=== PATIENT | female | born 1945 | race Caucasian/White ===

== ENCOUNTER 2020-05-05 | Outpatient (REF) | payer MEDICARE, MEDICAID, SELFPAY | END 2020-05-05 00:01 | LOC: HO.MMNH3L | PROVIDERS: Visit Provider Family Medicine | DX: Z20.828 Contact with and (suspected) exposure to other viral communicable diseases (principal) | CPT/HCPCS: U0003 ==

== ENCOUNTER 2020-11-06 07:53 | Outpatient (REF) | payer MEDICARE, MEDICAID, SELFPAY ==
[2020-11-06 08:50] LABS: Hemoglobin 11.6 g/dl (12.0-16.0); Mean Corpuscular HGB Conc 32.2 g/dl (31.0-35.0); Mean Corpuscular Volume 102.3 fL (80-98); Mean Platelet Volume 10.5 fL (9.4-12.3); Platelet Count 271 X10*3/uL (160-400); Red Blood Count 3.52 X10*6/uL (4.20-5.50); Red Cell Distribution Width 13.9 % (11.0-16.0); White Blood Count 5.6 X10*3/uL (4.8-10.8)
[2020-11-06 09:12] LABS: Anion Gap 13 (12-20); Blood Urea Nitrogen 20 mg/dL (9-16); Calcium 9.2 mg/dL (8.4-10.2); Carbon Dioxide 28 mmol/L (22-29); Chloride 106 mmol/L (96-108); Estimated Average Glucose 160 mg/dL; Estimated Glomerular Filt Rate > 60; Glucose Random 117 mg/dL (60-115); Hemoglobin A1c % 7.2 %; Potassium 4.5 mmol/L (3.3-5.1); Sodium 142 mmol/L (135-145)
[2020-11-06 09:34] LABS: Free T4 (Free Thyroxine) 1.08 ng/dL (0.71-1.85); Thyroid Stimulating Hormone 1.15 uIU/mL (0.32-4.0)
== END 2020-11-06 07:54 | disposition home or self-care (01) ==
LOC: HO.MMNH3L 07:53
PROVIDERS: Visit Provider Family Medicine
DX: I10 Essential (primary) hypertension (principal); K21.9 Gastro-esophageal reflux disease without esophagitis; E11.9 Type 2 diabetes mellitus without complications
CPT/HCPCS: 36415; 80048; 83036; 84439; 84443; 85027

== ENCOUNTER 2021-03-05 23:00 | Outpatient (REF) | payer MEDICARE, MEDICAID, SELFPAY ==
[2021-03-06 05:49] LABS: Glucose Urine UA NEG (NEG); Leukocyte Esterase Urine 2+ (NEG); Nitrite Urine NEG (NEG); UACC Culture Trigger YES; Urine Blood NEG (NEG); Urine Ketones NEG (NEG); Urine Protein NEG (NEG-TRACE)
[2021-03-06 05:52] LABS: Appearance Urine CLEAR; Color Urine YELLOW
[2021-03-06 06:03] LABS: Bacteria Urine 4+ /LPF; Squamous Epithelial Cell Urine 1+ /LPF
== END 2021-03-05 23:01 | disposition home or self-care (01) ==
LOC: HO.MMNH3L 23:00
PROVIDERS: Visit Provider Family Medicine
DX: R41.0 Disorientation, unspecified (principal); N39.0 Urinary tract infection, site not specified
CPT/HCPCS: 81001; 87086; 87088; 87186

== ENCOUNTER 2021-03-06 05:07 | Outpatient (REF) | payer MEDICARE, MEDICAID, SELFPAY ==
[2021-03-06 05:10] LABS: MANUAL DIFF FLAG NO
[2021-03-06 05:46] LABS: Basophils Percent Auto 0.4 % (0-2); Eosinophils Absolute Auto 0.1 X10*3/uL (0.0-0.4); Eosinophils Percent Auto 1.3 % (0-4); Hematocrit 41.4 % (37-47); Hemoglobin 13.6 g/dl (12.0-16.0); Imm Gran Abs Auto 0.04 X10*3/uL (0.00-0.03); Imm Gran Pct Auto 0.4 % (0.0-0.4); Lymphocytes Absolute Auto 2.7 X10*3/uL (1.2-4.9); Mean Corpuscular HGB Conc 32.9 g/dl (31.0-35.0); Mean Corpuscular Hemoglobin 33.6 pg (27.0-33.0); Mean Corpuscular Volume 102.2 fL (80-98); Mean Platelet Volume 9.9 fL (9.4-12.3); Monocytes Absolute Auto 1.3 X10*3/uL (0.1-1.2); Monocytes Percent Auto 12.7 % (2-11); Neutrophils Absolute Auto 5.9 X10*3/uL (2.0-8.3); Neutrophils Percent Auto 58.2 % (45-73); Platelet Count 348 X10*3/uL (160-400); Red Blood Count 4.05 X10*6/uL (4.20-5.50); White Blood Count 10.1 X10*3/uL (4.8-10.8)
[2021-03-06 06:03] LABS: Alanine Aminotransferase 11 U/L (0-31); Albumin Level 4.2 g/dL (3.5-5.0); Alkaline Phosphatase 82 U/L (39-117); Anion Gap 15 (12-20); Aspartate Amino Transferase 13 U/L (5-31); Bilirubin Total 0.5 mg/dL (0.0-1.0); Blood Urea Nitrogen 20 mg/dL (9-16); Calcium 10.4 mg/dL (8.4-10.2); Carbon Dioxide 26 mmol/L (22-29); Chloride 104 mmol/L (96-108); Estimated Glomerular Filt Rate 44; Glucose Random 170 mg/dL (60-115); Potassium 4.9 mmol/L (3.3-5.1); Sodium 140 mmol/L (135-145)
== END 2021-03-06 05:08 | disposition home or self-care (01) ==
LOC: HO.MMNH3L 05:07
PROVIDERS: Visit Provider Family Medicine
DX: Z13.89 Encounter for screening for other disorder (principal)
CPT/HCPCS: 36415; 80053; 85025

== ENCOUNTER 2021-03-08 11:47 | Inpatient (IN) | payer MEDICARE, MEDICAID, SELFPAY ==
--- NOTE | ~2021-03-08 | CT_ITS ---
EXAMINATION: CT HEAD WITHOUT CONTRAST CLINICAL INFORMATION: Altered mental status COMPARISON: Previous exam December 2015 TECHNIQUE: Contiguous axial imaging was performed from the skull base to vertex without intravenous administration of contrast. This CT examination was performed using dose optimization techniques as appropriate, variously including the following: *Automated exposure control *Adjustment of mA and/or kV according to patient size (this includes techniques or standardized protocols for targeted exams where dose is matched to indication/reason for exam; i.e. extremities or head) *Use of iterative reconstruction technique DLP: 814 mGy-cm FINDINGS: There is no evidence of an extra-axial collection. There is no evidence of intra-axial or extra-axial hemorrhage. The ventricles and extra-axial CSF spaces are prominent. There is evidence of an old left occipital infarct that is new in the interval from 2016.. No mass, mass effect or acute infarct is seen. No skull fracture is seen. There is soft tissue opacification of the right mastoid air cells. Left mastoid air cells, middle ears and paranasal sinuses are clear. CT/CT head/brain wo con IMPRESSION: No acute findings. Old left occipital infarct. Soft tissue opacification of the right mastoid air cells questionable for mastoiditis. This is new from 2016 exam as well.
--- NOTE | ~2021-03-08 | FL_ITS ---
EXAMINATION: FL BARIUM SWALLOW CLINICAL INFORMATION: Esophageal obstruction. Rule out achalasia. COMPARISON: None TECHNIQUE: Limited barium swallow was performed using thin barium with the patient lying on the fluoroscopy table and slightly elevated. The patient could not swallow a barium tablet. Fluoroscopy time: 2.2 minutes DAP: 17 Gycm2 Images: 66 FINDINGS: No aspiration or penetration is seen. There is abnormal esophageal motility. There is persistent dilatation of the esophagus suggestive and narrowing distally suggestive of achalasia. There is a small sliding-type hiatal hernia. Gastroesophageal reflux was not observed the patient in this position. Patient was administered a barium tablet. This stayed in the mouth and the patient could not swallow the tablet. FL/FL barium swallow IMPRESSION: Limited exam. Abnormal esophageal motility and achalasia. Small sliding-type hiatal hernia.
--- NOTE | ~2021-03-08 | CT_ITS ---
EXAMINATION: CT CHEST WITHOUT CONTRAST CLINICAL INFORMATION: Question aspiration. Acute mental status change. COMPARISON: Previous chest x-rays most recent March 2017 chest CTA December 2014 TECHNIQUE: Multidetector volumetric CT imaging of the chest was done. Axial MIP volume rendering provided. Sagittal and coronal reformatted images were obtained. This CT examination was performed using dose optimization techniques as appropriate, variously including the following: *Automated exposure control *Adjustment of mA and/or kV according to patient size (this includes techniques or standardized protocols for targeted exams where dose is matched to indication/reason for exam; i.e. 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 LUNGS: There is bilateral lower lobe volume loss. There is right lower lobe airspace disease with air bronchograms suggestive of pneumonia. There is also evidence of right lower lobe atelectasis. There is atelectasis or pneumonia in the left lower lobe. There is subsegmental atelectasis in the inferior segment of the lingula and dependently in both upper lobes. There is a small 2 mm left upper lobe nodule axial image 74 series 16. There is a 3 mm right upper lobe nodule axial image 199 series 16. MEDIASTINUM: The mediastinum is normal. PLEURA: There is no pleural effusion. No pleural mass or thickening. AXILLA: No lymphadenopathy. UPPER ABDOMEN: There is a 1 cm low-attenuation lesion exophytic to the upper pole of the left kidney suggestive of a cyst. OSSEOUS STRUCTURES: There is curvature of the lower thoracic and upper lumbar spine to the right. There are degenerative changes of the spine. CT/CT chest wo con IMPRESSION: Bibasilar atelectasis and pneumonia, right greater than left. There is volume loss to the both lower lobes..
[2021-03-08 11:52] VITALS: BP 90/52; PULSE 120; O2SAT 94
[2021-03-08 11:54] VITALS: BP 102/63; PULSE 108; RESP 14; TEMP 36.6; O2SAT 95; BMI 37.2
--- NOTE | 2021-03-08 12:01 | ED_ITS ---
HPI - General Adult General Chief complaint: Altered Mental Status Stated complaint: has uti, ams Time Seen by Provider: 03/08/21 12:00 Source: EMS Mode of arrival: EMS Limitations: altered mental status History of Present Illness HPI narrative: 75-year-old female presents from her senior [facility] because of the staff's concerns there for altered mental status, low oxygen saturation, possible aspiration, and UTI. Patient is being treated with Macrobid for UTI. Macrobid was started 2 days ago. Staff at senior care stated there was a possible aspiration when patient was eating yesterday. Chest x-ray was negative yesterday. Patient is normally on 2-3 L of oxygen, now she requires 4 L of oxygen. Staff at senior care states patient's oxygen was in the low 90s earlier today. EMS states patient's blood pressure was 90/52 upon arrival. Staff at senior care states patient's mental status has changed since yesterday and worsened. Patient does not have a history of dementia. Patient has a past medical history of COPD, atrial fibrillation, diabetes, chronic kidney disease, hypertension, B12 deficiency, hypothyroid, bipolar, trouble walking. Related Data Home Medications Medication Instructions Recorded Confirmed benztropine 1 mg tablet 1 tab PO BID 03/08/21 03/08/21 cetirizine 10 mg tablet 10 mg PO DAILY 03/08/21 03/08/21 clonazepam 0.25 mg disintegrating 0.25 mg PO Q12H PRN 03/08/21 03/08/21 tablet clonazepam 0.5 mg tablet 1 tab PO BEDTIME 03/08/21 03/08/21 cyanocobalamin (vitamin B-12) 100 200 mcg PO DAILY 03/08/21 03/08/21 mcg tablet enalapril maleate 5 mg tablet 5 mg PO DAILY 03/08/21 03/08/21 (Vasotec) fentanyl 12 mcg/hr transdermal 1 patch TOPICAL Q3D 03/08/21 03/08/21 patch fluoxetine 10 mg capsule 1 cap PO DAILY 03/08/21 03/08/21 fluoxetine 20 mg capsule 2 cap PO QAM 03/08/21 03/08/21 gabapentin 400 mg capsule 1 cap PO DAILY 03/08/21 03/08/21 gabapentin 600 mg tablet 1 tab PO BID 03/08/21 03/08/21 levothyroxine 75 mcg tablet 1 tab PO DAILY 03/08/21 03/08/21 nitrofurantoin 100 mg PO BID 03/08/21 03/08/21 monohydrate/macrocrystals 100 mg capsule (Macrobid) nitroglycerin 0.4 mg sublingual 0.4 mg SUBLINGUAL DIRECTED PRN 03/08/21 03/08/21 tablet oxycodone 5 mg tablet 1 tab PO QID PRN 03/08/21 03/08/21 pioglitazone 15 mg tablet (Actos) 15 mg PO DAILY 03/08/21 03/08/21 ziprasidone HCl 20 mg capsule 20 mg PO BID 03/08/21 03/08/21 (Geodon) Allergies Allergy/AdvReac Type Severity Reaction Status Date / Time ciprofloxacin [From CIPRO] Allergy Unknown UNKNOWN Unverified 03/20/20 14:33 clarithromycin [From Biaxin] Allergy Unknown UNKNOWN Unverified 03/20/20 14:33 Effexor Allergy Unknown Unverified 12/05/15 00:00 Floxin Otic Allergy Unknown Unverified 12/05/15 00:00 levofloxacin [From LEVAQUIN] Allergy Unknown UNKNOWN Unverified 03/20/20 14:33 loratadine [From CLARITIN] Allergy Unknown UNKNOWN Unverified 03/20/20 14:33 ofloxacin [From FLOXIN] Allergy Unknown UNKNOWN Unverified 03/20/20 14:33 penicillin V Allergy Unknown Unverified 12/05/15 00:00 Penicillins [PENICILLINS] Allergy Unknown UNKNOWN Unverified 03/20/20 14:33 sertraline [Zoloft] Allergy Unknown Verified 12/05/15 00:00 Sulfa (Sulfonamide Allergy Unknown Unverified 09/24/16 00:00 Antibiotics) sulfamethoxazole Allergy Unknown UNKNOWN Unverified 03/20/20 14:33 [From BACTRIM] trimethoprim [From BACTRIM] Allergy Unknown UNKNOWN Unverified 03/20/20 14:33 venlafaxine [VENLAFAXINE] Allergy Unknown UNKNOWN Unverified 03/20/20 14:33 From CIPRO Allergy Unknown UNKNOWN Uncoded 03/20/20 14:33 From EFFEXOR Allergy Unknown UNKNOWN Uncoded 03/20/20 14:33 From ZOLOFT Allergy Unknown UNKNOWN Uncoded 03/20/20 14:33 Review of Systems Review of Systems: Patient able to tell me where she is, day of the week, and the season. Denies all complaints. However, patient keeps asking the same questions over and over, and seems disoriented. Patient is denying any positive review of systems. ROS unable to obtain due to patient's altered mental status. 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 Weakness Surgical History History of total replacement of right hip Social History Social History Advance Directives: No Advance Directives Information Provided: No Physical Exam Vital Signs: Vital Signs: Last Vital Signs Temp 100.3 F 03/08/21 14:13 Pulse 95 03/08/21 14:13 Resp 16 03/08/21 14:13 BP 106/50 L 03/08/21 14:13 Pulse Ox 95 03/08/21 14:13 Oxygen Flow Rate 3 03/08/21 11:54 Body Mass Index 37.2 Const: General: alert, awake and confusion Nutritional Appearance: obese morbidly obese Orientation/consciousness: oriented to person, oriented to place and confusion Limitations: altered mental status HENMT: Head: Yes normal to inspection, Yes normocephalic and Yes atraumatic Ears: hearing grossly normal bilaterally General nose exam: Normal external nose present Face and sinus: Yes normal facial exam Mouth: mucous membranes dry Throat: Yes posterior oropharynx normal and Yes other (dry mucous membranes) Eyes: Pupils: Equal, round and reactive pupils present EOM: EOMs intact bilaterally Neck: Neck: Yes normal visual inspection, Yes full ROM, Yes no meningeal signs and Yes trachea midline Resp: Effort & Inspection: normal respiratory effort and able to speak in complete sentences Auscultation: no rales, no rhonchi, no wheezes and diminished lung sounds diffuse Cardio: Rate: tachycardic Rhythm: regular rhythm Heart sounds: S1 normal heart sound present and S2 normal heart sound present GI: Inspection: Yes Abdominal panniculus present and Yes obesity Palpation (GI): Soft to palpation, nontender and no guarding Percussion: Yes normal to percussion Auscultation: normal bowel sounds Skin: Other: Shiny skin with nonpitting edema bilateral lower extremities Neuro: General: oriented to person, oriented to place, no meningeal signs and confusion Cranial nerves: Yes Equal, round and reactive pupils present Extrem: Right lower extremity: edema Details: non-pitting and lower leg Details: Negative for no erythema and no unusual warmth Left lower extremity: edema Details: non-pitting and lower leg Details: Negative for no erythema and no unusual warmth Psych: Appearance: disheveled Attitude: cooperative Course Course Course Narrative: 75 year old female presenting from senior care for decrease in mental status. Patient is being treated for UTI, and had a possible aspiration event yesterday. Patient is afebrile, blood pressure 102/63. She is sinus tachy at 1:09 a.m.. Troponin 5.1. White blood cell count 14.4, blood glucose 235, lactic acid 1.2. COVID negative. Pro-BNP normal. Initiated sepsis workup, started sepsis bolus on ideal body weight because patient's BMI is greater than 31. Started cefepime (pt has allergies to pcn, flouroquinolones, sulfa), which will cover Pseudomonas if this is aspiration pneumonia, as well as UTI. Urine is positive for leukocyte esterase and white blood cells. Head CT shows nothing acute, shows an old infarct. Chest CT is remarkable for bilateral pneumonia, right greater than left. Will admit patient for UTI and pneumonia and altered mental status Medical Decision Making Lab Data Result diagrams: 03/08/21 12:33 03/08/21 12:33 Labs: Lab Results 03/08/21 03/08/21 03/08/21 Range/Units 11:56 12:33 12:33 WBC 14.4 H (4.8-10.8) X10*3/uL RBC 3.40 L (4.20-5.50) X10*6/uL Hgb 11.4 L (12.0-16.0) g/dl Hct 35.0 L (37-47) % MCV 102.9 H (80-98) fL MCH 33.5 H (27.0-33.0) pg MCHC 32.6 (31.0-35.0) g/dl RDW 14.2 (11.0-16.0) % Plt Count 304 (160-400) X10*3/uL MPV 10.0 (9.4-12.3) fL Immature Gran % (Auto) 0.4 (0.0-0.4) % Neut % (Auto) 86.9 H (45-73) % Lymph % (Auto) 4.6 L (20-40) % [place] % (Auto) 6.7 (2-11) % Eos % (Auto) 1.3 (0-4) % Baso % (Auto) 0.1 (0-2) % Lymph # (Auto) 0.7 L (1.2-4.9) X10*3/uL [place] # (Auto) 1.0 (0.1-1.2) X10*3/uL Eos # (Auto) 0.2 (0.0-0.4) X10*3/uL Baso # (Auto) 0.0 (0.0-0.2) X10*3/uL Abs Immat Gran (auto) 0.06 H (0.00-0.03) X10*3/uL Absolute Neuts (auto) 12.5 H (2.0-8.3) X10*3/uL Absolute Nucleated RBC 0.000 (0.0-0.012) X10*3/uL Nucleated RBC % (auto) 0.0 (0.0-0.2) /100WBC PT (9.9-13.0) SEC INR (0.9-1.1) APTT (24.1-38.0) SEC Sodium 137 (135-145) mmol/L Potassium 4.6 (3.3-5.1) mmol/L Chloride 105 (96-108) mmol/L Carbon Dioxide 24 (22-29) mmol/L Anion Gap 13 (12-20) BUN 27 H (9-16) mg/dL Creatinine 1.34 (0.5-1.4) mg/dL Estim Creat Clear Calc 40.0 Estimated GFR 38 POC Glucose 260 H (60-115) mg/dL Random Glucose 235 H D (60-115) mg/dL Lactic Acid (0.5-2.0) mmol/L Calcium 9.0 D (8.4-10.2) mg/dL Total Bilirubin 0.7 (0.0-1.0) mg/dL AST 12 (5-31) U/L ALT 15 (0-31) U/L Alkaline Phosphatase 73 (39-117) U/L Troponin I High Sens (<3.5-17.0) ng/L B-Natriuretic Peptide (<100) pg/mL Total Protein 6.3 L (6.5-8.0) g/dL Albumin 3.7 (3.5-5.0) g/dL Urine Color Urine Appearance Urine pH (5.0-8.0) Ur Specific [place] (1.005-1.025) Urine Protein (NEG-TRACE) MG/DL Urine Glucose (UA) (NEG) MG/DL Urine Ketones (NEG) MG/DL Urine Blood (NEG) Urine Nitrite (NEG) Ur Leukocyte Esterase (NEG) Urine RBC (0) /HPF Urine WBC (0-4) /HPF Ur Squamous Epith Cells /LPF Urine Bacteria /LPF Urine Mucus /LPF COVID-19 (IVANNA) (Negative) COVID-19 Clin Com 03/08/21 03/08/21 03/08/21 Range/Units 12:33 12:33 12:33 WBC (4.8-10.8) X10*3/uL RBC (4.20-5.50) X10*6/uL Hgb (12.0-16.0) g/dl Hct (37-47) % MCV (80-98) fL MCH (27.0-33.0) pg MCHC (31.0-35.0) g/dl RDW (11.0-16.0) % Plt Count (160-400) X10*3/uL MPV (9.4-12.3) fL Immature Gran % (Auto) (0.0-0.4) % Neut % (Auto) (45-73) % Lymph % (Auto) (20-40) % [place] % (Auto) (2-11) % Eos % (Auto) (0-4) % Baso % (Auto) (0-2) % Lymph # (Auto) (1.2-4.9) X10*3/uL [place] # (Auto) (0.1-1.2) X10*3/uL Eos # (Auto) (0.0-0.4) X10*3/uL Baso # (Auto) (0.0-0.2) X10*3/uL Abs Immat Gran (auto) (0.00-0.03) X10*3/uL Absolute Neuts (auto) (2.0-8.3) X10*3/uL Absolute Nucleated RBC (0.0-0.012) X10*3/uL Nucleated RBC % (auto) (0.0-0.2) /100WBC PT (9.9-13.0) SEC INR (0.9-1.1) APTT (24.1-38.0) SEC Sodium (135-145) mmol/L Potassium (3.3-5.1) mmol/L Chloride (96-108) mmol/L Carbon Dioxide (22-29) mmol/L Anion Gap (12-20) BUN (9-16) mg/dL Creatinine (0.5-1.4) mg/dL Estim Creat Clear Calc Estimated GFR POC Glucose (60-115) mg/dL Random Glucose (60-115) mg/dL Lactic Acid 1.2 (0.5-2.0) mmol/L Calcium (8.4-10.2) mg/dL Total Bilirubin (0.0-1.0) mg/dL AST (5-31) U/L ALT (0-31) U/L Alkaline Phosphatase (39-117) U/L Troponin I High Sens 5.1 (<3.5-17.0) ng/L B-Natriuretic Peptide 42 (<100) pg/mL Total Protein (6.5-8.0) g/dL Albumin (3.5-5.0) g/dL Urine Color Urine Appearance Urine pH (5.0-8.0) Ur Specific [place] (1.005-1.025) Urine Protein (NEG-TRACE) MG/DL Urine Glucose (UA) (NEG) MG/DL Urine Ketones (NEG) MG/DL Urine Blood (NEG) Urine Nitrite (NEG) Ur Leukocyte Esterase (NEG) Urine RBC (0) /HPF Urine WBC (0-4) /HPF Ur Squamous Epith Cells /LPF Urine Bacteria /LPF Urine Mucus /LPF COVID-19 (IVANNA) Negative (Negative) COVID-19 Clin Com See Note 03/08/21 03/08/21 03/08/21 Range/Units 12:33 14:15 17:14 WBC (4.8-10.8) X10*3/uL RBC (4.20-5.50) X10*6/uL Hgb (12.0-16.0) g/dl Hct (37-47) % MCV (80-98) fL MCH (27.0-33.0) pg MCHC (31.0-35.0) g/dl RDW (11.0-16.0) % Plt Count (160-400) X10*3/uL MPV (9.4-12.3) fL Immature Gran % (Auto) (0.0-0.4) % Neut % (Auto) (45-73) % Lymph % (Auto) (20-40) % [place] % (Auto) (2-11) % Eos % (Auto) (0-4) % Baso % (Auto) (0-2) % Lymph # (Auto) (1.2-4.9) X10*3/uL [place] # (Auto) (0.1-1.2) X10*3/uL Eos # (Auto) (0.0-0.4) X10*3/uL Baso # (Auto) (0.0-0.2) X10*3/uL Abs Immat Gran (auto) (0.00-0.03) X10*3/uL Absolute Neuts (auto) (2.0-8.3) X10*3/uL Absolute Nucleated RBC (0.0-0.012) X10*3/uL Nucleated RBC % (auto) (0.0-0.2) /100WBC PT 13.4 H (9.9-13.0) SEC INR 1.2 H (0.9-1.1) APTT 41.1 H (24.1-38.0) SEC Sodium (135-145) mmol/L Potassium (3.3-5.1) mmol/L Chloride (96-108) mmol/L Carbon Dioxide (22-29) mmol/L Anion Gap (12-20) BUN (9-16) mg/dL Creatinine (0.5-1.4) mg/dL Estim Creat Clear Calc Estimated GFR POC Glucose 132 H (60-115) mg/dL Random Glucose (60-115) mg/dL Lactic Acid (0.5-2.0) mmol/L Calcium (8.4-10.2) mg/dL Total Bilirubin (0.0-1.0) mg/dL AST (5-31) U/L ALT (0-31) U/L Alkaline Phosphatase (39-117) U/L Troponin I High Sens (<3.5-17.0) ng/L B-Natriuretic Peptide (<100) pg/mL Total Protein (6.5-8.0) g/dL Albumin (3.5-5.0) g/dL Urine Color YELLOW Urine Appearance CLEAR Urine pH 6.0 (5.0-8.0) Ur Specific [place] <= 1.005 (1.005-1.025) Urine Protein NEG (NEG-TRACE) MG/DL Urine Glucose (UA) NEG (NEG) MG/DL Urine Ketones NEG (NEG) MG/DL Urine Blood NEG (NEG) Urine Nitrite NEG (NEG) Ur Leukocyte Esterase 1+ H (NEG) Urine RBC 0-2 (0) /HPF Urine WBC 10-14 H (0-4) /HPF Ur Squamous Epith Cells 1+ /LPF Urine Bacteria NONE /LPF Urine Mucus 1+ /LPF COVID-19 (IVANNA) (Negative) COVID-19 Clin Com ECG Data Interpretation: Sinus tachycardia at rate of 109. Question left axis deviation. VA interval 172, QRS 84, QTC 447. No acute ischemic changes, no ST elevations or depressions Discharge Plan Discharge Clinical Impression: Acute UTI Altered mental status Qualifiers: Altered mental status type: disorientation Qualified Code(s): R41.0 - Disorientation, unspecified Pneumonia Qualifiers: Pneumonia type: aspiration pneumonia Aspiration pneumonia type: unspecified Laterality: bilateral Lung location: lower lobe of lung Qualified Code(s): J69.0 - Pneumonitis due to inhalation of food and vomit Patient Disposition: Admitted As Inpatient
[2021-03-08 12:02] LABS: Glucose, Whole Blood 260 mg/dL (60-115)
--- NOTE | 2021-03-08 12:04 | ECG_ITS ---
Test Reason : AMS Blood Pressure : / mmHG Vent. Rate : 109 BPM Atrial Rate : 109 BPM P-R Int : 172 ms QRS Dur : 084 ms QT Int : 332 ms P-R-T Axes : 058 -22 027 degrees QTc Int : 447 ms Sinus tachycardia Low voltage QRS Borderline ECG When compared with ECG of 05-MAR-2017 19:01, Nonspecific T wave abnormality, improved in Anterior leads Referred By: Mili Sawyer Electronically Signed By:LUCI BARBER
[2021-03-08 12:41] LABS: MANUAL DIFF FLAG NO
[2021-03-08 12:44] LABS: Basophils Percent Auto 0.1 % (0-2); Eosinophils Absolute Auto 0.2 X10*3/uL (0.0-0.4); Eosinophils Percent Auto 1.3 % (0-4); Hemoglobin 11.4 g/dl (12.0-16.0); Imm Gran Abs Auto 0.06 X10*3/uL (0.00-0.03); Imm Gran Pct Auto 0.4 % (0.0-0.4); Lymphocytes Absolute Auto 0.7 X10*3/uL (1.2-4.9); Lymphocytes Percent Auto 4.6 % (20-40); Mean Corpuscular HGB Conc 32.6 g/dl (31.0-35.0); Mean Corpuscular Hemoglobin 33.5 pg (27.0-33.0); Mean Corpuscular Volume 102.9 fL (80-98); Monocytes Percent Auto 6.7 % (2-11); Neutrophils Absolute Auto 12.5 X10*3/uL (2.0-8.3); Neutrophils Percent Auto 86.9 % (45-73); Platelet Count 304 X10*3/uL (160-400); Red Cell Distribution Width 14.2 % (11.0-16.0); White Blood Count 14.4 X10*3/uL (4.8-10.8)
[2021-03-08] MEDS: cefEPime HCl 2 GM in 0.9 % Sodium Chloride 50 ML IV (12:47)
[2021-03-08 12:50] LABS: INTERNATIONAL NORM RATIO 1.2 (0.9-1.1); Prothrombin Time 13.4 SEC (9.9-13.0)
[2021-03-08 12:52] LABS: Lactic Acid 1.2 mmol/L (0.5-2.0)
[2021-03-08 12:53] LABS: Partial Thromboplastin Time 41.1 SEC (24.1-38.0)
[2021-03-08 12:57] LABS: Alanine Aminotransferase 15 U/L (0-31); Albumin Level 3.7 g/dL (3.5-5.0); Alkaline Phosphatase 73 U/L (39-117); Anion Gap 13 (12-20); Aspartate Amino Transferase 12 U/L (5-31); Bilirubin Total 0.7 mg/dL (0.0-1.0); Blood Urea Nitrogen 27 mg/dL (9-16); COVID-19 Test Negative (Negative); Carbon Dioxide 24 mmol/L (22-29); Chloride 105 mmol/L (96-108); Estimated Glomerular Filt Rate 38; Glucose Random 235 mg/dL (60-115); Potassium 4.6 mmol/L (3.3-5.1); Sodium 137 mmol/L (135-145); Total Protein 6.3 g/dL (6.5-8.0)
[2021-03-08 13:05] LABS: Troponin-I High Sensitivity 5.1 ng/L (<3.5-17.0)
[2021-03-08 14:07] LABS: B Type Natriuretic Peptide 42 pg/mL (<100)
[2021-03-08 14:13] VITALS: BP 106/50; PULSE 95; RESP 16; TEMP 37.9; O2SAT 95
[2021-03-08 14:21] LABS: Glucose Urine UA NEG (NEG); Leukocyte Esterase Urine 1+ (NEG); Nitrite Urine NEG (NEG); Specific Gravity - Urine <= 1.005 (1.005-1.025); Urine Blood NEG (NEG); Urine Ketones NEG (NEG); Urine Protein NEG (NEG-TRACE)
[2021-03-08 14:22] LABS: Appearance Urine CLEAR; Color Urine YELLOW
[2021-03-08 14:29] LABS: Mucus Urine 1+ /LPF; RBC Urine 0-2 /HPF (0); Squamous Epithelial Cell Urine 1+ /LPF
--- NOTE | 2021-03-08 15:46 | P.HPHOSP_ITS ---
History of Present Illness Date of Service: 03/08/21 75-year-old female presents from her [facility] because of the staff's concerns there for altered mental status, low oxygen saturation, possible aspiration, and UTI.? Patient is being treated with Macrobid for UTI.? Macrobid was started 2 days ago.?Staff at shelter stated there was a possible aspiration when patient was eating yesterday.? Chest x-ray was negative yesterday.? Patient is normally on 2-3 L of oxygen, now she requires 4 L of oxygen.? Staff at shelter states patient's oxygen was in the low 90s earlier today.?EMS stated patient's blood pressure was 90/52 upon arrival.? Staff at shelter states patient's mental status has changed since yesterday and worsened.? She had a positive urine culture on March 05 that showed E coli. She had been on nitrofurantoin. Chest x-ray today showed bilateral atelectasis and pneumonia. vital signs stable. She was given a dose of cefepime in the ER. She will be admitted for further management treatment of encephalopathy secondary to UTI and community-acquired pneumonia. 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 Weakness Surgical History History of total replacement of right hip Social History Advance Directives: No Advance Directives Information Provided: No Meds Allergies Allergy/AdvReac Type Severity Reaction Status Date / Time ciprofloxacin [From CIPRO] Allergy Unknown UNKNOWN Unverified 03/20/20 14:33 clarithromycin [From Biaxin] Allergy Unknown UNKNOWN Unverified 03/20/20 14:33 Effexor Allergy Unknown Unverified 12/05/15 00:00 Floxin Otic Allergy Unknown Unverified 12/05/15 00:00 levofloxacin [From LEVAQUIN] Allergy Unknown UNKNOWN Unverified 03/20/20 14:33 loratadine [From CLARITIN] Allergy Unknown UNKNOWN Unverified 03/20/20 14:33 ofloxacin [From FLOXIN] Allergy Unknown UNKNOWN Unverified 03/20/20 14:33 penicillin V Allergy Unknown Unverified 12/05/15 00:00 Penicillins [PENICILLINS] Allergy Unknown UNKNOWN Unverified 03/20/20 14:33 sertraline [Zoloft] Allergy Unknown Verified 12/05/15 00:00 Sulfa (Sulfonamide Allergy Unknown Unverified 09/24/16 00:00 Antibiotics) sulfamethoxazole Allergy Unknown UNKNOWN Unverified 03/20/20 14:33 [From BACTRIM] trimethoprim [From BACTRIM] Allergy Unknown UNKNOWN Unverified 03/20/20 14:33 venlafaxine [VENLAFAXINE] Allergy Unknown UNKNOWN Unverified 03/20/20 14:33 From CIPRO Allergy Unknown UNKNOWN Uncoded 03/20/20 14:33 From EFFEXOR Allergy Unknown UNKNOWN Uncoded 03/20/20 14:33 From ZOLOFT Allergy Unknown UNKNOWN Uncoded 03/20/20 14:33 Home Medications Medication Instructions Recorded Confirmed Last Taken Type benztropine 1 mg tablet 1 tab PO BID 03/08/21 03/08/21 Unknown History cetirizine 10 mg tablet 10 mg PO DAILY 03/08/21 03/08/21 Unknown History clonazepam 0.25 mg disintegrating 0.25 mg PO Q12H PRN 03/08/21 03/08/21 Unknown History tablet clonazepam 0.5 mg tablet 1 tab PO BEDTIME 03/08/21 03/08/21 Unknown History cyanocobalamin (vitamin B-12) 100 200 mcg PO DAILY 03/08/21 03/08/21 Unknown History mcg tablet enalapril maleate 5 mg tablet 5 mg PO DAILY 03/08/21 03/08/21 Unknown History (Vasotec) fentanyl 12 mcg/hr transdermal 1 patch TOPICAL Q3D 03/08/21 03/08/21 Unknown History patch fluoxetine 10 mg capsule 1 cap PO DAILY 03/08/21 03/08/21 Unknown History fluoxetine 20 mg capsule 2 cap PO QAM 03/08/21 03/08/21 Unknown History gabapentin 400 mg capsule 1 cap PO DAILY 03/08/21 03/08/21 Unknown History gabapentin 600 mg tablet 1 tab PO BID 03/08/21 03/08/21 Unknown History levothyroxine 75 mcg tablet 1 tab PO DAILY 03/08/21 03/08/21 Unknown History nitrofurantoin 100 mg PO BID 03/08/21 03/08/21 Unknown History monohydrate/macrocrystals 100 mg capsule (Macrobid) nitroglycerin 0.4 mg sublingual 0.4 mg SUBLINGUAL DIRECTED PRN 03/08/21 03/08/21 Unknown History tablet oxycodone 5 mg tablet 1 tab PO QID PRN 03/08/21 03/08/21 Unknown History pioglitazone 15 mg tablet (Actos) 15 mg PO DAILY 03/08/21 03/08/21 Unknown History ziprasidone HCl 20 mg capsule 20 mg PO BID 03/08/21 03/08/21 Unknown History (Abilio) Physical Exam Vital Signs and Narrative: Vital Signs: Last Vital Signs Temp 100.3 F 03/08/21 14:13 Pulse 95 03/08/21 14:13 Resp 16 03/08/21 14:13 BP 106/50 L 03/08/21 14:13 Pulse Ox 95 03/08/21 14:13 Oxygen Flow Rate 3 03/08/21 11:54 Body Mass Index 37.2 Appearing in no acute distress head is normocephalic atraumatic eyes pupils are PERRLA sclera is anicteric mouth throat mucous membranes are intact and moist neck is supple no lymphadenopathy, no JVD noted lung sounds are clear to auscultation heart regular rate rhythm, clear S1, S2 positive bowel sounds, abdomen is soft, nontender neuro patient is alert x3, no focal deficits Results Labs CBC and Chem 7: 03/08/21 12:33 03/08/21 12:33 Labs: Laboratory Results - last 24 hr 03/08/21 03/08/21 03/08/21 11:56 12:33 12:33 MCV 102.9 H MCH 33.5 H MCHC 32.6 RDW 14.2 Plt Count 304 MPV 10.0 Immature Gran % (Auto) 0.4 Neut % (Auto) 86.9 H Lymph % (Auto) 4.6 L [place] % (Auto) 6.7 Eos % (Auto) 1.3 Baso % (Auto) 0.1 Lymph # (Auto) 0.7 L [place] # (Auto) 1.0 Eos # (Auto) 0.2 Baso # (Auto) 0.0 Abs Immat Gran (auto) 0.06 H Absolute Neuts (auto) 12.5 H Absolute Nucleated RBC 0.000 Nucleated RBC % (auto) 0.0 PT INR APTT Anion Gap 13 Estim Creat Clear Calc 40.0 Estimated GFR 38 POC Glucose 260 H Random Glucose 235 H D Lactic Acid Calcium 9.0 D Total Bilirubin 0.7 AST 12 ALT 15 Alkaline Phosphatase 73 Troponin I High Sens B-Natriuretic Peptide Total Protein 6.3 L Albumin 3.7 Urine Color Urine Appearance Urine pH Ur Specific [place] Urine Protein Urine Glucose (UA) Urine Ketones Urine Blood Urine Nitrite Ur Leukocyte Esterase Urine RBC Urine WBC Ur Squamous Epith Cells Urine Bacteria Urine Mucus COVID-19 (IVANNA) COVID-19 Clin Com 03/08/21 03/08/21 03/08/21 12:33 12:33 12:33 MCV MCH MCHC RDW Plt Count MPV Immature Gran % (Auto) Neut % (Auto) Lymph % (Auto) [place] % (Auto) Eos % (Auto) Baso % (Auto) Lymph # (Auto) [place] # (Auto) Eos # (Auto) Baso # (Auto) Abs Immat Gran (auto) Absolute Neuts (auto) Absolute Nucleated RBC Nucleated RBC % (auto) PT INR APTT Anion Gap Estim Creat Clear Calc Estimated GFR POC Glucose Random Glucose Lactic Acid 1.2 Calcium Total Bilirubin AST ALT Alkaline Phosphatase Troponin I High Sens 5.1 B-Natriuretic Peptide 42 Total Protein Albumin Urine Color Urine Appearance Urine pH Ur Specific [place] Urine Protein Urine Glucose (UA) Urine Ketones Urine Blood Urine Nitrite Ur Leukocyte Esterase Urine RBC Urine WBC Ur Squamous Epith Cells Urine Bacteria Urine Mucus COVID-19 (IVANNA) Negative COVID-19 Clin Com See Note 03/08/21 03/08/21 12:33 14:15 MCV MCH MCHC RDW Plt Count MPV Immature Gran % (Auto) Neut % (Auto) Lymph % (Auto) [place] % (Auto) Eos % (Auto) Baso % (Auto) Lymph # (Auto) [place] # (Auto) Eos # (Auto) Baso # (Auto) Abs Immat Gran (auto) Absolute Neuts (auto) Absolute Nucleated RBC Nucleated RBC % (auto) PT 13.4 H INR 1.2 H APTT 41.1 H Anion Gap Estim Creat Clear Calc Estimated GFR POC Glucose Random Glucose Lactic Acid Calcium Total Bilirubin AST ALT Alkaline Phosphatase Troponin I High Sens B-Natriuretic Peptide Total Protein Albumin Urine Color YELLOW Urine Appearance CLEAR Urine pH 6.0 Ur Specific [place] <= 1.005 Urine Protein NEG Urine Glucose (UA) NEG Urine Ketones NEG Urine Blood NEG Urine Nitrite NEG Ur Leukocyte Esterase 1+ H Urine RBC 0-2 Urine WBC 10-14 H Ur Squamous Epith Cells 1+ Urine Bacteria NONE Urine Mucus 1+ COVID-19 (IVANNA) COVID-19 Clin Com Imaging Radiologist's Impressions: Impressions Head CT 03/08/21 12:13 IMPRESSION: No acute findings. Old left occipital infarct. Soft tissue opacification of the right mastoid air cells questionable for mastoiditis. This is new from [address] 03/08/21 12:21 IMPRESSION: Bibasilar atelectasis and pneumonia, right greater than left. There is volume loss to the both lower lobes.. Assessment and Plan (1) Pneumonia: Qualifiers: Aspiration pneumonia type: unspecified Laterality: bilateral Lung location: lower lobe of lung Pneumonia type: aspiration pneumonia Qualified Code(s): J69.0 - Pneumonitis due to inhalation of food and vomit Status: Acute 75 year old women admitted with encephalopathy secondary to UTI and CAP Encephalopathy. Secondary to infection follow mental status CAP Rocephin, azithromycin Follow cx supplemental oxygen as needed UTI Rocephin recent urine cx ecoli Diabetes ss, ada diet Leukocytosis secondary to infection Mental health continue home medications DVT prophylaxis with heparin Attending Dr. Zamora Quality Stroke Does the patient have a stroke diagnosis?: No VTE Prior VTE?: No VTE Risk Level:: Medical - moderate - high VTE Device Contraindication: Treatment Not Indicated VTE Drug Contraindication: N/A - Med Ordered
[2021-03-08 17:19] LABS: Glucose, Whole Blood 132 mg/dL (60-115)
[2021-03-08] MEDS: Heparin Sodium,Porcine 5,000 UNIT/ML VIAL 5000 UNIT SUBCUT (17:24)
[2021-03-08] MEDS: 0.9 % Sodium Chloride Flush 3 ML SYRINGE IVFLUSH (17:25)
[2021-03-08] MEDS: Azithromycin 500 MG in 0.9 % Sodium Chloride 250 ML 125 MG IV (17:25)
--- NOTE | 2021-03-08 17:26 | PC.NURSE ---
Pt offers no complaints, denies pain or sob, confused speach, asking if she is in [facility] . Reoriented patient to situation multiple times.
[2021-03-08] MEDS: cefTRIAXone sodium 1 GM in 0.9 % Sodium Chloride 50 ML IV (19:58)
[2021-03-08 19:59] VITALS: BP 129/59; PULSE 114; RESP 18; TEMP 37.7; O2SAT 78
--- NOTE | 2021-03-08 20:03 | PC.NURSE ---
Pt resting in bed, had removed oxygen, found to be satting @ 78%. Pt denies SOB. Pt -> O2 via NC @ 3 lpm. O2 sat increasing easily while on oxygen. Pt extremely confused, asking for people and personal items that are not within the ED. Pt unsure of where she is, does not remember being in the ED. VSS at this time however pt extremely shaky, often setting off the cardiac/vascular sonographer as the monitor is reading her HR incorrectly. At rest, pt noted to be 110-114 bpm. Medicated per SEP. Awaiting room assignment.
--- NOTE | 2021-03-08 20:36 | PC.NURSE ---
Hospitalist contacted regarding lack of admission order for room 5. Hospitalist to correct.
[2021-03-08] MEDS: Insulin Lispro 100 UNIT/ML 3 ML VIAL SUBCUT (21:18)
--- NOTE | 2021-03-08 21:20 | PC.NURSE ---
POC 259 mg/dl. Pt medicated with Insulin per SEP.
[2021-03-08 21:23] LABS: Glucose, Whole Blood 259 mg/dL (60-115)
[2021-03-08 22:52] VITALS: PULSE 110; RESP 20; O2SAT 97
--- NOTE | 2021-03-08 23:48 | PC.NURSE ---
This RN calling [facility] [place] to give report.
--- NOTE | 2021-03-08 23:53 | PC.NURSE ---
Report given to ZULMA Ford.
[2021-03-09] VITALS (17 sets, daily range): BP systolic 101–195; BP diastolic 59–99; PULSE 68–115; RESP 16–22; TEMP 36.1–38.2; O2SAT 90–98
[2021-03-09] MEDS: Acetaminophen 325 MG TABLET 650 MG PO
--- NOTE | 2021-03-09 | ECG_ITS ---
Test Reason : CHEST PAIN Blood Pressure : / mmHG Vent. Rate : 106 BPM Atrial Rate : 106 BPM P-R Int : 190 ms QRS Dur : 094 ms QT Int : 348 ms P-R-T Axes : 023 -20 008 degrees QTc Int : 462 ms Sinus tachycardia with Premature atrial complexes Low voltage QRS Borderline ECG When compared with ECG of 08-MAR-2021 12:05, Premature atrial complexes are now Present Referred By: Susan Lundberg Electronically Signed By:LUCI BARBER
--- NOTE | 2021-03-09 00:02 | PC.NURSE ---
Rectal temp 100.7. Pt medicated with Tylenol. electronic calibration technician to prepare for transport to floor.
[2021-03-09 01:42] LABS: Glucose, Whole Blood 112 mg/dL (60-115)
[2021-03-09] MEDS: HYDROmorphone HCl 0.5 MG/0.5 ML SYRINGE IVPUSH (02:29)
[2021-03-09] MEDS: Heparin Sodium,Porcine 5,000 UNIT/ML VIAL 5000 UNIT SUBCUT ×2 (04:24→17:58)
[2021-03-09] MEDS: 0.9 % Sodium Chloride Flush 3 ML SYRINGE IVFLUSH ×6 (04:29→23:57)
[2021-03-09 05:15] LABS: MANUAL DIFF FLAG NO
[2021-03-09 05:24] LABS: Basophils Percent Auto 0.3 % (0-2); Eosinophils Absolute Auto 0.3 X10*3/uL (0.0-0.4); Hematocrit 32.3 % (37-47); Hemoglobin 10.4 g/dl (12.0-16.0); Imm Gran Abs Auto 0.04 X10*3/uL (0.00-0.03); Imm Gran Pct Auto 0.4 % (0.0-0.4); Lymphocytes Absolute Auto 1.4 X10*3/uL (1.2-4.9); Lymphocytes Percent Auto 13.3 % (20-40); Mean Corpuscular HGB Conc 32.2 g/dl (31.0-35.0); Mean Corpuscular Volume 102.5 fL (80-98); Mean Platelet Volume 10.5 fL (9.4-12.3); Neutrophils Absolute Auto 7.5 X10*3/uL (2.0-8.3); Platelet Count 283 X10*3/uL (160-400); Red Blood Count 3.15 X10*6/uL (4.20-5.50); Red Cell Distribution Width 14.1 % (11.0-16.0); White Blood Count 10.3 X10*3/uL (4.8-10.8)
[2021-03-09] MEDS: oxyCODONE HCl Immed Release 5 MG TABLET PO (05:38)
[2021-03-09 05:39] LABS: Anion Gap 12 (12-20); Blood Urea Nitrogen 22 mg/dL (9-16); Calcium 8.8 mg/dL (8.4-10.2); Carbon Dioxide 23 mmol/L (22-29); Chloride 107 mmol/L (96-108); Creatinine Clr Calc Pharmacy 53.1; Estimated Glomerular Filt Rate 53; Glucose Random 178 mg/dL (60-115); Potassium 4.6 mmol/L (3.3-5.1); Sodium 137 mmol/L (135-145)
[2021-03-09 07:22] LABS: Glucose, Whole Blood 154 mg/dL (60-115)
[2021-03-09] MEDS: Insulin Lispro 100 UNIT/ML 3 ML VIAL SUBCUT ×2 (07:42→21:03)
[2021-03-09] MEDS: Lidocaine 4 % Patch ADH..PATCH 1 PATCH TRANSDERMA (07:42)
[2021-03-09] MEDS: Nitroglycerin 0.4 MG TAB.SUBL SUBLINGUAL (08:28)
[2021-03-09 09:09] LABS: Troponin-I High Sensitivity < 3.5 ng/L (<3.5-17.0)
--- NOTE | 2021-03-09 09:47 | PM.IMPN ---
Progress Note: A&P (1) Chest pain: Status: Acute (2) Aspiration of food: Status: Acute (3) Acute encephalopathy: Status: Acute (4) Pneumonia: Status: Acute (5) E-coli UTI: Status: Acute Assessment and Plan: 75 year old women admitted with encephalopathy secondary to UTI and CAP ? Aspiration pneumonia difficulty swallowing failed bedside nursing swallow eval keep NPO Speech evaluation Chest pain. No ischemic changes on EKG neg troponin Frequent belching may be secondary to aspiration Encephalopathy. Secondary to infection follow mental status CAP Rocephin, azithromycin Follow cx supplemental oxygen as needed Tremor Chronic Ecoli UTI Rocephin Diabetes ss, ada diet Leukocytosis secondary to infection Mental health continue home medications DVT prophylaxis with heparin Attending Dr. Zamora Subjective Subjective Date of Service: 03/09/21 Review of Systems Follow up encephalopathy, CAP and UTI Unable to give hx d/t confusion she did state that she feels like there is something stuck in her throat Physical Exam Vital Signs: Vital Signs: Last Vital Signs Temp 97 F 03/09/21 07:08 Pulse 105 H 03/09/21 08:28 Resp 20 03/09/21 07:08 BP 153/87 H 03/09/21 08:28 Pulse Ox 90 L 03/09/21 07:08 Oxygen Flow Rate 3 03/08/21 11:54 Body Mass Index 37.2 Appearing in no acute distress lung sounds are clear to auscultation heart regular rate rhythm, clear S1, S2 positive bowel sounds, abdomen is soft, nontender neuro patient is alert, confused and forgetful, no focal deficits, hand tremors Objective Data Current Medications Generic Name Dose Route Start Last Admin Trade Name Freq PRN Reason Stop Dose Admin Acetaminophen 650 mg 03/08/21 15:55 03/09/21 00:00 Acetaminophen 325 Mg Tablet PO 650 mg Q6H PRN Administration Pain, Mild (Pain Scale 1-3) Benztropine Mesylate 1 mg 03/09/21 09:00 Benztropine Mesylate 1 Mg Tablet PO BID JINA Clonazepam 0.25 mg 03/09/21 09:00 Clonazepam 0.5 Mg Tablet PO Q12H PRN Anxiety Clonazepam 0.5 mg 03/09/21 21:00 Clonazepam 0.5 Mg Tablet PO BEDTIME JINA Cyanocobalamin 200 mcg 03/09/21 09:00 Cyanocobalamin (Vitamin B-12) 100 Mcg Tablet PO DAILY [facility] Dextrose 25 gm 03/08/21 16:00 Dextrose 50 % 25 Gm/50 Ml Vial IVPUSH Q15M PRN per Hypoglycemia Standing Ord. Protocol Enalapril Maleate 5 mg 03/09/21 09:00 Enalapril Maleate 5 Mg Tablet PO DAILY [facility] Protocol Fentanyl 12 mcg 03/09/21 09:00 Fentanyl 12 Mcg Patch.[id number] TRANSDERMA Q3D [facility] Fluoxetine HCl 10 mg 03/09/21 09:00 Fluoxetine Hcl 10 Mg Capsule PO DAILY [facility] Fluoxetine HCl 40 mg 03/09/21 09:00 Fluoxetine Hcl 20 Mg Capsule PO DAILY [facility] Gabapentin 400 mg 03/09/21 09:00 Gabapentin 400 Mg Capsule PO DAILY [facility] Gabapentin 600 mg 03/09/21 09:00 Gabapentin 600 Mg Tablet PO BID [facility] Glucose 15 gm 03/08/21 16:00 Glucose Gel 15 Gm Gel..Gram. PO Q15M PRN per Hypoglycemia Standing Ord. Protocol Heparin Sodium (Porcine) 5,000 unit 03/08/21 17:00 03/09/21 04:24 Heparin Sodium,Porcine 5,000 Unit/Ml Vial SUBCUT 5,000 unit Q12H [facility] Administration Ceftriaxone Sodium 1 gm/ 50 mls @ 100 mls/hr 03/08/21 20:00 03/08/21 20:37 Sodium Chloride IV Infused Q24H JINA Infusion Azithromycin 500 mg/ Sodium 250 mls @ 125 mls/hr 03/08/21 16:00 03/08/21 19:50 Chloride IV Infused Q24H JINA Infusion Insulin Human Lispro 0 unit 03/08/21 16:30 03/09/21 07:42 Insulin Lispro 100 Unit/Ml 3 Ml Vial SUBCUT 2 unit QIDACHS [facility] Administration Protocol Levothyroxine Sodium 75 mcg 03/09/21 09:00 Levothyroxine Sodium 75 Mcg Tablet PO DAILY [facility] Lidocaine 1 patch 03/09/21 09:00 03/09/21 07:42 Lidocaine 4 % Patch Adh..Patch TRANSDERMA 1 patch DAILY [facility] Administration Protocol Loratadine 10 mg 03/09/21 09:00 Loratadine 10 Mg Tablet PO DAILY [facility] Nitroglycerin 0.4 mg 03/09/21 08:07 03/09/21 08:28 Nitroglycerin 0.4 Mg Tab.Subl SUBLINGUAL 0.4 mg Q5MX3 PRN Administration Chest Pain Ondansetron HCl 4 mg 03/08/21 15:55 Ondansetron Hcl 4 Mg/2 Ml Vial IVPUSH Q8H PRN Nausea and Vomiting Oxycodone HCl 5 mg 03/09/21 05:07 03/09/21 05:38 Oxycodone Hcl Immed Release 5 Mg Tablet PO 5 mg Q6H PRN Administration Breakthrough Pain Sodium Chloride 3 ml 03/08/21 16:00 03/09/21 07:57 0.9 % Sodium Chloride Flush 3 Ml Syringe IVFLUSH 3 ml QSHIFT JINA Administration Sodium Chloride 3 ml 03/09/21 00:00 03/09/21 07:58 0.9 % Sodium Chloride Flush 3 Ml Syringe IVFLUSH Not Given QSHIFT JINA Ziprasidone 20 mg 03/09/21 09:00 Ziprasidone 20 Mg Capsule PO BID [facility] Labs CBC & Chem 7: 03/09/21 04:26 03/09/21 04:26 Labs: Laboratory Results - last 24 hr 03/08/21 03/08/21 03/08/21 11:56 12:33 12:33 MCV 102.9 H MCH 33.5 H MCHC 32.6 RDW 14.2 Plt Count 304 MPV 10.0 Immature Gran % (Auto) 0.4 Neut % (Auto) 86.9 H Lymph % (Auto) 4.6 L [place] % (Auto) 6.7 Eos % (Auto) 1.3 Baso % (Auto) 0.1 Lymph # (Auto) 0.7 L [place] # (Auto) 1.0 Eos # (Auto) 0.2 Baso # (Auto) 0.0 Abs Immat Gran (auto) 0.06 H Absolute Neuts (auto) 12.5 H Absolute Nucleated RBC 0.000 Nucleated RBC % (auto) 0.0 PT INR APTT Anion Gap 13 Estim Creat Clear Calc 40.0 Estimated GFR 38 POC Glucose 260 H Random Glucose 235 H D Lactic Acid Calcium 9.0 D Total Bilirubin 0.7 AST 12 ALT 15 Alkaline Phosphatase 73 Troponin I High Sens B-Natriuretic Peptide Total Protein 6.3 L Albumin 3.7 Urine Color Urine Appearance Urine pH Ur Specific [place] Urine Protein Urine Glucose (UA) Urine Ketones Urine Blood Urine Nitrite Ur Leukocyte Esterase Urine RBC Urine WBC Ur Squamous Epith Cells Urine Bacteria Urine Mucus COVID-19 (IVANNA) COVID-19 Clin Com 03/08/21 03/08/21 03/08/21 12:33 12:33 12:33 MCV MCH MCHC RDW Plt Count MPV Immature Gran % (Auto) Neut % (Auto) Lymph % (Auto) [place] % (Auto) Eos % (Auto) Baso % (Auto) Lymph # (Auto) [place] # (Auto) Eos # (Auto) Baso # (Auto) Abs Immat Gran (auto) Absolute Neuts (auto) Absolute Nucleated RBC Nucleated RBC % (auto) PT INR APTT Anion Gap Estim Creat Clear Calc Estimated GFR POC Glucose Random Glucose Lactic Acid 1.2 Calcium Total Bilirubin AST ALT Alkaline Phosphatase Troponin I High Sens 5.1 B-Natriuretic Peptide 42 Total Protein Albumin Urine Color Urine Appearance Urine pH Ur Specific [place] Urine Protein Urine Glucose (UA) Urine Ketones Urine Blood Urine Nitrite Ur Leukocyte Esterase Urine RBC Urine WBC Ur Squamous Epith Cells Urine Bacteria Urine Mucus COVID-19 (IVANNA) Negative COVID-19 Clin Com See Note 03/08/21 03/08/21 03/08/21 12:33 14:15 17:14 MCV MCH MCHC RDW Plt Count MPV Immature Gran % (Auto) Neut % (Auto) Lymph % (Auto) [place] % (Auto) Eos % (Auto) Baso % (Auto) Lymph # (Auto) [place] # (Auto) Eos # (Auto) Baso # (Auto) Abs Immat Gran (auto) Absolute Neuts (auto) Absolute Nucleated RBC Nucleated RBC % (auto) PT 13.4 H INR 1.2 H APTT 41.1 H Anion Gap Estim Creat Clear Calc Estimated GFR POC Glucose 132 H Random Glucose Lactic Acid Calcium Total Bilirubin AST ALT Alkaline Phosphatase Troponin I High Sens B-Natriuretic Peptide Total Protein Albumin Urine Color YELLOW Urine Appearance CLEAR Urine pH 6.0 Ur Specific [place] <= 1.005 Urine Protein NEG Urine Glucose (UA) NEG Urine Ketones NEG Urine Blood NEG Urine Nitrite NEG Ur Leukocyte Esterase 1+ H Urine RBC 0-2 Urine WBC 10-14 H Ur Squamous Epith Cells 1+ Urine Bacteria NONE Urine Mucus 1+ COVID-19 (IVANNA) COVID-19 Clin Com 03/08/21 03/09/21 03/09/21 21:15 00:39 04:26 MCV 102.5 H MCH 33.0 MCHC 32.2 RDW 14.1 Plt Count 283 MPV 10.5 Immature Gran % (Auto) 0.4 Neut % (Auto) 73.0 Lymph % (Auto) 13.3 L [place] % (Auto) 10.0 Eos % (Auto) 3.0 Baso % (Auto) 0.3 Lymph # (Auto) 1.4 [place] # (Auto) 1.0 Eos # (Auto) 0.3 Baso # (Auto) 0.0 Abs Immat Gran (auto) 0.04 H Absolute Neuts (auto) 7.5 Absolute Nucleated RBC 0.000 Nucleated RBC % (auto) 0.0 PT INR APTT Anion Gap Estim Creat Clear Calc Estimated GFR POC Glucose 259 H 112 Random Glucose Lactic Acid Calcium Total Bilirubin AST ALT Alkaline Phosphatase Troponin I High Sens B-Natriuretic Peptide Total Protein Albumin Urine Color Urine Appearance Urine pH Ur Specific [place] Urine Protein Urine Glucose (UA) Urine Ketones Urine Blood Urine Nitrite Ur Leukocyte Esterase Urine RBC Urine WBC Ur Squamous Epith Cells Urine Bacteria Urine Mucus COVID-19 (IVANNA) COVID-19 [employer] Com 03/09/21 03/09/21 03/09/21 04:26 07:08 08:32 MCV MCH MCHC RDW Plt Count MPV Immature Gran % (Auto) Neut % (Auto) Lymph % (Auto) [place] % (Auto) Eos % (Auto) Baso % (Auto) Lymph # (Auto) [place] # (Auto) Eos # (Auto) Baso # (Auto) Abs Immat Gran (auto) Absolute Neuts (auto) Absolute Nucleated RBC Nucleated RBC % (auto) PT INR APTT Anion Gap 12 Estim Creat Clear Calc 53.1 Estimated GFR 53 POC Glucose 154 H Random Glucose 178 H Lactic Acid Calcium 8.8 Total Bilirubin AST ALT Alkaline Phosphatase Troponin I High Sens < 3.5 B-Natriuretic Peptide Total Protein Albumin Urine Color Urine Appearance Urine pH Ur Specific [place] Urine Protein Urine Glucose (UA) Urine Ketones Urine Blood Urine Nitrite Ur Leukocyte Esterase Urine RBC Urine WBC Ur Squamous Epith Cells Urine Bacteria Urine Mucus COVID-19 (IVANNA) COVID-19 [employer] Com Quality Stroke Does the patient have a stroke diagnosis?: No VTE Prior VTE?: No VTE Risk Level:: Medical - moderate - high VTE Device Contraindication: Treatment Not Indicated VTE Drug Contraindication: N/A - Med Ordered
[2021-03-09] MEDS: fentaNYL 12 MCG PATCH.TD72 TRANSDERMA (10:56)
--- NOTE | 2021-03-09 11:20 | MHC.SL.SWA ---
Speech Pathologist Impression: Oralpharyngeal Dysphagia Esophageal Dysphagia Risk of Aspiration Due to: Poor PO Intake Reduced Cognition Dysphasia Diet Status: No Change Liquid Consistency and Strategies for Safe Swallow: Liquid Intake Recommendation: NPO Solid Food Consistency: Dietary Recommendations: NPO Oral Medication Intake: NPO Recommendation for Speech: Inpatient Speech Therapy GI consult to assess esophageal function Frequency/Duration: DITCH CLEANER will follow patient throughout her hospitalization as indicated, pending GI consult. Varnish Melter Clinican/Clinical Fellow: No Supervisory Statement: I have reviewed and agree with the student/clinical fellow's documentation: N/A Speech Language Pathologist: Celestina Kahn M.A., CCC-DITCH CLEANER
[2021-03-09 11:22] LABS: Glucose, Whole Blood 204 mg/dL (60-115)
--- NOTE | 2021-03-09 14:24 | MHC.SHP ---
Pre-Procedural Eval Section A Date of Service: 03/09/21 The patient is an INPATIENT: Yes The History & Physical has been completed within 30 days and I have reviewed it.: Yes Section B Chief Complaint: PNA Allergies: Allergies Allergy/AdvReac Type Severity Reaction Status Date / Time ciprofloxacin [From CIPRO] Allergy Unknown UNKNOWN Unverified 03/20/20 14:33 clarithromycin [From Biaxin] Allergy Unknown UNKNOWN Unverified 03/20/20 14:33 Effexor Allergy Unknown Unverified 12/05/15 00:00 Floxin Otic Allergy Unknown Unverified 12/05/15 00:00 levofloxacin [From LEVAQUIN] Allergy Unknown UNKNOWN Unverified 03/20/20 14:33 loratadine [From CLARITIN] Allergy Unknown UNKNOWN Unverified 03/20/20 14:33 ofloxacin [From FLOXIN] Allergy Unknown UNKNOWN Unverified 03/20/20 14:33 penicillin V Allergy Unknown Unverified 12/05/15 00:00 Penicillins [PENICILLINS] Allergy Unknown UNKNOWN Unverified 03/20/20 14:33 sertraline [Zoloft] Allergy Unknown Verified 12/05/15 00:00 Sulfa (Sulfonamide Allergy Unknown Unverified 09/24/16 00:00 Antibiotics) sulfamethoxazole Allergy Unknown UNKNOWN Unverified 03/20/20 14:33 [From BACTRIM] trimethoprim [From BACTRIM] Allergy Unknown UNKNOWN Unverified 03/20/20 14:33 venlafaxine [VENLAFAXINE] Allergy Unknown UNKNOWN Unverified 03/20/20 14:33 From CIPRO Allergy Unknown UNKNOWN Uncoded 03/20/20 14:33 From EFFEXOR Allergy Unknown UNKNOWN Uncoded 03/20/20 14:33 From ZOLOFT Allergy Unknown UNKNOWN Uncoded 03/20/20 14:33 Plan I have reviewed the history and physical and performed a pertinent physical examination on my patient. No changes have occurred unless specified.
--- NOTE | 2021-03-09 14:25 | PM.EVENT ---
Event Note Date of Service: 03/09/21 Event Note: GI Consult-Full note dictated--case reviewed with RN Imp: Esophageal obstruction due to ? food impaction. Patient is able to swallow without aspiration symptoms, but then promptly regurgitates the water with bits of food in it. Rec: EGD with MAC today. Keep NPO. D/W son, Garry, in detail. Full consent has been obtained from him for this, including risks of bleeding and perforation. Thanks
--- NOTE | 2021-03-09 15:12 | HO.ANESPROP2 ---
FORMERLY [facility] Active Problems Active Problems: All Active Problems (Updated 03/09/21 @ 09:54 by Susan Lundberg NP) E-coli UTI (Acute) Acute encephalopathy (Acute) Aspiration of food (Acute) Chest pain (Acute) Altered mental status (Acute) Acute UTI (Acute) Pneumonia (Acute) Past Medical History Medical History Anxiety Bipolar 1 disorder CKD (chronic kidney disease) COPD (chronic obstructive pulmonary disease) Depression Difficulty in walking Gastro-esophageal reflux History of COVID-19 Hypertension Hypothyroidism Osteoarthritis Paroxysmal atrial fibrillation Polyneuropathy Type 2 diabetes mellitus Vitamin B12 deficiency 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 If so, by whom?: No Do you feel safe in your current relationship?: No Current Relationship Is there a partner from a previous relationship who is making you feel unsafe now?: No Are you made to feel afraid or neglected: No Advance Directives: No Advance Directives Information Provided: No Do you have thoughts of harming others: None Do you have a plan to hurt others: No Plan Recently lost weight without trying: Unsure Nutrition Risks: On aspiration precautions Patient : No : No Poor oral hygiene: No Meds Allergies Allergy/AdvReac Type Severity Reaction Status Date / Time ciprofloxacin [From CIPRO] Allergy Unknown UNKNOWN Unverified 03/20/20 14:33 clarithromycin [From Biaxin] Allergy Unknown UNKNOWN Unverified 03/20/20 14:33 Effexor Allergy Unknown Unverified 12/05/15 00:00 Floxin Otic Allergy Unknown Unverified 12/05/15 00:00 levofloxacin [From LEVAQUIN] Allergy Unknown UNKNOWN Unverified 03/20/20 14:33 loratadine [From CLARITIN] Allergy Unknown UNKNOWN Unverified 03/20/20 14:33 ofloxacin [From FLOXIN] Allergy Unknown UNKNOWN Unverified 03/20/20 14:33 penicillin V Allergy Unknown Unverified 12/05/15 00:00 Penicillins [PENICILLINS] Allergy Unknown UNKNOWN Unverified 03/20/20 14:33 sertraline [Zoloft] Allergy Unknown Verified 12/05/15 00:00 Sulfa (Sulfonamide Allergy Unknown Unverified 09/24/16 00:00 Antibiotics) sulfamethoxazole Allergy Unknown UNKNOWN Unverified 03/20/20 14:33 [From BACTRIM] trimethoprim [From BACTRIM] Allergy Unknown UNKNOWN Unverified 03/20/20 14:33 venlafaxine [VENLAFAXINE] Allergy Unknown UNKNOWN Unverified 03/20/20 14:33 From CIPRO Allergy Unknown UNKNOWN Uncoded 03/20/20 14:33 From EFFEXOR Allergy Unknown UNKNOWN Uncoded 03/20/20 14:33 From ZOLOFT Allergy Unknown UNKNOWN Uncoded 03/20/20 14:33 Active Medications: Current Medications Generic Name Dose Route Start Last Admin Trade Name Freq PRN Reason Stop Dose Admin Acetaminophen 650 mg 03/08/21 15:55 03/09/21 00:00 Acetaminophen 325 Mg Tablet PO 650 mg Q6H PRN Administration Pain, Mild (Pain Scale 1-3) Benztropine Mesylate 1 mg 03/09/21 09:00 03/09/21 10:06 Benztropine Mesylate 1 Mg Tablet PO Not Given BID JINA Clonazepam 0.25 mg 03/09/21 09:00 Clonazepam 0.5 Mg Tablet PO Q12H PRN Anxiety Clonazepam 0.5 mg 03/09/21 21:00 Clonazepam 0.5 Mg Tablet PO BEDTIME JINA Cyanocobalamin 200 mcg 03/09/21 09:00 03/09/21 10:06 Cyanocobalamin (Vitamin B-12) 100 Mcg Tablet PO Not Given DAILY JINA Dextrose 25 gm 03/08/21 16:00 Dextrose 50 % 25 Gm/50 Ml Vial IVPUSH Q15M PRN per Hypoglycemia Standing Ord. Protocol Enalapril Maleate 5 mg 03/09/21 09:00 03/09/21 10:06 Enalapril Maleate 5 Mg Tablet PO Not Given DAILY JINA Protocol Fentanyl 12 mcg 03/09/21 09:00 03/09/21 10:56 Fentanyl 12 Mcg Patch.[id number] TRANSDERMA 12 mcg Q3D JINA Administration Fluoxetine HCl 10 mg 03/09/21 09:00 03/09/21 10:06 Fluoxetine Hcl 10 Mg Capsule PO Not Given DAILY JINA Fluoxetine HCl 40 mg 03/09/21 09:00 03/09/21 10:06 Fluoxetine Hcl 20 Mg Capsule PO Not Given DAILY JINA Gabapentin 400 mg 03/09/21 09:00 03/09/21 10:07 Gabapentin 400 Mg Capsule PO Not Given DAILY JINA Gabapentin 600 mg 03/09/21 09:00 03/09/21 10:07 Gabapentin 600 Mg Tablet PO Not Given BID JINA Glucose 15 gm 03/08/21 16:00 Glucose Gel 15 Gm Gel..Gram. PO Q15M PRN per Hypoglycemia Standing Ord. Protocol Heparin Sodium (Porcine) 5,000 unit 03/08/21 17:00 03/09/21 04:24 Heparin Sodium,Porcine 5,000 Unit/Ml Vial SUBCUT 5,000 unit Q12H JINA Administration Ceftriaxone Sodium 1 gm/ 50 mls @ 100 mls/hr 03/08/21 20:00 03/08/21 20:37 Sodium Chloride IV Infused Q24H JINA Infusion Azithromycin 500 mg/ Sodium 250 mls @ 125 mls/hr 03/08/21 16:00 03/08/21 19:50 Chloride IV Infused Q24H JINA Infusion Insulin Human Lispro 0 unit 03/08/21 16:30 03/09/21 12:57 Insulin Lispro 100 Unit/Ml 3 Ml Vial SUBCUT Not Given QIDACHS [facility] Protocol Levothyroxine Sodium 75 mcg 03/09/21 09:00 03/09/21 10:07 Levothyroxine Sodium 75 Mcg Tablet PO Not Given DAILY [facility] Lidocaine 1 patch 03/09/21 09:00 03/09/21 07:42 Lidocaine 4 % Patch Adh..Patch TRANSDERMA 1 patch DAILY JINA Administration Protocol Loratadine 10 mg 03/09/21 09:00 03/09/21 10:07 Loratadine 10 Mg Tablet PO Not Given DAILY JINA Metoprolol Tartrate 2.5 mg 03/09/21 09:56 Metoprolol Tartrate 5 Mg/5 Ml Vial IVPUSH Q6H PRN htn, tachycardia Nitroglycerin 0.4 mg 03/09/21 08:07 03/09/21 08:28 Nitroglycerin 0.4 Mg Tab.Subl SUBLINGUAL 0.4 mg Q5MX3 PRN Administration Chest Pain Ondansetron HCl 4 mg 03/08/21 15:55 Ondansetron Hcl 4 Mg/2 Ml Vial IVPUSH Q8H PRN Nausea and Vomiting Oxycodone HCl 5 mg 03/09/21 05:07 03/09/21 05:38 Oxycodone Hcl Immed Release 5 Mg Tablet PO 5 mg Q6H PRN Administration Breakthrough Pain Sodium Chloride 3 ml 03/08/21 16:00 03/09/21 07:57 0.9 % Sodium Chloride Flush 3 Ml Syringe IVFLUSH 3 ml QSNDFT [facility] Administration Sodium Chloride 3 ml 03/09/21 00:00 03/09/21 07:58 0.9 % Sodium Chloride Flush 3 Ml Syringe IVFLUSH Not Given QSHIFT [facility] Ziprasidone 20 mg 03/09/21 09:00 03/09/21 10:07 Ziprasidone 20 Mg Capsule PO Not Given BID [facility] Home Medications Medication Instructions Recorded Confirmed Last Taken Type benztropine 1 mg tablet 1 tab PO BID 03/08/21 03/08/21 Unknown History cetirizine 10 mg tablet 10 mg PO DAILY 03/08/21 03/08/21 Unknown History clonazepam 0.25 mg disintegrating 0.25 mg PO Q12H PRN 03/08/21 03/08/21 Unknown History tablet clonazepam 0.5 mg tablet 1 tab PO BEDTIME 03/08/21 03/08/21 Unknown History cyanocobalamin (vitamin B-12) 100 200 mcg PO DAILY 03/08/21 03/08/21 Unknown History mcg tablet enalapril maleate 5 mg tablet 5 mg PO DAILY 03/08/21 03/08/21 Unknown History (Vasotec) fentanyl 12 mcg/hr transdermal 1 patch TOPICAL Q3D 03/08/21 03/08/21 Unknown History patch fluoxetine 10 mg capsule 1 cap PO DAILY 03/08/21 03/08/21 Unknown History fluoxetine 20 mg capsule 2 cap PO QAM 03/08/21 03/08/21 Unknown History gabapentin 400 mg capsule 1 cap PO DAILY 03/08/21 03/08/21 Unknown History gabapentin 600 mg tablet 1 tab PO BID 03/08/21 03/08/21 Unknown History levothyroxine 75 mcg tablet 1 tab PO DAILY 03/08/21 03/08/21 Unknown History nitrofurantoin 100 mg PO BID 03/08/21 03/08/21 Unknown History monohydrate/macrocrystals 100 mg capsule (Macrobid) nitroglycerin 0.4 mg sublingual 0.4 mg SUBLINGUAL DIRECTED PRN 03/08/21 03/08/21 Unknown History tablet oxycodone 5 mg tablet 1 tab PO QID PRN 03/08/21 03/08/21 Unknown History pioglitazone 15 mg tablet (Actos) 15 mg PO DAILY 03/08/21 03/08/21 Unknown History ziprasidone HCl 20 mg capsule 20 mg PO BID 03/08/21 03/08/21 Unknown History (Abilio) Exam Exam Date and Time: March 09, 2021 151 Height,Weight and Vital Signs: Height 5 ft 4 in Weight 98.4 kg Last Vital Signs Temp 98.6 F 03/09/21 11:11 Pulse 102 H 03/09/21 11:11 Resp 22 H 03/09/21 11:11 BP 129/82 03/09/21 11:11 Pulse Ox 95 03/09/21 11:11 Oxygen Flow Rate 3 03/08/21 11:54 Pertinent Lab Results Pertinent Lab Results: Laboratory Tests 03/08/21 03/08/21 03/08/21 11:56 12:33 12:33 WBC 14.4 H RBC 3.40 L Hgb 11.4 L Hct 35.0 L MCV 102.9 H MCH 33.5 H MCHC 32.6 RDW 14.2 Plt Count 304 MPV 10.0 Immature Gran % (Auto) 0.4 Neut % (Auto) 86.9 H Lymph % (Auto) 4.6 L [place] % (Auto) 6.7 Eos % (Auto) 1.3 Baso % (Auto) 0.1 Lymph # (Auto) 0.7 L [place] # (Auto) 1.0 Eos # (Auto) 0.2 Baso # (Auto) 0.0 Abs Immat Gran (auto) 0.06 H Absolute Neuts (auto) 12.5 H Absolute Nucleated RBC 0.000 Nucleated RBC % (auto) 0.0 PT INR APTT Sodium 137 Potassium 4.6 Chloride 105 Carbon Dioxide 24 Anion Gap 13 BUN 27 H Creatinine 1.34 Estim Creat Clear Calc 40.0 Estimated GFR 38 POC Glucose 260 H Random Glucose 235 H D Lactic Acid Calcium 9.0 D Total Bilirubin 0.7 AST 12 ALT 15 Alkaline Phosphatase 73 Troponin I High Sens B-Natriuretic Peptide Total Protein 6.3 L Albumin 3.7 Urine Color Urine Appearance Urine pH Ur Specific [place] Urine Protein Urine Glucose (UA) Urine Ketones Urine Blood Urine Nitrite Ur Leukocyte Esterase Urine RBC Urine WBC Ur Squamous Epith Cells Urine Bacteria Urine Mucus COVID-19 (IVANNA) COVID-19 Clin Com 03/08/21 03/08/21 03/08/21 12:33 12:33 12:33 WBC RBC Hgb Hct MCV MCH MCHC RDW Plt Count MPV Immature Gran % (Auto) Neut % (Auto) Lymph % (Auto) [place] % (Auto) Eos % (Auto) Baso % (Auto) Lymph # (Auto) [place] # (Auto) Eos # (Auto) Baso # (Auto) Abs Immat Gran (auto) Absolute Neuts (auto) Absolute Nucleated RBC Nucleated RBC % (auto) PT INR APTT Sodium Potassium Chloride Carbon Dioxide Anion Gap BUN Creatinine Estim Creat Clear Calc Estimated GFR POC Glucose Random Glucose Lactic Acid 1.2 Calcium Total Bilirubin AST ALT Alkaline Phosphatase Troponin I High Sens 5.1 B-Natriuretic Peptide 42 Total Protein Albumin Urine Color Urine Appearance Urine pH Ur Specific [place] Urine Protein Urine Glucose (UA) Urine Ketones Urine Blood Urine Nitrite Ur Leukocyte Esterase Urine RBC Urine WBC Ur Squamous Epith Cells Urine Bacteria Urine Mucus COVID-19 (IVANNA) Negative COVID-19 Clin Com See Note 03/08/21 03/08/21 03/08/21 12:33 14:15 17:14 WBC RBC Hgb Hct MCV MCH MCHC RDW Plt Count MPV Immature Gran % (Auto) Neut % (Auto) Lymph % (Auto) [place] % (Auto) Eos % (Auto) Baso % (Auto) Lymph # (Auto) [place] # (Auto) Eos # (Auto) Baso # (Auto) Abs Immat Gran (auto) Absolute Neuts (auto) Absolute Nucleated RBC Nucleated RBC % (auto) PT 13.4 H INR 1.2 H APTT 41.1 H Sodium Potassium Chloride Carbon Dioxide Anion Gap BUN Creatinine Estim Creat Clear Calc Estimated GFR POC Glucose 132 H Random Glucose Lactic Acid Calcium Total Bilirubin AST ALT Alkaline Phosphatase Troponin I High Sens B-Natriuretic Peptide Total Protein Albumin Urine Color YELLOW Urine Appearance CLEAR Urine pH 6.0 Ur Specific [place] <= 1.005 Urine Protein NEG Urine Glucose (UA) NEG Urine Ketones NEG Urine Blood NEG Urine Nitrite NEG Ur Leukocyte Esterase 1+ H Urine RBC 0-2 Urine WBC 10-14 H Ur Squamous Epith Cells 1+ Urine Bacteria NONE Urine Mucus 1+ COVID-19 (IVANNA) COVID-19 Clin Com 03/08/21 03/09/21 03/09/21 21:15 00:39 04:26 WBC 10.3 RBC 3.15 L Hgb 10.4 L Hct 32.3 L MCV 102.5 H MCH 33.0 MCHC 32.2 RDW 14.1 Plt Count 283 MPV 10.5 Immature Gran % (Auto) 0.4 Neut % (Auto) 73.0 Lymph % (Auto) 13.3 L [place] % (Auto) 10.0 Eos % (Auto) 3.0 Baso % (Auto) 0.3 Lymph # (Auto) 1.4 [place] # (Auto) 1.0 Eos # (Auto) 0.3 Baso # (Auto) 0.0 Abs Immat Gran (auto) 0.04 H Absolute Neuts (auto) 7.5 Absolute Nucleated RBC 0.000 Nucleated RBC % (auto) 0.0 PT INR APTT Sodium Potassium Chloride Carbon Dioxide Anion Gap BUN Creatinine Estim Creat Clear Calc Estimated GFR POC Glucose 259 H 112 Random Glucose Lactic Acid Calcium Total Bilirubin AST ALT Alkaline Phosphatase Troponin I High Sens B-Natriuretic Peptide Total Protein Albumin Urine Color Urine Appearance Urine pH Ur Specific [place] Urine Protein Urine Glucose (UA) Urine Ketones Urine Blood Urine Nitrite Ur Leukocyte Esterase Urine RBC Urine WBC Ur Squamous Epith Cells Urine Bacteria Urine Mucus COVID-19 (IVANNA) COVID-19 Clin Com 03/09/21 03/09/21 03/09/21 04:26 07:08 08:32 WBC RBC Hgb Hct MCV MCH MCHC RDW Plt Count MPV Immature Gran % (Auto) Neut % (Auto) Lymph % (Auto) [place] % (Auto) Eos % (Auto) Baso % (Auto) Lymph # (Auto) [place] # (Auto) Eos # (Auto) Baso # (Auto) Abs Immat Gran (auto) Absolute Neuts (auto) Absolute Nucleated RBC Nucleated RBC % (auto) PT INR APTT Sodium 137 Potassium 4.6 Chloride 107 Carbon Dioxide 23 Anion Gap 12 BUN 22 H Creatinine 1.01 Estim Creat Clear Calc 53.1 Estimated GFR 53 POC Glucose 154 H Random Glucose 178 H Lactic Acid Calcium 8.8 Total Bilirubin AST ALT Alkaline Phosphatase Troponin I High Sens < 3.5 B-Natriuretic Peptide Total Protein Albumin Urine Color Urine Appearance Urine pH Ur Specific [place] Urine Protein Urine Glucose (UA) Urine Ketones Urine Blood Urine Nitrite Ur Leukocyte Esterase Urine RBC Urine WBC Ur Squamous Epith Cells Urine Bacteria Urine Mucus COVID-19 (IVANNA) COVID-19 Clin Com 03/09/21 11:11 WBC RBC Hgb Hct MCV MCH MCHC RDW Plt Count MPV Immature Gran % (Auto) Neut % (Auto) Lymph % (Auto) [place] % (Auto) Eos % (Auto) Baso % (Auto) Lymph # (Auto) [place] # (Auto) Eos # (Auto) Baso # (Auto) Abs Immat Gran (auto) Absolute Neuts (auto) Absolute Nucleated RBC Nucleated RBC % (auto) PT INR APTT Sodium Potassium Chloride Carbon Dioxide Anion Gap BUN Creatinine Estim Creat Clear Calc Estimated GFR POC Glucose 204 H Random Glucose Lactic Acid Calcium Total Bilirubin AST ALT Alkaline Phosphatase Troponin I High Sens B-Natriuretic Peptide Total Protein Albumin Urine Color Urine Appearance Urine pH Ur Specific [place] Urine Protein Urine Glucose (UA) Urine Ketones Urine Blood Urine Nitrite Ur Leukocyte Esterase Urine RBC Urine WBC Ur Squamous Epith Cells Urine Bacteria Urine Mucus COVID-19 (IVANNA) COVID-19 Clin Com Airway Mallampati Class: IV TM Dist: >3cm Neck ROM: Full Denture: Upper and Lower Heart: tachycardic Lungs: BS Assessment and Plan Final Anesthetic Review Family History of Problems with Anesthesia: No History of Problems with Anesthesia: No
--- NOTE | 2021-03-09 15:59 | MHC.CM.PN ---
PT IS A LTC RESIDENT OF [facility]. CM REQUESTED A COPY OF PTS HCP FROM FACILITY HOWEVER IT HAS NOT BEEN RECEIVED OF YET. CM CONTACTED PTS SON, LYNSEY CHRISTIAN ([phone]) WHO REPORTS HE DOES NOT THINK HE IS THE PTS HCP AND SAYS HE KNOWS NOTHING ABOUT IT . LYNSEY WAS ABLE TO OFFER LITTLE INFORMATION ABOUT THE PT BUT DID CONFIRM HER PLACE OF RESIDENCE. PTS MEDICARE RIGHTS WERE EXPLAINED AND A COPY WILL BE LEFT AT HER BEDSIDE. DC PLAN IS RETURN TO [facility] VIA S
--- NOTE | 2021-03-09 16:50 | P.BOP_ITS ---
Brief Operative Note Date of Service: 03/09/21 Pre-op diagnosis: Dysphagia Post-op diagnosis: other (Esophageal obstruction due to food, probable esophageal motility disorder) Procedure: EGD with removal of esophageal foreign body(food) Surgeon: Suman Peters Anesthesia: MAC Was an Edge Trimming Machine Operator used for this Procedure?: No Estimated blood loss (mL): 0 Pathology: none sent Condition: stable Disposition: PACU
--- NOTE | 2021-03-09 16:51 | P.EN_ITS ---
Event Note Date of Service: 03/09/21 Event Note: GI-EGD-Full note dictated Findings: 1. Esophagus full of food--? eggs--all pushed into stomach 2. EG Junction was patent--no stricture, no mass 3. Esophagus appeared somewhat tortuous, dilated, and with only minimal peristalsis--? c/w Achalasia 4. Stomach and duodenum WNL Plan: Keep on Full liquid diet senior care, IV PPI for now and then eventual po PPI, aspiration precautions, Barium swallow in AM. If she continues with swallowing difficulties and/or aspiration she may need a PEG for nutritional support. D/W son, Garry. Thanks.
--- NOTE | 2021-03-09 17:07 | PC.NURSE ---
dr najera at bedside speaking to pt
[2021-03-09 17:40] LABS: Glucose, Whole Blood 225 mg/dL (60-115)
[2021-03-09] MEDS: Azithromycin 500 MG in 0.9 % Sodium Chloride 250 ML 125 MG IV (17:55)
[2021-03-09] MEDS: Pantoprazole Sodium 40 MG/10 ML VIAL IVPUSH (17:58)
--- NOTE | 2021-03-09 18:32 | PC.NURSE ---
Patient unable to swallow while in the middle of eating breakfast. Obvious distress noted. (+) diaphoresis. Patient c/o CP. Provider notifed. EKG ordered and done. No cardiac changes except fequent PACs. Evident dysphagia, unable to pass liquid without it regurgitating back with scrambled egg particles. METAL MOLD DRESSER at bedside for swallow eval. No improvement. Patient kept NPO, Dr. Peters came to do GI eval. Same response noted when MD had patient swallow water. Patient taken to OR for upper endo. Large pocket of breakfast food noted and passed through into stomach during procedure. Patient returned with no desire to eat at this time. Blood sugar 225 not covered d/t not eating. Afternoon scheduled meds as ordered. PRN Tylenol given for c/o back pain, 0.25mg Klonopin given for mild anxiety. Resting in bed with eyes closed.
[2021-03-09 20:20] LABS: Glucose, Whole Blood 209 mg/dL (60-115)
--- NOTE | 2021-03-09 20:25 | HO.POSTANES ---
Post Anesthesia Evaluation Post Anesthesia Evaluation Vital Signs: Vital Signs Temp Pulse Resp BP Pulse Ox 03/09/21 19:00 98.1 F 105 H 18 122/99 H 92 03/09/21 18:00 98.1 F 102 H 20 195/84 H 92 03/09/21 17:17 97.9 F 107 H 20 143/85 H 92 03/09/21 17:16 97.6 F 108 H 18 133/69 98 03/09/21 17:01 97.1 F 100 18 130/59 L 97 03/09/21 16:56 97.1 F 101 H 18 133/67 96 03/09/21 16:51 97 F 101 H 16 134/71 96 03/09/21 16:46 97.6 F 106 H 16 140/68 H 96 03/09/21 15:32 97.9 F 115 H 18 173/63 H 94 03/09/21 11:11 98.6 F 102 H 22 H 129/82 95 03/09/21 08:28 105 H 153/87 H Anesthesia: General Mental Status: Awake Pain Control: Satisfactory Nausea/Vomiting: None Hydration: Adequate Anesthesia-Related Issues: No Anes. Related Issues
[2021-03-09] MEDS: cefTRIAXone sodium 1 GM in 0.9 % Sodium Chloride 50 ML IV (20:57)
[2021-03-09] MEDS: clonazePAM 0.5 MG TABLET PO (21:03)
[2021-03-09] MEDS: Gabapentin 600 MG TABLET PO (21:03)
[2021-03-09] MEDS: Benztropine Mesylate 1 MG TABLET PO (21:03)
[2021-03-09] MEDS: Ziprasidone 20 MG CAPSULE PO (21:03)
[2021-03-10] VITALS (7 sets, daily range): BP systolic 105–133; BP diastolic 56–68; PULSE 64–88; RESP 18–22; TEMP 35.5–37.1; O2SAT 96–100
[2021-03-10] MEDS: Pantoprazole Sodium 40 MG/10 ML VIAL IVPUSH ×2 (06:19→16:01)
[2021-03-10 07:03] LABS: Hematocrit 31.7 % (37-47); Hemoglobin 10.3 g/dl (12.0-16.0); Mean Corpuscular HGB Conc 32.5 g/dl (31.0-35.0); Mean Corpuscular Hemoglobin 33.4 pg (27.0-33.0); Mean Corpuscular Volume 102.9 fL (80-98); Mean Platelet Volume 10.1 fL (9.4-12.3); Platelet Count 280 X10*3/uL (160-400); Red Blood Count 3.08 X10*6/uL (4.20-5.50); Red Cell Distribution Width 13.9 % (11.0-16.0); White Blood Count 7.4 X10*3/uL (4.8-10.8)
[2021-03-10 07:17] LABS: Anion Gap 10 (12-20); Blood Urea Nitrogen 15 mg/dL (9-16); Carbon Dioxide 25 mmol/L (22-29); Chloride 109 mmol/L (96-108); Creatinine Clr Calc Pharmacy 65.5; Estimated Glomerular Filt Rate > 60; Glucose Random 121 mg/dL (60-115); Potassium 4.2 mmol/L (3.3-5.1); Sodium 140 mmol/L (135-145)
[2021-03-10 07:26] LABS: Glucose, Whole Blood 123 mg/dL (60-115)
[2021-03-10] MEDS: 0.9 % Sodium Chloride Flush 3 ML SYRINGE IVFLUSH ×2 (08:30→16:01)
[2021-03-10] MEDS: Lidocaine 4 % Patch ADH..PATCH 1 PATCH TRANSDERMA (08:36)
--- NOTE | 2021-03-10 08:46 | PC.NURSE ---
to Barium Swallow procedure with transport on stretcher
[2021-03-10 11:21] LABS: Glucose, Whole Blood 182 mg/dL (60-115)
--- NOTE | 2021-03-10 11:56 | MHC.SLORD ---
Speech Language Pathology Order Status: JIGGER ARTISAN spoke with RN. Patient had EGD which showed scrambled eggs impacted in esophagus. She was away this morning for barium swallow study. Recommend continue NPO at this time. ST intervention pending results of barium swallow study and GI recommendations RE: esophageal dysphagia.
--- NOTE | 2021-03-10 12:20 | PM.IMPN ---
Progress Note: A&P Assessment and Plan: 75 year old women admitted with encephalopathy secondary to UTI and CAP ? Aspiration pneumonia difficulty swallowing Failed swallow evaluation, egd for food impaction. barium swallow today, may need PEG tube Chest pain. No ischemic changes on EKG neg troponin Frequent belching may be secondary to aspiration Encephalopathy. Secondary to infection follow mental status CAP Rocephin, azithromycin Follow cx supplemental oxygen as needed Tremor Chronic Ecoli UTI Rocephin Diabetes ss, ada diet Leukocytosis secondary to infection Mental health continue home medications DVT prophylaxis with heparin Attending Dr. Melendez <Susan Lundberg NP - Last Filed: 03/10/21 12:23> Subjective Subjective Date of Service: 03/10/21 <Susan Lundberg NP - Last Filed: 03/10/21 12:23> 03/18/21 <Royer Melendez MD - Last Filed: 03/18/21 13:33> Review of Systems Follow up food impaction barium swallow today still with confusion <Susan Lundberg NP - Last Filed: 03/10/21 12:23> Physical Exam Vital Signs: Vital Signs: Last Vital Signs Temp 96 F L 03/10/21 11:09 Pulse 66 03/10/21 11:09 Resp 20 03/10/21 11:09 BP 123/65 03/10/21 11:09 Pulse Ox 99 03/10/21 11:09 Oxygen Flow Rate 3 03/08/21 11:54 Body Mass Index 37.2 <Susan Lundberg NP - Last Filed: 03/10/21 12:23> Appearing in no acute distress lung sounds are clear to auscultation heart regular rate rhythm, clear S1, S2 positive bowel sounds, abdomen is soft, nontender neuro patient is alert, confused <Susan Lundberg NP - Last Filed: 03/10/21 12:23> Objective Data Current Medications Generic Name Dose Route Start Last Admin Trade Name Freq PRN Reason Stop Dose Admin Acetaminophen 650 mg 03/08/21 15:55 03/09/21 00:00 Acetaminophen 325 Mg Tablet PO 650 mg Q6H PRN Administration Pain, Mild (Pain Scale 1-3) Acetaminophen 650 mg 03/09/21 16:17 Acetaminophen 325 Mg Tablet PO ONCE PRN Pain, Mild (Pain Scale 1-3) Benztropine Mesylate 1 mg 03/09/21 09:00 03/10/21 08:33 Benztropine Mesylate 1 Mg Tablet PO Not Given BID JINA Clonazepam 0.25 mg 03/09/21 09:00 Clonazepam 0.5 Mg Tablet PO Q12H PRN Anxiety Clonazepam 0.5 mg 03/09/21 21:00 03/09/21 21:03 Clonazepam 0.5 Mg Tablet PO 0.5 mg BEDTIME JINA Administration Cyanocobalamin 200 mcg 03/09/21 09:00 03/10/21 08:33 Cyanocobalamin (Vitamin B-12) 100 Mcg Tablet PO Not Given DAILY JINA Dextrose 25 gm 03/08/21 16:00 Dextrose 50 % 25 Gm/50 Ml Vial IVPUSH Q15M PRN per Hypoglycemia Standing Ord. Protocol Enalapril Maleate 5 mg 03/09/21 09:00 03/10/21 08:33 Enalapril Maleate 5 Mg Tablet PO Not Given DAILY [facility] Protocol Fentanyl 12 mcg 03/09/21 09:00 03/09/21 10:56 Fentanyl 12 Mcg Patch.Td72 TRANSDERMA 12 mcg Q3D JINA Administration Fentanyl 25 mcg 03/09/21 16:17 Fentanyl Citrate/Pf 100 Mcg/2 Ml Vial IVPUSH Q5M PRN Pain, Moderate (Pain Scale 4-6 Protocol Fluoxetine HCl 10 mg 03/09/21 09:00 03/10/21 08:34 Fluoxetine Hcl 10 Mg Capsule PO Not Given DAILY JINA Fluoxetine HCl 40 mg 03/09/21 09:00 03/10/21 08:34 Fluoxetine Hcl 20 Mg Capsule PO Not Given DAILY [facility] Gabapentin 400 mg 03/09/21 09:00 03/10/21 08:34 Gabapentin 400 Mg Capsule PO Not Given DAILY JINA Gabapentin 600 mg 03/09/21 09:00 03/10/21 08:34 Gabapentin 600 Mg Tablet PO Not Given BID JINA Glucose 15 gm 03/08/21 16:00 Glucose Gel 15 Gm Gel..Gram. PO Q15M PRN per Hypoglycemia Standing Ord. Protocol Heparin Sodium (Porcine) 5,000 unit 03/08/21 17:00 03/10/21 06:16 Heparin Sodium,Porcine 5,000 Unit/Ml Vial SUBCUT Not Given Q12H [facility] Ceftriaxone Sodium 1 gm/ 50 mls @ 100 mls/hr 03/08/21 20:00 03/09/21 21:41 Sodium Chloride IV Infused Q24H [facility] Infusion Azithromycin 500 mg/ Sodium 250 mls @ 125 mls/hr 03/08/21 16:00 03/09/21 21:14 Chloride IV Infused Q24H [facility] Infusion Insulin Human Lispro 0 unit 03/08/21 16:30 03/10/21 08:30 Insulin Lispro 100 Unit/Ml 3 Ml Vial SUBCUT Not Given QIDACHS [facility] Protocol Levothyroxine Sodium 75 mcg 03/09/21 09:00 03/10/21 08:34 Levothyroxine Sodium 75 Mcg Tablet PO Not Given DAILY JINA Lidocaine 1 patch 03/09/21 09:00 03/10/21 08:36 Lidocaine 4 % Patch Adh..Patch TRANSDERMA 1 patch DAILY JINA Administration Protocol Loratadine 10 mg 03/09/21 09:00 03/10/21 08:36 Loratadine 10 Mg Tablet PO Not Given DAILY JINA Metoprolol Tartrate 2.5 mg 03/09/21 09:56 Metoprolol Tartrate 5 Mg/5 Ml Vial IVPUSH Q6H PRN htn, tachycardia Nitroglycerin 0.4 mg 03/09/21 08:07 03/09/21 08:28 Nitroglycerin 0.4 Mg Tab.Subl SUBLINGUAL 0.4 mg Q5MX3 PRN Administration Chest Pain Ondansetron HCl 4 mg 03/08/21 15:55 Ondansetron Hcl 4 Mg/2 Ml Vial IVPUSH Q8H PRN Nausea and Vomiting Ondansetron HCl 4 mg 03/09/21 16:17 Ondansetron Hcl 4 Mg/2 Ml Vial IVPUSH ONCE PRN Nausea and Vomiting Oxycodone HCl 5 mg 03/09/21 05:07 03/09/21 05:38 Oxycodone Hcl Immed Release 5 Mg Tablet PO 5 mg Q6H PRN Administration Breakthrough Pain Pantoprazole Sodium 40 mg 03/09/21 16:49 03/10/21 06:19 Pantoprazole Sodium 40 Mg/10 Ml Vial IVPUSH 40 mg BID@0630,1630 JINA Administration Sodium Chloride 3 ml 03/08/21 16:00 03/10/21 08:30 0.9 % Sodium Chloride Flush 3 Ml Syringe IVFLUSH 3 ml QSHIFT JINA Administration Sodium Chloride 3 ml 03/09/21 00:00 03/10/21 08:32 0.9 % Sodium Chloride Flush 3 Ml Syringe IVFLUSH Not Given QSHIFT JINA Ziprasidone 20 mg 03/09/21 09:00 03/10/21 08:36 Ziprasidone 20 Mg Capsule PO Not Given BID JINA <Susan Lundberg NP - Last Filed: 03/10/21 12:23> Labs CBC & Chem 7: : 03/11/21 06:06 03/11/21 06:06 <Susan Lundberg NP - Last Filed: 03/10/21 12:23> Labs: Laboratory Results - last 24 hr 03/09/21 03/09/21 03/10/21 17:33 20:12 06:22 MCV 102.9 H MCH 33.4 H MCHC 32.5 RDW 13.9 Plt Count 280 MPV 10.1 Absolute Nucleated RBC 0.000 Nucleated RBC % (auto) 0.0 Anion Gap Estim Creat Clear Calc Estimated GFR POC Glucose 225 H 209 H Random Glucose Calcium 03/10/21 03/10/21 03/10/21 06:22 07:07 11:09 MCV MCH MCHC RDW Plt Count MPV Absolute Nucleated RBC Nucleated RBC % (auto) Anion Gap 10 L Estim Creat Clear Calc 65.5 Estimated GFR > 60 POC Glucose 123 H 182 H Random Glucose 121 H Calcium 9.0 <Susan Lundberg NP - Last Filed: 03/10/21 12:23> Microbiology Microbiology Results: Microbiology 03/08/21 12:41 Blood - Venous Blood Culture - Preliminary No growth after 24 hours. 03/08/21 12:33 Blood - Venous Blood Culture - Preliminary No growth after 24 hours. <Susan Lundberg NP - Last Filed: 03/10/21 12:23> Quality Stroke Does the patient have a stroke diagnosis?: No <Susan Lundberg NP - Last Filed: 03/10/21 12:23> VTE Prior VTE?: No <Susan Lundberg NP - Last Filed: 03/10/21 12:23> VTE Risk Level:: Medical - moderate - high <Susan Lundberg NP - Last Filed: 03/10/21 12:23> VTE Device Contraindication: Treatment Not Indicated <Susan Lundberg NP - Last Filed: 03/10/21 12:23> VTE Drug Contraindication: N/A - Med Ordered <Susan Lundberg NP - Last Filed: 03/10/21 12:23>
--- NOTE | 2021-03-10 12:36 | P.CDIC_ITS ---
CDI Concurrent Query Service Date: 03/10/21 Documentation Clarification: Please clarify if you are treating a proba ble/suspected/likely or confirmed: Toxic encephalopathy due to UTI/CAP Metabolic and/or toxic encephalopathy Acute encephalopathy Other, please specify if known or undetermined Provider Response: Other Other Diagnosis: Toxic/Metabolic Encephalopathy PLEASE DO NOT DELETE/MODIFY EXISTING CONTENT Additional information is needed in order to code to the highest accuracy and appropriate Severity of Illness (SOI). Please clarify the information noted below in your progress notes and discharge summary. Risk Factors/Clinical Indicators/Treatments Altered mental status, decreased mental status, found to have UTI. Encephalopathy 2nd to UTI and CAP. Follow mental status. WBC 14.4 Temp 100.3/100.7 RR 22 HR 114 Cefepime, Azithromycin, IV fluids. CDS: Leida Jessica CCS, CDIS Contact Number: [phone] Please Review the information above and exercise your independent professional judgment in responding to the query. If you concur, pleas document in the PROGRESS NOTES and DISCHARGE SUMMARY. If you do not agree with the query, please document in the query above. THIS QUERY IS PART OF THE PERMANENT MEDICAL RECORD
--- NOTE | 2021-03-10 12:42 | P.CDIC_ITS ---
CDI Concurrent Query Service Date: 03/10/21 Documentation Clarification: Please clarify if you are treating a proba ble/suspected/likely or confirmed: Sepsis treating Sepsis rule out Sepsis POA, resolved Other, please specify if known or undetermined Pneumonia Provider Response: Other Other Diagnosis: Pneumonia PLEASE DO NOT DELETE/MODIFY EXISTING CONTENT Additional information is needed in order to code to the highest accuracy and appropriate Severity of Illness (SOI). Please clarify the information noted below in your progress notes and discharge summary. Risk Factors/Clinical Indicators/Treatments ED: patient with altered mental status, found to have UTI. Temp 100.3/100.7 WBC 14.4 RR 22 HR 114 Started Sepsis bolus, initiated Sepsis workup. Cefepime, Azithromycin, IV fluids. patient normally on 2.3 liters oxygen now requires 4 liters. CDS: Leida Jessica CCS, CDIS Contact Number: [phone] Please Review the information above and exercise your independent professional judgment in responding to the query. If you concur, pleas document in the PROGRESS NOTES and DISCHARGE SUMMARY. If you do not agree with the query, please document in the query above. THIS QUERY IS PART OF THE PERMANENT MEDICAL RECORD
--- NOTE | 2021-03-10 13:03 | CONS_ITS ---
DATE OF SERVICE: 03/09/2021 REASON FOR CONSULTATION: Dysphagia. This has been obtained from the nursing staff, the medical record, and the patient's son, Garry. HISTORY OF PRESENT ILLNESS: The patient is a 75-year-old female with underlying medical issues including some apparent dementia, history of aspiration, and UTIs. She was admitted here yesterday with altered mental status and possible aspiration symptoms from the alf. Since being here, she was eating breakfast and was then noted to have some trouble swallowing. Since that time, she has been unable to really swallow saliva. At the bedside, with the nurse present, we gave her some water to drink. She was able to initiate the swallowing and did not have any coughing or choking with that. However, within a few seconds of swallowing the water, she would then promptly regurgitated. She also describes some discomfort in the lower sternal area. There is no clear history of previous trouble swallowing before. CURRENT MEDICATIONS: Include acetaminophen, IV Zithromax, Cogentin, IV ceftriaxone, clonazepam p.r.n., enalapril, fentanyl patch, fluoxetine, gabapentin, subcu heparin, insulin, levothyroxine, metoprolol p.r.n., Zofran p.r.n., oxycodone p.r.n., Geodon. PAST MEDICAL HISTORY: Anxiety. Bipolar disease. Renal insufficiency. COPD. Depression. Reflux. History of COVID. Hypertension. Hypothyroidism. Arthritis. Paroxysmal atrial fibrillation. Neuropathy. Right hip replacement. SOCIAL HISTORY: She lives at the alf. PHYSICAL EXAMINATION: GENERAL: The patient is an elderly alert, comfortable-appearing female. She is not oriented to year nor place. SKIN: Warm and dry. Nonjaundiced. HEENT: Anicteric sclerae. ABDOMEN: Soft, nondistended, nontender. LABORATORY DATA: White blood cell count 14.4 yesterday and 10.3 today. Hemoglobin 10.4, platelets 283,000. PT 13.4 with INR 1.2. Normal electrolytes. BUN 22, creatinine 1.0, total bilirubin 0.7. Liver profile normal. Albumin 3.7. CAT scan of the chest from last night shows bibasilar atelectasis and pneumonia bilaterally. Head CT is negative for any acute findings. IMPRESSION: Given the patient's clinical history of being unable to swallow saliva nor water at the present time and history of aspiration, this seems consistent with a probable esophageal obstruction in relation to food. Given the severity of her symptoms with being unable to swallow any liquids or saliva, I would recommend upper endoscopy today to try to relieve the obstruction and prevent further problems with aspiration and regurgitation. Full consent has been obtained from her son for this, including risks of bleeding and perforation. The procedure will be done with monitored anesthesia. We shall proceed with this as soon as we can arrange the procedure for later today. The patient's son, Garry, was comfortable with this plan. Thank you for this consultation. MD YOGESH Scruggs/FLAKITO / [id number] MTDCortney
[2021-03-10] MEDS: Insulin Lispro 100 UNIT/ML 3 ML VIAL SUBCUT ×2 (13:11→21:07)
--- NOTE | 2021-03-10 13:24 | OP_ITS ---
SURGEON: Suman Peters MD INDICATIONS: The patient presents for evaluation of dysphagia. Full consent has been obtained from the patient's son, Garry, including risks of bleeding and perforation. PREOPERATIVE DIAGNOSIS: Dysphagia. POSTOPERATIVE DIAGNOSIS: PROCEDURE PERFORMED: Esophagogastroduodenoscopy with removal of esophageal foreign body. ESTIMATED BLOOD LOSS: COMPLICATIONS: ANESTHESIA: GENERAL ASSISTANTS: SPECIMENS: POSTOPERATIVE DIAGNOSES: Dysphagia, esophageal obstruction secondary to food, small hiatal hernia, dilated and tortuous esophagus with diminished peristalsis consistent with possible achalasia. DESCRIPTION OF PROCEDURE: The patient was placed in the supine position.. The Olympus video gastroscope was passed in the posterior oropharynx and upper esophagus under direct vision. From the proximal esophagus to the distal esophagus was a large amount of old food, which was probably her breakfast consisting of scrambled eggs. The esophagogastric junction was at 38 cm. I was able to push all this food into the stomach with the scope and with the retrieval net. Once all the food was out of the esophagus, I was able to achieve a good visualization of the esophagus. There was no sign of any mucosal abnormalities. However, the esophagus appeared diffusely dilated, tortuous, and with significant diminished peristalsis. The esophagogastric junction at 38 cm was patent without any sign of stricture nor mass. The scope easily entered the stomach. There was a small hiatal hernia. The scope was advanced to pylorus. The duodenum was cannulated at the descending portion. The duodenum including the bulb appeared normal without mass or ulceration. The scope was withdrawn back to the stomach. The gastric antrum and body appeared normal with good peristalsis. The scope was retroflexed visualizing the proximal stomach carefully, which appeared normal, but visualization was limited due to all the old food sitting in the proximal stomach. There was no mass. The scope was straightened and withdrawn back into the esophagus. Again, the esophageal mucosa appeared normal and there was no sign of any esophageal stricture nor mass. I was then able to withdraw the scope from the patient. She tolerated the procedure well and was returned to recovery area in stable condition. IMPRESSION: 1. Esophageal obstruction secondary to food. 2. Small hiatal hernia. 3. Abnormal esophagus with what appeared to be a significantly diminished peristalsis and a dilated appearance consistent with probable achalasia. PLAN: The patient will be observed and started on IV PPI. I would maintain her only on a full liquid diet with nothing solid at all. I have ordered a barium swallow for tomorrow. 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 Given her condition, she may not be a candidate for esophageal motility studies or other workup or treatment if indeed we suspect she has achalasia. We may need to just keep her on a full liquid diet. If she continues to have significant problems with dysphagia and/or aspiration, we may need to keep her n.p.o. and place a G-tube for nutritional support. Further plans will be made depending upon her clinical course. This has all been discussed with her son, Garry. MD YOGESH Scruggs/FLAKITO / [id number] MTDD
[2021-03-10] MEDS: Azithromycin 500 MG in 0.9 % Sodium Chloride 250 ML 125 MG IV (16:03)
[2021-03-10 17:11] LABS: Glucose, Whole Blood 103 mg/dL (60-115)
[2021-03-10 20:58] LABS: Glucose, Whole Blood 216 mg/dL (60-115)
[2021-03-10] MEDS: cefTRIAXone sodium 1 GM in 0.9 % Sodium Chloride 50 ML IV (21:01)
[2021-03-10] MEDS: clonazePAM 0.5 MG TABLET PO (21:08)
[2021-03-10] MEDS: Ziprasidone 20 MG CAPSULE PO (21:08)
[2021-03-10] MEDS: Gabapentin 600 MG TABLET PO (21:08)
[2021-03-10] MEDS: Benztropine Mesylate 1 MG TABLET PO (21:08)
[2021-03-10] MEDS: oxyCODONE HCl Immed Release 5 MG TABLET PO (21:11)
--- NOTE | 2021-03-10 21:32 | P.PNGI_ITS ---
Subjective Subjective Date of Service: 03/10/21 Interval History: Case D/W nurse. Patient went for a Barium swallow today. There has been no N/V. Critical Care Time (minutes): 0 Physical Exam Vital Signs: Vital Signs: Last Vital Signs Temp 98.5 F 03/10/21 19:25 Pulse 88 03/10/21 19:25 Resp 18 03/10/21 19:25 BP 128/68 03/10/21 19:25 Pulse Ox 100 03/10/21 19:25 Oxygen Flow Rate 3 03/10/21 16:17 Body Mass Index 37.2 Const: Other: Alert, in NAD GI: Other: Soft, NT Objective Data Labs CBC & Chem 7: 03/10/21 06:22 03/10/21 06:22 Labs: Laboratory Results - last 24 hr 03/10/21 03/10/21 03/10/21 06:22 06:22 07:07 WBC 7.4 RBC 3.08 L Hgb 10.3 L Hct 31.7 L MCV 102.9 H MCH 33.4 H MCHC 32.5 RDW 13.9 Plt Count 280 MPV 10.1 Absolute Nucleated RBC 0.000 Nucleated RBC % (auto) 0.0 Sodium 140 Potassium 4.2 Chloride 109 H Carbon Dioxide 25 Anion Gap 10 L BUN 15 Creatinine 0.82 Estim Creat Clear Calc 65.5 Estimated GFR > 60 POC Glucose 123 H Random Glucose 121 H Calcium 9.0 03/10/21 03/10/21 03/10/21 11:09 17:07 20:55 WBC RBC Hgb Hct MCV MCH MCHC RDW Plt Count MPV Absolute Nucleated RBC Nucleated RBC % (auto) Sodium Potassium Chloride Carbon Dioxide Anion Gap BUN Creatinine Estim Creat Clear Calc Estimated GFR POC Glucose 182 H 103 216 H Random Glucose Calcium Microbiology Microbiology Results: Microbiology 03/08/21 12:41 Blood - Venous Blood Culture - Preliminary No growth after 48 hours. 03/08/21 12:33 Blood - Venous Blood Culture - Preliminary No growth after 48 hours. Procedures Date of Service Date of Service: 03/10/21 Progress Note: A&P Assessment and plan (1) Dysphagia: Start date: 03/09/21 Status: Acute (2) Esophageal obstruction due to food impaction: Start date: 03/10/21 Status: Acute (3) Achalasia, esophageal: Start date: 03/10/21 Status: Acute Assessment and Plan: Imp: Based on the upper endoscopy findings and the appearance of the Barium swallow it appears that she may very well have a component of Achalasia. There was no sign of aspiration on the Barium swallow. Of note, she was unable to swallow the Barium pill. Rec: Full liquid diet with supplements. F/U with Speech and Swallowing team. 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 Aspiration/GERD precautions. Given her overall condition, further workup with esophageal motility studies and then treatment of the presumed Achalasia may prove difficult. This would have to be done as an outpatient at [facility]. However, I shall discuss with her son to see if he wants to proceed with further w/u and treatment. If she can't maintain adequate nutrition then a PEG may be needed. Thanks Fall Risk Details Current Medications: Current Medications Generic Name Dose Route Start Last Admin Trade Name Freq PRN Reason Stop Dose Admin Acetaminophen 650 mg 03/08/21 15:55 03/09/21 00:00 Acetaminophen 325 Mg Tablet PO 650 mg Q6H PRN Administration Pain, Mild (Pain Scale 1-3) Acetaminophen 650 mg 03/09/21 16:17 Acetaminophen 325 Mg Tablet PO ONCE PRN Pain, Mild (Pain Scale 1-3) Benztropine Mesylate 1 mg 03/09/21 09:00 03/10/21 21:08 Benztropine Mesylate 1 Mg Tablet PO 1 mg BID JINA Administration Clonazepam 0.25 mg 03/09/21 09:00 Clonazepam 0.5 Mg Tablet PO Q12H PRN Anxiety Clonazepam 0.5 mg 03/09/21 21:00 03/10/21 21:08 Clonazepam 0.5 Mg Tablet PO 0.5 mg BEDTIME JINA Administration Cyanocobalamin 200 mcg 03/09/21 09:00 03/10/21 08:33 Cyanocobalamin (Vitamin B-12) 100 Mcg Tablet PO Not Given DAILY JINA Dextrose 25 gm 03/08/21 16:00 Dextrose 50 % 25 Gm/50 Ml Vial IVPUSH Q15M PRN per Hypoglycemia Standing Ord. Protocol Enalapril Maleate 5 mg 03/09/21 09:00 03/10/21 08:33 Enalapril Maleate 5 Mg Tablet PO Not Given DAILY JINA Protocol Fentanyl 12 mcg 03/09/21 09:00 03/09/21 10:56 Fentanyl 12 Mcg Patch.Td72 TRANSDERMA 12 mcg Q3D JINA Administration Fentanyl 25 mcg 03/09/21 16:17 Fentanyl Citrate/Pf 100 Mcg/2 Ml Vial IVPUSH Q5M PRN Pain, Moderate (Pain Scale 4-6 Protocol Fluoxetine HCl 10 mg 03/09/21 09:00 03/10/21 08:34 Fluoxetine Hcl 10 Mg Capsule PO Not Given DAILY JINA Fluoxetine HCl 40 mg 03/09/21 09:00 03/10/21 08:34 Fluoxetine Hcl 20 Mg Capsule PO Not Given DAILY JINA Gabapentin 400 mg 03/09/21 09:00 03/10/21 08:34 Gabapentin 400 Mg Capsule PO Not Given DAILY [facility] Gabapentin 600 mg 03/09/21 09:00 03/10/21 21:08 Gabapentin 600 Mg Tablet PO 600 mg BID JINA Administration Glucose 15 gm 03/08/21 16:00 Glucose Gel 15 Gm Gel..Gram. PO Q15M PRN per Hypoglycemia Standing Ord. Protocol Heparin Sodium (Porcine) 5,000 unit 03/08/21 17:00 03/10/21 06:16 Heparin Sodium,Porcine 5,000 Unit/Ml Vial SUBCUT Not Given Q12H JINA Ceftriaxone Sodium 1 gm/ 50 mls @ 100 mls/hr 03/08/21 20:00 03/10/21 21:01 Sodium Chloride IV 100 mls/hr Q24H JINA Administration Azithromycin 500 mg/ Sodium 250 mls @ 125 mls/hr 03/08/21 16:00 03/10/21 18:08 Chloride IV Infused Q24H [facility] Infusion Insulin Human Lispro 0 unit 03/08/21 16:30 03/10/21 21:07 Insulin Lispro 100 Unit/Ml 3 Ml Vial SUBCUT 4 unit QIDACHS JINA Administration Protocol Levothyroxine Sodium 75 mcg 03/09/21 09:00 03/10/21 08:34 Levothyroxine Sodium 75 Mcg Tablet PO Not Given DAILY [facility] Lidocaine 1 patch 03/09/21 09:00 03/10/21 08:36 Lidocaine 4 % Patch Adh..Patch TRANSDERMA 1 patch DAILY JINA Administration Protocol Loratadine 10 mg 03/09/21 09:00 03/10/21 08:36 Loratadine 10 Mg Tablet PO Not Given DAILY [facility] Metoprolol Tartrate 2.5 mg 03/09/21 09:56 Metoprolol Tartrate 5 Mg/5 Ml Vial IVPUSH Q6H PRN htn, tachycardia Nitroglycerin 0.4 mg 03/09/21 08:07 03/09/21 08:28 Nitroglycerin 0.4 Mg Tab.Subl SUBLINGUAL 0.4 mg Q5MX3 PRN Administration Chest Pain Ondansetron HCl 4 mg 03/08/21 15:55 Ondansetron Hcl 4 Mg/2 Ml Vial IVPUSH Q8H PRN Nausea and Vomiting Ondansetron HCl 4 mg 03/09/21 16:17 Ondansetron Hcl 4 Mg/2 Ml Vial IVPUSH ONCE PRN Nausea and Vomiting Oxycodone HCl 5 mg 03/09/21 05:07 03/10/21 21:11 Oxycodone Hcl Immed Release 5 Mg Tablet PO 5 mg Q6H PRN Administration Breakthrough Pain Pantoprazole Sodium 40 mg 03/09/21 16:49 03/10/21 16:01 Pantoprazole Sodium 40 Mg/10 Ml Vial IVPUSH 40 mg BID@0630,1630 JINA Administration Sodium Chloride 3 ml 03/08/21 16:00 03/10/21 16:01 0.9 % Sodium Chloride Flush 3 Ml Syringe IVFLUSH 3 ml QSHIFT JINA Administration Sodium Chloride 3 ml 03/09/21 00:00 03/10/21 16:02 0.9 % Sodium Chloride Flush 3 Ml Syringe IVFLUSH Not Given QSHIFT JINA Ziprasidone 20 mg 03/09/21 09:00 03/10/21 21:08 Ziprasidone 20 Mg Capsule PO 20 mg BID JINA Administration Time Spent With Patient Time: Total time spent is greater than 50% in coordination of care (as documented) at patient's floor/unit and/or counseling patient: Time with patient: 15 - 24 minutes Quality Stroke Does the patient have a stroke diagnosis?: No VTE Prior VTE?: No VTE Risk Level:: Medical - moderate - high VTE Device Contraindication: Treatment Not Indicated VTE Drug Contraindication: N/A - Med Ordered
[2021-03-11] VITALS (7 sets, daily range): BP systolic 102–131; BP diastolic 50–78; PULSE 71–80; RESP 16–22; TEMP 35.9–36.8; O2SAT 96–99; BMI 37.2
[2021-03-11] MEDS: 0.9 % Sodium Chloride Flush 3 ML SYRINGE IVFLUSH ×7 (00:47→22:44)
[2021-03-11] MEDS: Pantoprazole Sodium 40 MG/10 ML VIAL IVPUSH ×2 (05:32→16:51)
[2021-03-11 07:17] LABS: Hematocrit 31.8 % (37-47); Hemoglobin 10.2 g/dl (12.0-16.0); Mean Corpuscular HGB Conc 32.1 g/dl (31.0-35.0); Mean Corpuscular Hemoglobin 32.8 pg (27.0-33.0); Mean Corpuscular Volume 102.3 fL (80-98); Mean Platelet Volume 10.5 fL (9.4-12.3); Platelet Count 287 X10*3/uL (160-400); Red Blood Count 3.11 X10*6/uL (4.20-5.50); Red Cell Distribution Width 13.9 % (11.0-16.0); White Blood Count 6.2 X10*3/uL (4.8-10.8)
[2021-03-11 07:20] LABS: Glucose, Whole Blood 120 mg/dL (60-115)
[2021-03-11 07:40] LABS: Anion Gap 14 (12-20); Blood Urea Nitrogen 12 mg/dL (9-16); Calcium 9.1 mg/dL (8.4-10.2); Carbon Dioxide 25 mmol/L (22-29); Chloride 107 mmol/L (96-108); Creatinine Clr Calc Pharmacy 70.6; Estimated Glomerular Filt Rate > 60; Glucose Random 116 mg/dL (60-115); Potassium 4.8 mmol/L (3.3-5.1); Sodium 141 mmol/L (135-145)
[2021-03-11] MEDS: Lidocaine 4 % Patch ADH..PATCH 1 PATCH TRANSDERMA (09:03)
[2021-03-11] MEDS: Benztropine Mesylate 1 MG TABLET PO ×2 (09:06→21:47)
[2021-03-11] MEDS: Cyanocobalamin (Vitamin B-12) 100 MCG TABLET 200 MCG PO (09:07)
[2021-03-11] MEDS: Gabapentin 600 MG TABLET PO ×2 (09:09→21:47)
[2021-03-11] MEDS: Levothyroxine Sodium 75 MCG TABLET PO (09:10)
[2021-03-11] MEDS: Loratadine 10 MG TABLET PO (09:10)
--- NOTE | 2021-03-11 10:32 | MHC.SL.DTX ---
Pre-Treatment Diet: Subjective: Changes made to current diet?: No Dysphasia Diet Status: No Change Liquid Consistency and Strategies: Liquid Intake Recommendation: Thin Compensatory Strategies for Safe Swallow: Small Sips No Straws Compensatory Strategies for Safe Swallow(b): Sitting Upright (90 deg) No Straw Small Bites and Sips Alternate Liquids/Solids Rate of Ingestion Change Solid Food Consistency: Dietary Recommendations: Full liquid diet Oral Medication Intake: Crushed with Puree Strategies and Precautions to be Taken for Safe Swallow: Compensatory Swallowing Status: Sitting Upright (90 deg) No Straw Small Bites and Sips Alternate Liquids/Solids Rate of Ingestion Change Supervision While Eating and/Drinking: Total Supervision (1:1) Swallowing Recommended Treatments: Compens. Strategy Educat. Level of Impact on: Daily activities: Severe Interpersonal interactions: Severe Community: Severe Prognosis for Improvement: Good Recommendation for Speech: Inpatient Speech Therapy Comment: Frequency/Duration: WIRING MECHANIC will follow patient throughout her hospitalization as indicated, pending GI consult. Date Range for Service Req: Timeline to reassess: Additional Comments: Treatment: Pt was seen for dysphagia treatment while seated upright in bed. Per EMR, pt underwent an EGD 03/09 which revealed an esophageal food obstruction, abnormal esophagus characterized by significantly diminished peristalsis and a dilated appearance. A small hiatal hernia was also visualized. Per GI, pt was advanced to a full liquid diet. A barium swallow study was performed 03/10 which confirmed pt's abnormal esophageal dysmotility consistent with achalasia and a small sliding type hiatal hernia. Per Dr. Peters' note, should pt's barium swallow study confirm achalasia, pt to remain on a full liquid diet with consideration of a G tube should pt be unable to tolerate full liquids. Updated with RN, who reported that pt tolerated medications crushed in puree this morning without overt difficulty. Pt appeared less confused this date. She tolerated thin liquids via cup sips for which she elicited a timely pharyngeal swallow trigger. No overt s/s aspiration were observed. Pt demonstrated fewer UE tremors this date and was able to hold the cup of liquids at times, with hand over hand assistance. Pt required cues for small, single sips vs. continuous sips she attempted to take. Pt appeared to understand the education provided, including the results of her EGD and barium swallow study. She appropriately asked how long she would need to be on a full liquid diet for. Pt notified that GI will determine this based upon her tolerance of full liquids. Continue with full liquid diet, aspiration precautions, and 1:1 assist/supervision with all PO intake. Updated with RN. WIRING MECHANIC will continue to follow pt x1 additional session to ensure continued tolerance of full liquids. Assessment: Jeeper Operator Clinican/Clinical Fellow: No Supervisory Statement: I have reviewed and agree with the student/clinical fellow's documentation: N/A Speech Language Pathologist: Celestina Kahn M.A., CCC-W[employer]
[2021-03-11 11:16] LABS: Glucose, Whole Blood 149 mg/dL (60-115)
[2021-03-11] MEDS: Acetaminophen 325 MG TABLET 650 MG PO ×2 (12:04→18:05)
[2021-03-11] MEDS: Lactulose 20 GM/30 ML SOLUTION PO (12:13)
[2021-03-11] MEDS: bisacodyL 10 MG SUPP.RECT PR (12:13)
--- NOTE | 2021-03-11 13:12 | MHC.CLN ---
NUTRITION CONSULT IF PEG TUBE PLACED, RECOMMEND TUBE FEEDING: GLUCERNA 1.0 AT MAX GOAL RATE OF 65 ML PER HOUR X 24 HOURS. FLUSH 120 ML WATER EVERY 8 HOURS. PROVIDES 1560 KCAL (28.6 KCAL/KG IBW) 65 G PROTEIN (1.19 G/KG IBW) 1330 ML FREE WATER PLUS FLUSH 360 OO=8646 ML (31 ML/KG IBW) START TUBE FEED AT 20 ML PER HOUR, INCREASE EVERY 4 HOURS TO MAX GOAL RATE OF 65 ML PER HOUR.
--- NOTE | 2021-03-11 16:05 | P.PNIM_ITS ---
Subjective Subjective Date of Service: 03/11/21 Interval History: the patient was seen and evaluated this morning Laying in bed, difficult to arouse but when she woke up she was more inter active Feeling little bit better but not sure how did she in the in the hospital Denies any fever, chills or shortness of breath No reported other overnight events. Systemic review: No fever, chills No chest pain, palpitation No shortness of breath or coughing No abdominal pain, nausea or vomiting No urinary symptoms No any rash or wounds Physical Exam Vital Signs: Vital Signs: Last Vital Signs Temp 98.3 F 03/11/21 15:16 Pulse 78 03/11/21 15:16 Resp 16 03/11/21 15:16 BP 131/64 03/11/21 15:16 Pulse Ox 98 03/11/21 15:16 Oxygen Flow Rate 3 03/10/21 16:17 Body Mass Index 37.2 Const: Other: Constitutional : Alert, oriented to self and place not in distress Neck : Normal inspection, Supple Cardiovascular : RRR, S1 S2, no lower extremity edema Respiratory : Fair bilateral air entry, basal fine crackles, wheezes or rhonchi Gastrointestinal: soft, lax, Normal bowel sounds, Non tender Skin : Warm, Dry Neurological : Alert & oriented x3, No focal deficit Objective Data Active Medications Acetaminophen (Acetaminophen 325 Mg Tablet) 650 mg PO Q6H PRN PRN Reason: Pain, Mild (Pain Scale 1-3) Last Admin: 03/11/21 12:04 Dose: 650 mg Documented by: AURELIO Acetaminophen (Acetaminophen 325 Mg Tablet) 650 mg PO ONCE PRN PRN Reason: Pain, Mild (Pain Scale 1-3) Benztropine Mesylate (Benztropine Mesylate 1 Mg Tablet) 1 mg PO BID [facility] Last Admin: 03/11/21 09:06 Dose: 1 mg Documented by: AURELIO Clonazepam (Clonazepam 0.5 Mg Tablet) 0.25 mg PO Q12H PRN PRN Reason: Anxiety Clonazepam (Clonazepam 0.5 Mg Tablet) 0.5 mg PO BEDTIME [facility] Last Admin: 03/10/21 21:08 Dose: 0.5 mg Documented by: FINN Cyanocobalamin (Cyanocobalamin (Vitamin B-12) 100 Mcg Tablet) 200 mcg PO DAILY [facility] Last Admin: 03/11/21 09:07 Dose: 200 mcg Documented by: AURELIO Dextrose (Dextrose 50 % 25 Gm/50 Ml Vial) 25 gm IVPUSH Q15M PRN; Protocol PRN Reason: per Hypoglycemia Standing Ord. Enalapril Maleate (Enalapril Maleate 5 Mg Tablet) 5 mg PO DAILY [facility]; Protocol Last Admin: 03/11/21 09:08 Dose: 5 mg Documented by: AURELIO Fentanyl (Fentanyl 12 Mcg Patch.Td72) 12 mcg TRANSDERMA Q3D [facility] Last Admin: 03/09/21 10:56 Dose: 12 mcg Documented by: TRUNG Fentanyl (Fentanyl Citrate/Pf 100 Mcg/2 Ml Vial) 25 mcg IVPUSH Q5M PRN; Protocol PRN Reason: Pain, Moderate (Pain Scale 4-6 Fluoxetine HCl (Fluoxetine Hcl 10 Mg Capsule) 10 mg PO DAILY [facility] Last Admin: 03/11/21 08:59 Dose: Not Given Documented by: AURELIO Non-Admin Reason: unable to crush Fluoxetine HCl (Fluoxetine Hcl 20 Mg Capsule) 40 mg PO DAILY [facility] Last Admin: 03/11/21 08:59 Dose: Not Given Documented by: AURELIO Non-Admin Reason: unable to crush Gabapentin (Gabapentin 400 Mg Capsule) 400 mg PO DAILY [facility] Last Admin: 03/11/21 09:00 Dose: Not Given Documented by: AURELIO Non-Chaz Reason: unable to crush Gabapentin (Gabapentin 600 Mg Tablet) 600 mg PO BID [facility] Last Admin: 03/11/21 09:09 Dose: 600 mg Documented by: AURELIO Glucose (Glucose Gel 15 Gm Gel..Gram.) 15 gm PO Q15M PRN; Protocol PRN Reason: per Hypoglycemia Standing Ord. Heparin Sodium (Porcine) (Heparin Sodium,Porcine 5,000 Unit/Ml Vial) 5,000 unit SUBCUT Q12H [facility] Last Admin: 03/10/21 06:16 Dose: Not Given Documented by: ASHLEE Non-Admin Reason: Physician Held Med Ceftriaxone Sodium 1 gm/ (Sodium Chloride) 50 mls @ 100 mls/hr IV Q24H [facility] Last Infusion: 03/10/21 21:31 Dose: 0 mls/hr Documented by: TUMASY Azithromycin 500 mg/ Sodium (Chloride) 250 mls @ 125 mls/hr IV Q24H [facility] Last Infusion: 03/10/21 18:08 Dose: 0 mls/hr Documented by: MARGO Insulin Human Lispro (Insulin Lispro 100 Unit/Ml 3 Ml Vial) 0 unit SUBCUT QIDACHS [facility]; Protocol Last Admin: 03/11/21 11:27 Dose: Not Given Documented by: AURELIO Non-Admin Reason: No Insulin Coverage Levothyroxine Sodium (Levothyroxine Sodium 75 Mcg Tablet) 75 mcg PO DAILY [facility] Last Admin: 03/11/21 09:10 Dose: 75 mcg Documented by: AURELIO Lidocaine (Lidocaine 4 % Patch Adh..Patch) 1 patch TRANSDERMA DAILY [facility]; Protocol Last Admin: 03/11/21 09:03 Dose: 1 patch Documented by: AURELIO Loratadine (Loratadine 10 Mg Tablet) 10 mg PO DAILY [facility] Last Admin: 03/11/21 09:10 Dose: 10 mg Documented by: AURELIO Metoprolol Tartrate (Metoprolol Tartrate 5 Mg/5 Ml Vial) 2.5 mg IVPUSH Q6H PRN PRN Reason: htn, tachycardia Nitroglycerin (Nitroglycerin 0.4 Mg Tab.Subl) 0.4 mg SUBLINGUAL Q5MX3 PRN PRN Reason: Chest Pain Last Admin: 03/09/21 08:28 Dose: 0.4 mg Documented by: TRUNG Ondansetron HCl (Ondansetron Hcl 4 Mg/2 Ml Vial) 4 mg IVPUSH Q8H PRN PRN Reason: Nausea and Vomiting Ondansetron HCl (Ondansetron Hcl 4 Mg/2 Ml Vial) 4 mg IVPUSH ONCE PRN PRN Reason: Nausea and Vomiting Oxycodone HCl (Oxycodone Hcl Immed Release 5 Mg Tablet) 5 mg PO Q6H PRN PRN Reason: Breakthrough Pain Last Admin: 03/10/21 21:11 Dose: 5 mg Documented by: FINN Pantoprazole Sodium (Pantoprazole Sodium 40 Mg/10 Ml Vial) 40 mg IVPUSH BID@0630,1630 [facility] Last Admin: 03/11/21 05:32 Dose: 40 mg Documented by: ALLYSSA Sodium Chloride (0.9 % Sodium Chloride Flush 3 Ml Syringe) 3 ml IVFLUSH QSHIFT [facility] Last Admin: 03/11/21 08:58 Dose: 3 ml Documented by: AURELIO Sodium Chloride (0.9 % Sodium Chloride Flush 3 Ml Syringe) 3 ml IVFLUSH QSNDFT [facility] Last Admin: 03/11/21 08:58 Dose: 3 ml Documented by: AURELIO Ziprasidone (Ziprasidone 20 Mg Capsule) 20 mg PO BID [facility] Last Admin: 03/11/21 09:02 Dose: Not Given Documented by: AURELIO Non-Admin Reason: unable to crush Labs CBC & Chem 7: 03/11/21 06:06 03/11/21 06:06 Labs: Laboratory Results - last 24 hr 03/10/21 03/10/21 03/11/21 17:07 20:55 06:06 MCV MCH MCHC RDW Plt Count MPV Absolute Nucleated RBC Nucleated RBC % (auto) Anion Gap 14 Estim Creat Clear Calc 70.6 Estimated GFR > 60 POC Glucose 103 216 H Random Glucose 116 H Calcium 9.1 03/11/21 03/11/21 03/11/21 06:06 07:03 11:00 MCV 102.3 H MCH 32.8 MCHC 32.1 RDW 13.9 Plt Count 287 MPV 10.5 Absolute Nucleated RBC 0.000 Nucleated RBC % (auto) 0.0 Anion Gap Estim Creat Clear Calc Estimated GFR POC Glucose 120 H 149 H Random Glucose Calcium Microbiology Microbiology Results: Microbiology 03/08/21 12:41 Blood Culture - Preliminary Blood - Venous No growth after 48 hours. 03/08/21 12:33 Blood Culture - Preliminary Blood - Venous No growth after 48 hours. Assessment and Plan (1) Achalasia, esophageal: Status: Acute (2) Acute encephalopathy: Status: Acute (3) Pneumonia: Status: Acute Assessment and Plan: 75 year old women admitted with encephalopathy secondary to UTI and CAP Aspiration pneumonia Negative cultures Continue IV antibiotics Wean of oxygen Achalasia difficulty swallowing Failed swallow evaluation, egd for food impaction done GI input appreciated, able to tolerate liquids Hold on PEG tube for now Chest pain No ischemic changes on EKG neg troponin Frequent belching may be secondary to aspiration Metabolic Encephalopathy. Secondary to infection Improving follow mental status CAP Rocephin, azithromycin Follow cx supplemental oxygen as needed Ecoli UTI Rocephin Diabetes ss, ada diet Mental health continue home medications DVT prophylaxis heparin Quality Stroke Does the patient have a stroke diagnosis?: No VTE Prior VTE?: No VTE Risk Level:: Medical - moderate - high VTE Device Contraindication: Treatment Not Indicated VTE Drug Contraindication: N/A - Med Ordered
[2021-03-11 16:23] LABS: Glucose, Whole Blood 163 mg/dL (60-115)
[2021-03-11] MEDS: Azithromycin 500 MG in 0.9 % Sodium Chloride 250 ML 125 MG IV (16:51)
[2021-03-11] MEDS: Insulin Lispro 100 UNIT/ML 3 ML VIAL SUBCUT (16:52)
[2021-03-11 20:50] LABS: Glucose, Whole Blood 89 mg/dL (60-115)
[2021-03-11] MEDS: cefTRIAXone sodium 1 GM in 0.9 % Sodium Chloride 50 ML IV (21:46)
[2021-03-11] MEDS: Ziprasidone 20 MG CAPSULE PO (21:47)
[2021-03-11] MEDS: clonazePAM 0.5 MG TABLET PO (21:47)
[2021-03-11] MEDS: oxyCODONE HCl Immed Release 5 MG TABLET PO (22:43)
[2021-03-12 03:35] VITALS: BP 109/50; PULSE 75; RESP 18; TEMP 36.3; O2SAT 97
[2021-03-12] MEDS: Pantoprazole Sodium 40 MG/10 ML VIAL IVPUSH (07:24)
[2021-03-12] MEDS: 0.9 % Sodium Chloride Flush 3 ML SYRINGE IVFLUSH ×2 (07:24)
[2021-03-12 07:36] VITALS: BP 122/58; PULSE 73; RESP 20; TEMP 36.7; O2SAT 94
[2021-03-12 07:55] LABS: Glucose, Whole Blood 119 mg/dL (60-115)
[2021-03-12 09:25] VITALS: BP 122/58; PULSE 73
[2021-03-12] MEDS: Benztropine Mesylate 1 MG TABLET PO (09:25)
[2021-03-12] MEDS: Lidocaine 4 % Patch ADH..PATCH 1 PATCH TRANSDERMA (09:25)
[2021-03-12] MEDS: Gabapentin 600 MG TABLET PO (09:25)
[2021-03-12] MEDS: Levothyroxine Sodium 75 MCG TABLET PO (09:25)
[2021-03-12] MEDS: Loratadine 10 MG TABLET PO (09:25)
[2021-03-12] MEDS: Cyanocobalamin (Vitamin B-12) 100 MCG TABLET 200 MCG PO (09:26)
[2021-03-12] MEDS: fentaNYL 12 MCG PATCH.TD72 TRANSDERMA (09:47)
--- NOTE | 2021-03-12 11:13 | MHC.SL.SWA ---
Speech Pathologist Impression: Oralpharyngeal Dysphagia Esophageal Dysphagia Risk of Aspiration Due to: Poor PO Intake Reduced Cognition Dysphasia Diet Status: No Change Liquid Consistency and Strategies for Safe Swallow: Liquid Intake Recommendation: Thin Liquid Intake Strategies: Small Sips No Straws Solid Food Consistency: Dietary Recommendations: Full liquid diet Oral Medication Intake: Crushed with Puree Compensatory Strategies and Precautions to be Taken for Safe Swallow: Sitting Upright (90 deg) No Straw Small Bites and Sips Alternate Liquids/Solids Rate of Ingestion Change Supervision While Eating and Drinking for Safe Swallow: Total Supervision (1:1) Swallowing Recommended Treatments: Compens. Strategy Educat. Recommendation for Speech: Further ST intervention no longer warranted. Recommend G.I. continue to follow d/t esophageal dysphagia. Please re-refer if there are any changes or if MERCHANT MILLER can be of further assistance. Comment: EGD on 03/09 revealed an esophageal food obstruction, abnormal esophagus characterized by significantly diminished peristalsis and a dilated appearance. A small hiatal hernia was also visualized. Per GI, pt was advanced to a full liquid diet. A barium swallow study was performed 03/10 which confirmed pt's abnormal esophageal dysmotility consistent with achalasia and a small sliding type hiatal hernia. Per Dr. Peters' note, should pt's barium swallow study confirm achalasia, pt to remain on a full liquid diet with consideration of a G tube should pt be unable to tolerate full liquids. RN reported that patient tolerated medication crushed in puree. Faculty Research Assistant Clinican/Clinical Fellow: No Supervisory Statement: I have reviewed and agree with the student/clinical fellow's documentation: N/A Speech Language Pathologist: Xenia Fried M.A., CCC-[employer]
[2021-03-12 11:21] VITALS: BP 137/71; PULSE 116; RESP 18; TEMP 36.2; O2SAT 92
[2021-03-12 11:33] LABS: Glucose, Whole Blood 150 mg/dL (60-115)
--- NOTE | 2021-03-12 11:41 | PM.DS ---
DS: Providers Provider Date of Service: 03/12/21 Date of admission: 03/08/21 20:34 Primary care physician: Justin Sahu MD Consults: 03/09/21 11:07 Consult to Gastroenterology Routine Consulting Provider: Suman Peters Reason for consultation: painful swallowing Has provider been notified: No DS: Diagnosis Discharge Diagnosis (1) Achalasia, esophageal: Status: Acute (2) Acute encephalopathy: Status: Acute (3) Pneumonia: Status: Acute (4) E-coli UTI: Status: Acute (5) Dysphagia: Status: Acute (6) Esophageal obstruction due to food impaction: Status: Acute DS: Summary Hospital Course Hospital Course: Admission note HPI 75-year-old female presents from [facility] because of the staff's concerns there for altered mental status, low oxygen saturation, possible aspiration, and UTI.? Patient is being treated with Macrobid for UTI.? Macrobid was started 2 days ago.?Staff at prison stated there was a possible aspiration when patient was eating yesterday.? Chest x-ray was negative yesterday.? Patient is normally on 2-3 L of oxygen, now she requires 4 L of oxygen.? Staff at prison states patient's oxygen was in the low 90s earlier today.?EMS stated patient's blood pressure was 90/52 upon arrival.? Staff at prison states patient's mental status has changed since yesterday and worsened.?? She had a positive urine culture on March 05 that showed E coli.? She had been on nitrofurantoin.? Chest x-ray today showed bilateral atelectasis and pneumonia. ? vital signs stable.? She was given a dose of cefepime in the ER.? She will be admitted for further management treatment of encephalopathy secondary to UTI and community-acquired pneumonia. Hospital course The patient was admitted to the hospital for evaluation of altered mentation believed to be secondary to infection. She was noted to have urinary tract infection with during culture growing E coli sensitive. X-ray was concerning for possible aspiration pneumonia. Patient was treated with IV antibiotics of azithromycin and ceftriaxone with good response over the course of hospital stay as her mentation improved and blood cultures remain negative. Evaluated by Gastroenterology for concern of food impaction. Endoscopy showed a piece of food that was removed and evidence of achalasia and dilatation of the esophagus wall with no peristalsis movement noticed. A barium swallow was done confirming a diagnosis of achalasia. Dr. Peters recommended full liquid diet for the time being. Patient was evaluated by speech therapy who recommended aspiration precautions and keep the head up with crushed medications with puree. To be discharged on azithromycin and Ceftin Start omeprazole daily Time Spent with Patient Time attestation: Total time spent providing and/or coordinating discharge services: Discharge coordination time: Greater than 30 minutes Quality: Stroke Does the patient have a stroke diagnosis?: No Physical Exam Vital Signs: Vital Signs: Last Vital Signs Temp 97.2 F 03/12/21 11:21 Pulse 116 H 03/12/21 11:21 Resp 18 03/12/21 11:21 BP 137/71 03/12/21 11:21 Pulse Ox 92 03/12/21 11:21 Oxygen Flow Rate 3 03/10/21 16:17 Body Mass Index 37.2 Const: Other: Constitutional : Alert, oriented to self and place not in distress Neck : Normal inspection, Supple Cardiovascular : RRR, S1 S2, no lower extremity edema Respiratory : Fair bilateral air entry, basal fine crackles, wheezes or rhonchi Gastrointestinal: soft, lax, Normal bowel sounds, Non tender Skin : Warm, Dry Neurological : Alert & oriented x3, No focal deficit DS: Data Data Completed and Pending Labs on day of discharge: Laboratory Results - last 24 hr 03/11/21 03/11/21 03/12/21 16:08 20:45 07:40 POC Glucose 163 H 89 119 H 03/12/21 11:20 POC Glucose 150 H Preliminary micro results at discharge 03/08/21 12:41 Blood Culture - Preliminary Blood - Venous No growth after 48 hours. 03/08/21 12:33 Blood Culture - Preliminary Blood - Venous No growth after 48 hours. Imaging Chest x-ray: Radiologist's impression: ITS Impressions Head CT 03/08/21 12:13 IMPRESSION: No acute findings. Old left occipital infarct. Soft tissue opacification of the right mastoid air cells questionable for mastoiditis. This is new from [address] 03/08/21 12:21 IMPRESSION: Bibasilar atelectasis and pneumonia, right greater than left. There is volume loss to the both lower lobes.. Barium Swallow X-Ray 03/10/21 08:00 IMPRESSION: Limited exam. Abnormal esophageal motility and achalasia. Small sliding-type hiatal hernia. Discharge Plan Discharge Patient Disposition: [facility] Discharge Diagnosis: Food impaction Achalasia Pneumonia UTI Referrals: [facility] [Outside] - 1 Week Justin Sahu MD [Primary Care Provider] - 1 Week Discharge Medications: New omeprazole 40 mg capsule,delayed release(DR/EC) 40 mg PO DAILY Qty: 30 RF: 0 cefuroxime axetil 250 mg tablet 250 mg PO BID Qty: 10 RF: 0 azithromycin 500 mg tablet 500 mg PO DAILY 2 Days Qty: 2 RF: 0 Continued pioglitazone [Actos] 15 mg Tablet 15 mg PO DAILY RF: 0 gabapentin 600 mg tablet 1 tab PO BID RF: 0 cyanocobalamin (vitamin B-12) 100 mcg Tablet 200 mcg PO DAILY RF: 0 enalapril maleate [Vasotec] 5 mg Tablet 5 mg PO DAILY RF: 0 cetirizine 10 mg Tablet 10 mg PO DAILY RF: 0 clonazepam 0.5 mg tablet 1 tab PO BEDTIME RF: 0 gabapentin 400 mg capsule 1 cap PO DAILY RF: 0 levothyroxine 75 mcg tablet 1 tab PO DAILY RF: 0 ziprasidone HCl [Geodon] 20 mg Capsule 20 mg PO BID RF: 0 benztropine 1 mg tablet 1 tab PO BID RF: 0 fluoxetine 10 mg capsule 1 cap PO DAILY RF: 0 nitroglycerin 0.4 mg tablet, sublingual 0.4 mg sublingual DIRECTED PRN (Reason: Chest Pain) RF: 0 fluoxetine 20 mg capsule 2 cap PO QAM RF: 0 oxycodone 5 mg tablet 1 tab PO QID PRN (Reason: Pain) RF: 0 clonazepam 0.25 mg Tablet,Disintegrating 0.25 mg PO Q12H PRN (Reason: Anxiety) RF: 0 nitrofurantoin monohyd/m-cryst [Macrobid] 100 mg Capsule 100 mg PO BID RF: 0 fentanyl 12 mcg/hr patch 72 hour 1 patch topical Q3D RF: 0 Discharge Orders: Discharge Order (Routine); Ordered 03/12/21 Ordered By: Rehan Spangler Activity on Discharge: As tolerated Stand Alone Forms: Patient Portal Discharge page Care Plan Goals: Read below Health Concerns: Read below Plan of Treatment: You were admitted to the hospital for altered mentation. Found to have urine and lung infection treated with IV antibiotics with good response. You developed food impaction in the esophagus. Dr. Peters from Gastroenterology did an EGD to remove the impacted food found that you have narrowing in the last part of your esophagus with recommendations for full liquid diet only. Assessment: GI recommended full liquid diet, medications crushed in pureed Continue Ceftin and azithromycin as prescribed Continue omeprazole as prescribed To follow-up with Dr. Peters from Gastroenterology as outpatient after calling for an appointment.
--- NOTE | 2021-03-12 12:02 | MHC.CLN ---
F/U PT REMAINS ON F/L DIET PENDING D/C TO SNF TODAY PT CAN NOT MEET KCAL/PROTEIN GOAL WITH FULL LIQUID DIET MAY NEED PEG IN FUTURE PER MD RECOMMEND ENSURE ENLIVE TID TO PROVIDE 1050KCALS (67% EST KCALS), 60G PROTEIN (87% EST PROTEIN NEEDS) PT CAN MEET NEEDS WITH ADDED SUPPLEMENT BUT WILL NEED TO CONSUME TID DAILY MONITOR SUPPLEMENT ACCEPTANCE CLOSELY WITH PO INTAKE IF TF NEEDED; PLEASE CONSULT RD
--- NOTE | 2021-03-12 12:11 | MHC.CM.PN ---
IMM 03/12/21 Female 75 DX PNA. She is discharged today. Both contacts called left. [facility] has been notified of the discharge today. Information r/t DC has been sent to the facility. BLS will provide transportation. Transport booked for 17:00 at request of ZULMA.
[2021-03-12 12:19] LABS: COVID-19 Test Negative (Negative)
[2021-03-12 15:17] VITALS: BP 112/63; PULSE 71; RESP 18; TEMP 36.2; O2SAT 92
[2021-03-12 16:00] VITALS: O2SAT 93
== END 2021-03-12 17:19 | disposition skilled nursing facility (03) | DRG 177 ==
LOC: HO.ED 15:16 → HO.EDOVER 21:33 → HO.IMC 23:34
PROVIDERS: Internal Medicine; Nurse Practitioner Acute Care; Physician Assistant; Admitting Provider Hospitalist; Emergency Provider Emergency Medicine; PCP Family Medicine; Visit Provider Student in an Organized Health Care Education/Training Program
PROC: 0DJ08ZZ Inspection of Upper Intestinal Tract, Via Natural or Artificial Opening Endoscopic (ICD-10-PCS; CPT 43235; principal; 2021-03-09 15:00)
DX: J69.0 Pneumonitis due to inhalation of food and vomit (principal); G92 Toxic encephalopathy; N39.0 Urinary tract infection, site not specified; B96.20 Unspecified Escherichia coli [E. coli] as the cause of diseases classified elsewhere; D72.829 Elevated white blood cell count, unspecified; K22.0 Achalasia of cardia; K44.9 Diaphragmatic hernia without obstruction or gangrene; E11.9 Type 2 diabetes mellitus without complications; Z96.641 Presence of right artificial hip joint; Z20.822 Contact with and (suspected) exposure to COVID-19; Z88.0 Allergy status to penicillin; Z88.2 Allergy status to sulfonamides; Z79.890 Hormone replacement therapy; Z79.899 Other long term (current) drug therapy
CPT/HCPCS: 36415; 70450; 71250; 74220; 80048; 80053; 81001; 82947; 83605; 83880; 84484; 85025; 85027; 85610; 85730; 87040; 87086; 87088; 87186; 87635; 92610; 93005; 96361; 96374; 99285; J0456; J0692; J0696; J1170

== ENCOUNTER 2021-05-01 21:51 | Inpatient (IN) | payer MEDICARE, MEDICAID, SELFPAY ==
--- NOTE | ~2021-05-01 | CT_ITS ---
EXAM: NONCONTRAST CT OF THE CHEST; NONCONTRAST CT OF THE ABDOMEN AND PELVIS INDICATION: Right-sided abdominal pain, shortness breath, hypoxia COMPARISON: 03/08/2021 TECHNIQUE: No IV contrast was utilized. Multidetector helical imaging was performed through the chest, abdomen, and pelvis. Coronal and sagittal reformatted images were created at the technologist workstation. DOSE LOWERING TECHNIQUES: This CT examination was performed using dose optimization techniques as appropriate, variously including the following: - Automated exposure control - Adjustment of mA and/or kV according to patient size (this includes techniques or standardized protocols for targeted exams were dose is matched to indication/reason for exam; i.e. extremities or head) - Use of iterative reconstruction technique DLP: 1643 mGy-cm FINDINGS: Chest: Detailed evaluation of the lung parenchyma is limited due to respiratory motion artifact. There is a region of dense consolidation in the posterior right lower lobe. Patchy consolidation is also present in the posterior right upper lobe, with a few smaller scattered groundglass foci in the anterior right upper lobe. Curvilinear atelectasis is present in the lingula and basilar left lower lobe. There is mild upper lobe predominant emphysema. No pneumothorax or pleural effusion. The visualized thyroid gland is unremarkable. There are subcentimeter mediastinal lymph nodes within the range of normal variation. There is mild fluid distention of the esophagus. Cardiac size is within normal limits; no pericardial effusion. The ascending aorta appears prominent, measuring approximately 4.2 cm in diameter. Scattered atherosclerotic calcifications are present along the aorta. No axillary lymphadenopathy is present. Degenerative changes are present in the spine and shoulders. Abdomen/Pelvis: Limited evaluation some regions due to motion artifact. The liver is homogeneous in attenuation without intrahepatic biliary ductal dilatation. The gallbladder is distended with suspected cholelithiasis versus gallbladder sludge. The unenhanced spleen, pancreas, and adrenal glands are within normal limits. Multiple bilateral renal hypodensities are redemonstrated, consistent with cysts; no follow-up recommended. No hydronephrosis. A few small calculi are noted in the lower kidneys. The urinary bladder is unremarkable. Patient appears to be status post hysterectomy. The stomach is distended with gas and fluid. There is fluid distention of multiple loops of proximal small bowel. Distal small bowel loops are relatively collapsed, and overall configuration could represent sequelae of a partial bowel obstruction. There is colonic diverticulosis without diverticulitis. Large amount of stool is noted in the rectum. The appendix is suspected to be collapsed. No free fluid or free air is identified. There is atherosclerotic calcification along the aorta. No retroperitoneal or pelvic lymphadenopathy is seen. Degenerative changes are noted in the spine. CT/CT abdomen pelvis wo con IMPRESSION: 1. Bilateral consolidations, most prominently in the posterior right lower lobe, which may be secondary to aspiration and/or pneumonia in the proper clinical setting. 2. Distention of the stomach and multiple loops of proximal small bowel, suggesting raising the possibility of a partial small bowel obstruction. 3. Cholelithiasis versus gallbladder sludge. 4. Prominent ascending aorta measuring approximately 4.2 cm in diameter.
--- NOTE | ~2021-05-01 | XR_ITS ---
EXAMINATION: XR CHEST CLINICAL INFORMATION: Hypoxia. COMPARISON: Chest radiograph dated from 03/05/[address] chest dated from 03/08/2021. TECHNIQUE: AP view of the chest was obtained. FINDINGS: Stable appearance of the cardiomediastinal silhouette with asymmetric prominence of the right mediastinum. Low lung volumes with subsegmental atelectasis of both lung bases. However, there are somewhat irregular and more hazy opacities in the right middle and lower lobes that could represent more than subsegmental atelectasis. No pleural effusion or pneumothorax. No acute osseous findings. Moderate degenerative osteoarthritis of the right shoulder. XR/XR chest 1V IMPRESSION: Suspect developing infiltrate or aspiration in the right middle/lower lobes. Correlate clinically. Follow-up to ensure resolution.
--- NOTE | ~2021-05-01 | MR_ITS ---
EXAMINATION: MR BRAIN WITHOUT CONTRAST CLINICAL INFORMATION: Assess for right hemispheric stroke. COMPARISON: CT dated 03/08/2021. TECHNIQUE: Multiplanar, multisequence imaging of the brain was performed without contrast. Limited study with motion artifacts. FINDINGS: No diffusion abnormalities are identified to suggest an acute infarct. No hydrocephalus evident. No mass effect or midline shift is seen. Mild chronic white matter microangiopathic changes noted. There is encephalomalacia in the left occipital lobe, presumably due to a chronic infarct. Small triangular area of gliosis in the right parietal cortical horowitz matter. Generalized parenchymal volume loss noted. No extra-axial fluid collections are seen. The brainstem and cerebellum are normal. The gradient refocused acquisition demonstrates no pathologic magnetic susceptibility artifact to indicate underlying acute or chronic blood products. The craniovertebral junction, marrow signal, and midline structures are normal. The major intracranial flow voids at the level of the [place] of [place] are preserved. The dural venous sinus flow voids are maintained. There is mild mucosal thickening in the nasal sinuses. Bilateral mastoid effusions, worse on the right side. The nasopharyngeal soft tissues are grossly unremarkable. MR/MR head/brain wo con IMPRESSION: No acute infarct evident on limited diffusion imaging with motion artifacts. Mild chronic white matter microangiopathy. 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 Bilateral mastoid effusions, worse on the right side.
[2021-05-01 22:02] VITALS: BP 98/78; PULSE 133; RESP 20; TEMP 36.5; O2SAT 86; BMI 31.3
[2021-05-01 22:37] LABS: Basophils Absolute Auto 0.1 X10*3/uL (0.0-0.2); Basophils Percent Auto 0.2 % (0-2); Hematocrit 46.2 % (37-47); Hemoglobin 14.9 g/dl (12.0-16.0); Imm Gran Abs Auto 0.26 X10*3/uL (0.00-0.03); Imm Gran Pct Auto 0.8 % (0.0-0.4); Lymphocytes Absolute Auto 0.9 X10*3/uL (1.2-4.9); Lymphocytes Percent Auto 2.7 % (20-40); MANUAL DIFF FLAG SCAN; Mean Corpuscular HGB Conc 32.3 g/dl (31.0-35.0); Mean Corpuscular Hemoglobin 33.8 pg (27.0-33.0); Mean Corpuscular Volume 104.8 fL (80-98); Mean Platelet Volume 9.6 fL (9.4-12.3); Monocytes Absolute Auto 1.6 X10*3/uL (0.1-1.2); Monocytes Percent Auto 4.7 % (2-11); Neutrophils Absolute Auto 30.9 X10*3/uL (2.0-8.3); Neutrophils Percent Auto 91.6 % (45-73); Platelet Count 493 X10*3/uL (160-400); Red Blood Count 4.41 X10*6/uL (4.20-5.50); Red Cell Distribution Width 14.1 % (11.0-16.0); SCAN SMEAR FLAG 1
[2021-05-01 22:45] VITALS: BP 80/60; PULSE 129; TEMP 37.9
[2021-05-01 22:54] LABS: White Blood Count 33.7 X10*3/uL (4.8-10.8)
[2021-05-01 22:56] LABS: Appearance Urine CLEAR; Color Urine YELLOW; Glucose Urine UA NEG (NEG); Leukocyte Esterase Urine 1+ (NEG); Nitrite Urine POS (NEG); PH 5.5 (5.0-8.0); Specific Gravity - Urine 1.015 (1.005-1.025); UACC Culture Trigger YES; Urine Blood NEG (NEG); Urine Ketones NEG (NEG); Urine Protein NEG (NEG-TRACE)
[2021-05-01 22:56] LABS: Troponin-I High Sensitivity 12.7 ng/L (<3.5-17.0)
[2021-05-01 22:58] LABS: SLIDE REVIEW VERIFIED
[2021-05-01 22:59] LABS: Lactic Acid 3.8 mmol/L (0.5-2.0)
[2021-05-01 23:04] LABS: COVID-19 Test Negative (Negative)
[2021-05-01 23:08] LABS: Anion Gap 21 (12-20); Blood Urea Nitrogen 44 mg/dL (9-16); Calcium 9.2 mg/dL (8.4-10.2); Carbon Dioxide 19 mmol/L (22-29); Chloride 102 mmol/L (96-108); Creatinine Clr Calc Pharmacy 28.8; Estimated Glomerular Filt Rate 26; Glucose Random 332 mg/dL (60-115); Potassium 5.6 mmol/L (3.3-5.1); Sodium 136 mmol/L (135-145)
--- NOTE | 2021-05-01 23:08 | ED_ITS ---
HPI - Nausea/Vomiting/Diarrhea General Chief complaint: Nausea/Vomiting/Diarrhea Stated complaint: failure to thrive Time Seen by Provider: 05/01/21 22:57 Source: EMS and other Mode of arrival: EMS History of Present Illness HPI Narrative: This is a 75-year-old female who is brought in via EMS secondary to concerns by the long-term care facilities noting that patient was experiencing low oxygen saturation with nausea/vomiting. Otherwise, unable to obtain any further history from patient and collateral information will be gathered from the facility as well as family members. Patient is noted to be DNR/DNI as well as declining noninvasive respiratory support such as CPAP/BiPAP. Related Data Home Medications Medication Instructions Recorded Confirmed benztropine 1 mg tablet 1 tab PO BID 03/08/21 05/02/21 cetirizine 10 mg tablet 10 mg PO DAILY 03/08/21 05/02/21 clonazepam 0.25 mg disintegrating 0.25 mg PO DAILY PRN 03/08/21 05/02/21 tablet clonazepam 0.5 mg tablet 1 tab PO BEDTIME 03/08/21 05/02/21 cyanocobalamin (vitamin B-12) 100 200 mcg PO DAILY 03/08/21 05/02/21 mcg tablet enalapril maleate 5 mg tablet 5 mg PO DAILY 03/08/21 05/02/21 (Vasotec) fentanyl 12 mcg/hr transdermal 1 patch TOPICAL Q3D 03/08/21 05/02/21 patch fluoxetine 10 mg capsule 1 cap PO DAILY 03/08/21 05/02/21 fluoxetine 20 mg capsule 2 cap PO QAM 03/08/21 05/02/21 gabapentin 400 mg capsule 1 cap PO DAILY 03/08/21 05/02/21 gabapentin 600 mg tablet 1 tab PO BID 03/08/21 05/02/21 levothyroxine 75 mcg tablet 1 tab PO DAILY 03/08/21 05/02/21 nitroglycerin 0.4 mg sublingual 0.4 mg SUBLINGUAL DIRECTED PRN 03/08/21 05/02/21 tablet oxycodone 5 mg tablet 1 tab PO BID PRN 03/08/21 05/02/21 pioglitazone 15 mg tablet (Actos) 15 mg PO DAILY 03/08/21 05/02/21 ziprasidone HCl 20 mg capsule 20 mg PO BID 03/08/21 05/02/21 (Geodon) Previous Rx's Medication Instructions Recorded omeprazole 40 mg capsule,delayed 40 mg PO DAILY #30 cap 03/12/21 release Allergies Allergy/AdvReac Type Severity Reaction Status Date / Time ciprofloxacin [From CIPRO] Allergy Unknown UNKNOWN Verified 05/01/21 22:14 clarithromycin [From Biaxin] Allergy Unknown UNKNOWN Verified 05/01/21 22:14 Effexor Allergy Unknown Unknown Verified 05/01/21 22:14 Floxin Otic Allergy Unknown Unknown Verified 05/01/21 22:14 levofloxacin [From LEVAQUIN] Allergy Unknown UNKNOWN Verified 05/01/21 22:14 loratadine [From CLARITIN] Allergy Unknown UNKNOWN Verified 05/01/21 22:14 ofloxacin [From FLOXIN] Allergy Unknown UNKNOWN Verified 05/01/21 22:14 penicillin V Allergy Unknown Unknown Verified 05/01/21 22:14 Penicillins [PENICILLINS] Allergy Unknown UNKNOWN Verified 05/01/21 22:14 sertraline [Zoloft] Allergy Unknown Unknown Verified 05/01/21 22:14 Sulfa (Sulfonamide Allergy Unknown Unknown Verified 05/01/21 22:14 Antibiotics) sulfamethoxazole Allergy Unknown UNKNOWN Verified 05/01/21 22:14 [From BACTRIM] trimethoprim [From BACTRIM] Allergy Unknown UNKNOWN Verified 05/01/21 22:14 Review of Systems Review of Systems: Yes Unobtainable due to mental condition [facility] Past Medical History Medical History (Updated 05/02/21 @ 08:21 by Amanda Denny MD) Achalasia, esophageal Anxiety Bipolar 1 disorder CKD (chronic kidney disease) COPD (chronic obstructive pulmonary disease) Depression Difficulty in walking Dysphagia Gastro-esophageal reflux History of COVID-19 Hypertension Hypothyroidism Osteoarthritis Paroxysmal atrial fibrillation Polyneuropathy Type 2 diabetes mellitus Vitamin B12 deficiency 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 GENERAL: Well developed, well nourished, in no acute distress. HEAD: Normocephalic/atraumatic EYES: PERRLA, EOMI OROPHARYNX: no oral lesions noted, posterior pharynx clear, dry mucosa NECK: Supple, no adenopathy LUNGS: Decreased breath sounds with rhonchi and tachypnea SpO2<86> on sup plemental oxygen CARDIOVASCULAR: Regular rate and rhythm without noted murmurs, no JVD or lower extremity edema. ABDOMEN: Obese, Soft, tenderness noted to the right side of the abdomen, non-distended with hypoactive bowel sounds. MUSCULOSKELETAL: No tenderness, deformities, or effusions noted on gross inspection. EXTREMITIES: No cyanosis, clubbing or edema. SKIN: Inspection of the skin reveals no rashes NEUROLOGIC: Drowsy but arousable and following commands. Strength and sensation to light touch were grossly intact x,4 but noted to be leaning to the right. Course Course Course Narrative: 75-year-old female with suspected intra-abdominal pathology as well as aspiration pneumonia with sepsis On review of all investigations patient has findings consistent with bilateral lower lobe pneumonia as well as partial small-bowel obstruction, UTI, and on giving sepsis fluids patient blood pressure responded well. Patient also received initial antibiotics in this case was further discussed with the inpatient hospitalist who accepts admission. MDM - Nausea/Vomiting/Diarrhea Lab Data Result diagrams: 05/02/21 06:01 05/02/21 06:01 Labs: Lab Results 05/01/21 05/01/21 05/01/21 Range/Units 22:31 22:31 22:32 WBC 33.7 H* (4.8-10.8) X10*3/uL RBC 4.41 D (4.20-5.50) X10*6/uL Hgb 14.9 D (12.0-16.0) g/dl Hct 46.2 D (37-47) % MCV 104.8 H (80-98) fL MCH 33.8 H (27.0-33.0) pg MCHC 32.3 (31.0-35.0) g/dl RDW 14.1 (11.0-16.0) % Plt Count 493 H D (160-400) X10*3/uL MPV 9.6 (9.4-12.3) fL Immature Gran % (Auto) 0.8 H (0.0-0.4) % Neut % (Auto) 91.6 H (45-73) % Lymph % (Auto) 2.7 L (20-40) % [place] % (Auto) 4.7 (2-11) % Eos % (Auto) 0.0 (0-4) % Baso % (Auto) 0.2 (0-2) % Lymph # (Auto) 0.9 L (1.2-4.9) X10*3/uL [place] # (Auto) 1.6 H (0.1-1.2) X10*3/uL Eos # (Auto) 0.0 (0.0-0.4) X10*3/uL Baso # (Auto) 0.1 (0.0-0.2) X10*3/uL Abs Immat Gran (auto) 0.26 H (0.00-0.03) X10*3/uL Absolute Neuts (auto) 30.9 H (2.0-8.3) X10*3/uL Absolute Nucleated RBC 0.000 (0.0-0.012) X10*3/uL Nucleated RBC % (auto) 0.0 (0.0-0.2) /100WBC Smear Tech's Comments VERIFIED Sodium (135-145) mmol/L Potassium (3.3-5.1) mmol/L Chloride (96-108) mmol/L Carbon Dioxide (22-29) mmol/L Anion Gap (12-20) BUN (9-16) mg/dL Creatinine (0.5-1.4) mg/dL Estim Creat Clear Calc Estimated GFR Random Glucose (60-115) mg/dL Lactic Acid 3.8 H* (0.5-2.0) mmol/L Lactic Acid Fup @ 2Hr (0.5-2.0) mmol/L Calcium (8.4-10.2) mg/dL Troponin I High Sens 12.7 D (<3.5-17.0) ng/L Urine Color Urine Appearance Urine pH (5.0-8.0) Ur Specific Sod (1.005-1.025) Urine Protein (NEG-TRACE) MG/DL Urine Glucose (UA) (NEG) MG/DL Urine Ketones (NEG) MG/DL Urine Blood (NEG) Urine Nitrite (NEG) Ur Leukocyte Esterase (NEG) Urine RBC (0) /HPF Urine WBC (0-4) /HPF Ur Squamous Epith Cells /LPF Calcium Phosphate Cryst /LPF Urine Bacteria /LPF COVID-19 (IVANNA) (Negative) COVID-19 Clin Com 05/01/21 05/01/21 05/01/21 Range/Units 22:35 22:47 22:53 WBC (4.8-10.8) X10*3/uL RBC (4.20-5.50) X10*6/uL Hgb (12.0-16.0) g/dl Hct (37-47) % MCV (80-98) fL MCH (27.0-33.0) pg MCHC (31.0-35.0) g/dl RDW (11.0-16.0) % Plt Count (160-400) X10*3/uL MPV (9.4-12.3) fL Immature Gran % (Auto) (0.0-0.4) % Neut % (Auto) (45-73) % Lymph % (Auto) (20-40) % Mingo % (Auto) (2-11) % Eos % (Auto) (0-4) % Baso % (Auto) (0-2) % Lymph # (Auto) (1.2-4.9) X10*3/uL Mingo # (Auto) (0.1-1.2) X10*3/uL Eos # (Auto) (0.0-0.4) X10*3/uL Baso # (Auto) (0.0-0.2) X10*3/uL Abs Immat Gran (auto) (0.00-0.03) X10*3/uL Absolute Neuts (auto) (2.0-8.3) X10*3/uL Absolute Nucleated RBC (0.0-0.012) X10*3/uL Nucleated RBC % (auto) (0.0-0.2) /100WBC Smear Tech's Comments Sodium 136 (135-145) mmol/L Potassium 5.6 H D (3.3-5.1) mmol/L Chloride 102 (96-108) mmol/L Carbon Dioxide 19 L (22-29) mmol/L Anion Gap 21 H (12-20) BUN 44 H D (9-16) mg/dL Creatinine 1.89 H (0.5-1.4) mg/dL Estim Creat Clear Calc 28.8 Estimated GFR 26 Random Glucose 332 H (60-115) mg/dL Lactic Acid (0.5-2.0) mmol/L Lactic Acid Fup @ 2Hr (0.5-2.0) mmol/L Calcium 9.2 (8.4-10.2) mg/dL Troponin I High Sens (<3.5-17.0) ng/L Urine Color YELLOW Urine Appearance CLEAR Urine pH 5.5 (5.0-8.0) Ur Specific Sod 1.015 (1.005-1.025) Urine Protein NEG (NEG-TRACE) MG/DL Urine Glucose (UA) NEG (NEG) MG/DL Urine Ketones NEG (NEG) MG/DL Urine Blood NEG (NEG) Urine Nitrite POS H (NEG) Ur Leukocyte Esterase 1+ H (NEG) Urine RBC 0 (0) /HPF Urine WBC 10-14 H (0-4) /HPF Ur Squamous Epith Cells 1+ /LPF Calcium Phosphate Cryst 1+ /LPF Urine Bacteria TRACE /LPF COVID-19 (IVANNA) Negative (Negative) COVID-19 Clin Com See Note 05/02/21 Range/Units 01:03 WBC (4.8-10.8) X10*3/uL RBC (4.20-5.50) X10*6/uL Hgb (12.0-16.0) g/dl Hct (37-47) % MCV (80-98) fL MCH (27.0-33.0) pg MCHC (31.0-35.0) g/dl RDW (11.0-16.0) % Plt Count (160-400) X10*3/uL MPV (9.4-12.3) fL Immature Gran % (Auto) (0.0-0.4) % Neut % (Auto) (45-73) % Lymph % (Auto) (20-40) % [place] % (Auto) (2-11) % Eos % (Auto) (0-4) % Baso % (Auto) (0-2) % Lymph # (Auto) (1.2-4.9) X10*3/uL [place] # (Auto) (0.1-1.2) X10*3/uL Eos # (Auto) (0.0-0.4) X10*3/uL Baso # (Auto) (0.0-0.2) X10*3/uL Abs Immat Gran (auto) (0.00-0.03) X10*3/uL Absolute Neuts (auto) (2.0-8.3) X10*3/uL Absolute Nucleated RBC (0.0-0.012) X10*3/uL Nucleated RBC % (auto) (0.0-0.2) /100WBC Smear Tech's Comments Sodium (135-145) mmol/L Potassium (3.3-5.1) mmol/L Chloride (96-108) mmol/L Carbon Dioxide (22-29) mmol/L Anion Gap (12-20) BUN (9-16) mg/dL Creatinine (0.5-1.4) mg/dL Estim Creat Clear Calc Estimated GFR Random Glucose (60-115) mg/dL Lactic Acid (0.5-2.0) mmol/L Lactic Acid Fup @ 2Hr 3.6 H* (0.5-2.0) mmol/L Calcium (8.4-10.2) mg/dL Troponin I High Sens (<3.5-17.0) ng/L Urine Color Urine Appearance Urine pH (5.0-8.0) Ur Specific Sod (1.005-1.025) Urine Protein (NEG-TRACE) MG/DL Urine Glucose (UA) (NEG) MG/DL Urine Ketones (NEG) MG/DL Urine Blood (NEG) Urine Nitrite (NEG) Ur Leukocyte Esterase (NEG) Urine RBC (0) /HPF Urine WBC (0-4) /HPF Ur Squamous Epith Cells /LPF Calcium Phosphate Cryst /LPF Urine Bacteria /LPF COVID-19 (IVANNA) (Negative) COVID-19 Clin Com Discharge Plan Discharge Clinical Impression: Bilateral pneumonia, Partial small bowel obstruction, Acute UTI, Hypoxia Patient Disposition: Admitted As Inpatient
--- NOTE | 2021-05-01 23:09 | PC.NURSE ---
attempted to call primary contact conner patel- number is disconnected, attempted brother cherelle- no answer. called [facility] spoke with nurse Mahamed- who stated conner patel patients sister is , brothers cherelle and brother ivan [phone] are not answering the phones. this nurse attempted them as well.
[2021-05-01 23:31] LABS: Bacteria Urine TRACE /LPF; RBC Urine 0 /HPF (0); Squamous Epithelial Cell Urine 1+ /LPF
[2021-05-01 23:32] LABS: Calcium Phosphate Crystals Ur 1+ /LPF
[2021-05-01] MEDS: cefTRIAXone sodium 2 GM in 0.9 % Sodium Chloride 50 ML IV (23:34)
--- NOTE | 2021-05-01 23:36 | PC.NURSE ---
ivf hung per order, pt medicated with iv antibiotics per order
[2021-05-02] VITALS (22 sets, daily range): BP systolic 93–141; BP diastolic 47–79; PULSE 94–128; RESP 15–20; TEMP 36.6–37.4; O2SAT 88–99
[2021-05-02 00:34] LABS: Reflex Lactate? Lactic Acid Added
[2021-05-02 01:32] LABS: ~Lactic Acid-LAB USE ONLY 3.6 mmol/L (0.5-2.0)
--- NOTE | 2021-05-02 02:27 | PM.IMHP ---
History of Present Illness Date of Service: 05/02/21 Chief Complaint: Nausea/Vomiting 75-year-old female with a past medical history of hypertension, hyperlipidemia, diabetes, CKD, paroxysmal AFib-not on anticoagulation, vitamin B12 deficiency, hypothyroidism, dysphagia, GERD, osteoarthritis, residential resident, history of UTIs, history of aspiration pneumonia sent from the residential with a chief complaint of poor oral intake for the past few days and nausea/vomiting today; Patient is drowsy but able to follow simple commands and responds to verbal stimuli. Patient is a poor historian. Spoke to the [facility]-spoke to the nurse Garry's who mentioned that for past many days patient has not been eating and drinking well; today patient had few episodes of nausea and vomiting; denies any blood in the vomitus and appears weak in general; subsequently sent to the hospital for further management. Denies patient complaining of any chest pain lightheadedness or dizziness. Denies any falls. Reports that patient is on liquid diet and has poor oral intake. Review of all other systems is limited given patient appears confused and RN unable to provide much information. RN Garry at the rehab facility mentioned that patient has a most form from glucose of 90 nurses do not resuscitate do not intubate. Unable to provide me the information of the patient's healthcare proxy. I spoke to the patient's son Garry over the phone who mentioned that he was not informed about the patient being transferred to the hospital; and does not know anything about the patient's current history of presenting illness. After discussion with the patient's son he wants her mother to be full code. ER course: Per ER team patient unable to provide much information; patient has coarse breath sounds, rales and rhonchi; concern for aspiration pneumonia. Given antibiotics. Lab showed leukocytosis. Patient initially had soft blood pressure-improved with IV fluids. Admitted for further management. Also noted to be in JUAN. 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 Weakness Pertinent family history: reviewed Surgical History History of total replacement of right hip Social History Household Members: Unknown / Unable to assess Housing: Retirement Alcohol intake: never Patient Tobacco Use Status: Never used Tobacco service: No Meds Allergies Allergy/AdvReac Type Severity Reaction Status Date / Time ciprofloxacin [From CIPRO] Allergy Unknown UNKNOWN Verified 05/01/21 22:14 clarithromycin [From Biaxin] Allergy Unknown UNKNOWN Verified 05/01/21 22:14 Effexor Allergy Unknown Unknown Verified 05/01/21 22:14 Floxin Otic Allergy Unknown Unknown Verified 05/01/21 22:14 levofloxacin [From LEVAQUIN] Allergy Unknown UNKNOWN Verified 05/01/21 22:14 loratadine [From CLARITIN] Allergy Unknown UNKNOWN Verified 05/01/21 22:14 ofloxacin [From FLOXIN] Allergy Unknown UNKNOWN Verified 05/01/21 22:14 penicillin V Allergy Unknown Unknown Verified 05/01/21 22:14 Penicillins [PENICILLINS] Allergy Unknown UNKNOWN Verified 05/01/21 22:14 sertraline [Zoloft] Allergy Unknown Unknown Verified 05/01/21 22:14 Sulfa (Sulfonamide Allergy Unknown Unknown Verified 05/01/21 22:14 Antibiotics) sulfamethoxazole Allergy Unknown UNKNOWN Verified 05/01/21 22:14 [From BACTRIM] trimethoprim [From BACTRIM] Allergy Unknown UNKNOWN Verified 05/01/21 22:14 Active Medications: Current Medications Acetaminophen (Acetaminophen 325 Mg Tablet) 650 mg PO Q6H PRN PRN Reason: Pain, Mild (Pain Scale 1-3) Dextrose (Dextrose 50 % 25 Gm/50 Ml Vial) 25 gm IVPUSH Q15M PRN; Protocol PRN Reason: per Hypoglycemia Standing Ord. Glucose (Glucose Gel 15 Gm Gel..Gram.) 15 gm PO Q15M PRN; Protocol PRN Reason: per Hypoglycemia Standing Ord. Heparin Sodium (Porcine) (Heparin Sodium,Porcine 5,000 Unit/Ml Vial) 5,000 unit SUBCUT Q8H JINA Vancomycin HCl 1,000 mg/ (Sodium Chloride) 270 mls @ 270 mls/hr IV Q24H JINA Cefepime HCl 1 gm/ Sodium (Chloride) 50 mls @ 100 mls/hr IV Q24H [facility] Metronidazole (Flagyl) 500 mg in 100 mls @ 100 mls/hr IV Q8H [facility] Insulin Human Lispro (Insulin Lispro 100 Unit/Ml 3 Ml Vial) 0 unit SUBCUT QIDACHS [facility]; Protocol Melatonin (Melatonin 3 Mg Tablet) 6 mg PO BEDTIME PRN PRN Reason: Insomnia Pharmacy Consult (Consult Rx Vancomycin Dosing) 1 each MISCELLANE DAILY PRN PRN Reason: Consult order Senna (Sennosides 8.6 Mg Tablet) 17.2 mg PO BEDTIME PRN PRN Reason: Constipation Sodium Chloride (0.9 % Sodium Chloride Flush 3 Ml Syringe) 3 ml IVFLUSH QSHIFT [facility] Home Medications Medication Instructions Recorded Confirmed Last Taken Type benztropine 1 mg tablet 1 tab PO BID 03/08/21 05/02/21 Unknown History cetirizine 10 mg tablet 10 mg PO DAILY 03/08/21 05/02/21 Unknown History clonazepam 0.25 mg disintegrating 0.25 mg PO DAILY PRN 03/08/21 05/02/21 Unknown History tablet clonazepam 0.5 mg tablet 1 tab PO BEDTIME 03/08/21 05/02/21 Unknown History cyanocobalamin (vitamin B-12) 100 200 mcg PO DAILY 03/08/21 05/02/21 Unknown History mcg tablet enalapril maleate 5 mg tablet 5 mg PO DAILY 03/08/21 05/02/21 Unknown History (Vasotec) fentanyl 12 mcg/hr transdermal 1 patch TOPICAL Q3D 03/08/21 05/02/21 Unknown History patch fluoxetine 10 mg capsule 1 cap PO DAILY 03/08/21 05/02/21 Unknown History fluoxetine 20 mg capsule 2 cap PO QAM 03/08/21 05/02/21 Unknown History gabapentin 400 mg capsule 1 cap PO DAILY 03/08/21 05/02/21 Unknown History gabapentin 600 mg tablet 1 tab PO BID 03/08/21 05/02/21 Unknown History levothyroxine 75 mcg tablet 1 tab PO DAILY 03/08/21 05/02/21 Unknown History nitroglycerin 0.4 mg sublingual 0.4 mg SUBLINGUAL DIRECTED PRN 03/08/21 05/02/21 Unknown History tablet oxycodone 5 mg tablet 1 tab PO BID PRN 03/08/21 05/02/21 Unknown History pioglitazone 15 mg tablet (Actos) 15 mg PO DAILY 03/08/21 05/02/21 Unknown History ziprasidone HCl 20 mg capsule 20 mg PO BID 03/08/21 05/02/21 Unknown History (Abilio) Physical Exam Vital Signs and Narrative: Vital Signs: Last Vital Signs Temp 100.3 F 05/01/21 22:45 Pulse 121 H 05/02/21 01:59 Resp 20 05/02/21 01:59 BP 119/67 05/02/21 01:59 Pulse Ox 93 05/02/21 01:59 Body Mass Index 31.3 Gen: Appears be in no acute distress HEENT: NCAT, Moist mucosa. Pulmonary: coarse breath sounds, fair air entry CVS: Normal S1-S2 Abdomen: BS+, Soft, Nontender Extremities: Warm well perfused Neuro: Drowsy but easily arousable Results Labs CBC and Chem 7: 05/06/21 06:44 05/08/21 05:50 Labs: Laboratory Results - last 24 hr 05/01/21 05/01/21 05/01/21 22:31 22:31 22:32 MCV 104.8 H MCH 33.8 H MCHC 32.3 RDW 14.1 Plt Count 493 H D MPV 9.6 Immature Gran % (Auto) 0.8 H Neut % (Auto) 91.6 H Lymph % (Auto) 2.7 L [place] % (Auto) 4.7 Eos % (Auto) 0.0 Baso % (Auto) 0.2 Lymph # (Auto) 0.9 L [place] # (Auto) 1.6 H Eos # (Auto) 0.0 Baso # (Auto) 0.1 Abs Immat Gran (auto) 0.26 H Absolute Neuts (auto) 30.9 H Absolute Nucleated RBC 0.000 Nucleated RBC % (auto) 0.0 Smear Tech's Comments VERIFIED Anion Gap Estim Creat Clear Calc Estimated GFR Random Glucose Lactic Acid 3.8 H* Lactic Acid Fup @ 2Hr Calcium Troponin I High Sens 12.7 D Urine Color Urine Appearance Urine pH Ur Specific [place] Urine Protein Urine Glucose (UA) Urine Ketones Urine Blood Urine Nitrite Ur Leukocyte Esterase Urine RBC Urine WBC Ur Squamous Epith Cells Calcium Phosphate Cryst Urine Bacteria COVID-19 (IVANNA) COVID-19 Clin Com 05/01/21 05/01/21 05/01/21 22:35 22:47 22:53 MCV MCH MCHC RDW Plt Count MPV Immature Gran % (Auto) Neut % (Auto) Lymph % (Auto) [place] % (Auto) Eos % (Auto) Baso % (Auto) Lymph # (Auto) [place] # (Auto) Eos # (Auto) Baso # (Auto) Abs Immat Gran (auto) Absolute Neuts (auto) Absolute Nucleated RBC Nucleated RBC % (auto) Smear Tech's Comments Anion Gap 21 H Estim Creat Clear Calc 28.8 Estimated GFR 26 Random Glucose 332 H Lactic Acid Lactic Acid Fup @ 2Hr Calcium 9.2 Troponin I High Sens Urine Color YELLOW Urine Appearance CLEAR Urine pH 5.5 Ur Specific [place] 1.015 Urine Protein NEG Urine Glucose (UA) NEG Urine Ketones NEG Urine Blood NEG Urine Nitrite POS H Ur Leukocyte Esterase 1+ H Urine RBC 0 Urine WBC 10-14 H Ur Squamous Epith Cells 1+ Calcium Phosphate Cryst 1+ Urine Bacteria TRACE COVID-19 (IVANNA) Negative COVID-19 Clin Com See Note 05/02/21 01:03 MCV MCH MCHC RDW Plt Count MPV Immature Gran % (Auto) Neut % (Auto) Lymph % (Auto) [place] % (Auto) Eos % (Auto) Baso % (Auto) Lymph # (Auto) [place] # (Auto) Eos # (Auto) Baso # (Auto) Abs Immat Gran (auto) Absolute Neuts (auto) Absolute Nucleated RBC Nucleated RBC % (auto) Smear Tech's Comments Anion Gap Estim Creat Clear Calc Estimated GFR Random Glucose Lactic Acid Lactic Acid Fup @ 2Hr 3.6 H* Calcium Troponin I High Sens Urine Color Urine Appearance Urine pH Ur Specific [place] Urine Protein Urine Glucose (UA) Urine Ketones Urine Blood Urine Nitrite Ur Leukocyte Esterase Urine RBC Urine WBC Ur Squamous Epith Cells Calcium Phosphate Cryst Urine Bacteria COVID-19 (IVANNA) COVID-19 Clin Com Imaging Radiologist's Impressions: Impressions Chest X-Ray 05/02/21 00:35 IMPRESSION: Suspect developing infiltrate or aspiration in the right middle/lower lobes. Correlate clinically. Follow-up to ensure resolution. Assessment and Plan (1) Severe sepsis: Status: Acute (2) JUAN (acute kidney injury): Status: Acute (3) Lactic acid acidosis: Status: Acute (4) Type 2 diabetes mellitus: Status: Acute (5) Paroxysmal atrial fibrillation: Status: Acute 75-year-old female with a past medical history of hypertension, hyperlipidemia, diabetes, CKD, paroxysmal AFib-not on anticoagulation, vitamin B12 deficiency, hypothyroidism, dysphagia, GERD, osteoarthritis, residential resident, history of UTIs, history of aspiration pneumonia sent from the residential with a chief complaint of poor oral intake for the past few days and nausea/vomiting Concern for aspiration pneumonia. Admitted for further management. Altered mental status: Likely toxic metabolic encephalopathy in the setting of sepsis. Supportive care. Severe sepsis: Likely in the setting of UTI/PNA. Blood pressure improved with IV fluids. Will closely monitor vitals. UTI /Aspiration pneumonia: Will keep the patient on IV vancomycin, cefepime, IV Flagyl. Id consult. NPO Speech and swallow eval Follow-up cultures CT chest shows Bilateral consolidations, most prominently in the posterior right lower lobe, which may be secondary to aspiration and/or pneumonia in the proper clinical setting. pt on Suppl oxygen. Nausea/Vomiting: Ct abd shows partial SBO/Gall stones/Biliary sludge; pt had Bowel movement in the ER per RN. NPO; supportive care. General surgery consult JUAN: Likely prerenal. Avoid nephrotoxins. Hold home enalapril.Pharmacy to renally dose home meds. Hyperkalemia: Likely in the setting of JUAN. EKG showed no acute changes. Will repeat BMP. Lactic acidosis: In the setting of sepsis/dehydration. Patient on IV fluids. Repeat levels. Diabetes: Insulin sliding scale Hypothyroidism: Continue home levothyroxine Hypertension: Hold home antihypertensives Paroxysmal AFib: Patient on anticoagulation. P.r.n. metoprolol for tachycardia. History of bipolar/major depression: Continue home clonazepam to prevent withdrawals-> will reduce the dose to 0.5 mg at bedtime. Continue fluoxetine, ziprasidone Dysphagia: NPO for now. Speech and swallow eval. DVT prophylaxis: Subcu heparin Code status: Full code-discussed with the patient's son Garry over the phone. Off note: Patient had prior MOLST form from 2019 DNR/DNI. Will defer to the a.m. team to readdress with the patient's family again in the morning. Case management consult for healthcare proxy; [facility] unable to give info. pt's son reports he is the HCP. Quality Stroke Does the patient have a stroke diagnosis?: No VTE Prior VTE?: No VTE Risk Level:: Medical - moderate - high VTE Device Contraindication: Treatment Not Indicated VTE Drug Contraindication: N/A - Med Ordered
--- NOTE | 2021-05-02 03:08 | PC.NURSE ---
pt tried on room air from nonrebreather at 11l. pt desat to 88% and was placed on nc with sat in the 87% on 3l nc. fio2 increased to 5l. pt did not tolerate and was placed back onto nonrebreather at 11.
[2021-05-02 03:14] LABS: Reflex Lactate? 2 Y
[2021-05-02] MEDS: cefEPime HCl 1 GM in 0.9 % Sodium Chloride 50 ML IV (03:16)
[2021-05-02] MEDS: Heparin Sodium,Porcine 5,000 UNIT/ML VIAL 5000 UNIT SUBCUT ×3 (03:16→17:59)
[2021-05-02 03:33] LABS: Anion Gap 18 (12-20); Blood Urea Nitrogen 42 mg/dL (9-16); Calcium 8.5 mg/dL (8.4-10.2); Carbon Dioxide 20 mmol/L (22-29); Chloride 107 mmol/L (96-108); Creatinine Clr Calc Pharmacy 32.8; Estimated Glomerular Filt Rate 30; Glucose Random 321 mg/dL (60-115); Potassium 5.6 mmol/L (3.3-5.1); Sodium 139 mmol/L (135-145)
[2021-05-02] MEDS: metroNIDAZOLE/NS 500 MG/100 ML PIGGYBACK 100 MG IV (03:38)
[2021-05-02] MEDS: vancomycin HCL 1,250 MG in 0.9 % Sodium Chloride 250 ML 166.67 MG IV (03:38)
[2021-05-02 05:12] LABS: Reflex Lactate? Lactic Acid Added
[2021-05-02 06:06] LABS: Basophils Percent Auto 0.1 % (0-2); Hematocrit 43.4 % (37-47); Hemoglobin 13.9 g/dl (12.0-16.0); Imm Gran Abs Auto 0.23 X10*3/uL (0.00-0.03); Imm Gran Pct Auto 0.7 % (0.0-0.4); Lymphocytes Absolute Auto 1.4 X10*3/uL (1.2-4.9); Lymphocytes Percent Auto 4.2 % (20-40); MANUAL DIFF FLAG SCAN; Mean Corpuscular Hemoglobin 33.8 pg (27.0-33.0); Mean Corpuscular Volume 105.6 fL (80-98); Mean Platelet Volume 9.4 fL (9.4-12.3); Monocytes Absolute Auto 1.3 X10*3/uL (0.1-1.2); Monocytes Percent Auto 3.9 % (2-11); Neutrophils Absolute Auto 29.6 X10*3/uL (2.0-8.3); Neutrophils Percent Auto 91.1 % (45-73); Platelet Count 399 X10*3/uL (160-400); Red Blood Count 4.11 X10*6/uL (4.20-5.50); Red Cell Distribution Width 14.1 % (11.0-16.0); SCAN SMEAR FLAG 1
[2021-05-02 06:09] LABS: White Blood Count 32.5 X10*3/uL (4.8-10.8)
[2021-05-02 06:26] LABS: Anion Gap 16 (12-20); Blood Urea Nitrogen 41 mg/dL (9-16); Calcium 8.3 mg/dL (8.4-10.2); Carbon Dioxide 21 mmol/L (22-29); Chloride 107 mmol/L (96-108); Creatinine Clr Calc Pharmacy 34.4; Estimated Glomerular Filt Rate 32; Glucose Random 358 mg/dL (60-115); Potassium 5.5 mmol/L (3.3-5.1); Sodium 138 mmol/L (135-145)
--- NOTE | 2021-05-02 06:49 | PC.NURSE ---
pt sleepy no swallow eval at this time. will try later.
--- NOTE | 2021-05-02 07:31 | PC.NURSE ---
Assumed care of patient. Pt is in bed and appears to be resting comfortably at this time. Pt remains on oxygen via NRB. Pt is afebrile at this time, but remains tachycardic. Pt is NPO at this time until she gets a speech/swallow eval. Unable to give PO medications until then. Otherwise, pt is patiently waiting for a bed assignment .
[2021-05-02 10:51] LABS: Glucose, Whole Blood 328 mg/dL (60-115)
--- NOTE | 2021-05-02 11:28 | MHC.CM.PN ---
called and spoke with pts son cherelle who confirmed that pt is a lt resident on an bed hold at [facility] dc plan is for pt to retrun when dcd
--- NOTE | 2021-05-02 12:03 | PC.NURSE ---
Spoke to speech therapy who will be in around 2pm for evaluation. Pt remains NPO until that time. pt turned and incontinent care provided. Pt remains on oxygen via NRB at 10lpm.
--- NOTE | 2021-05-02 13:04 | PM.CNGS ---
History of Present Illness Consult details Consult date: 05/02/21 Narrative: 75-year-old female with multiple medical problems including chronic kidney disease, paroxysmal AFib, hypertension, who is a prison resident, for the ER last night because of poor oral intake. Her O2 sats were also noted to be very low. also was noted to have some nausea vomiting yesterday. The patient does not verbalize at this time and is not communicative. As per the notes from electronic health record, the patient apparently has had poor oral intake for several days already at the prison. She also had few episodes of nausea and vomiting yesterday. She apparently had a DNR DNI order in affect from the prison but the hospitalist discussed with the son who states that the patient should be on full code. Again, the patient is not communicative at this time so no other details is available. I have spoken to the nursing staff in the ER and there has been no episode of vomiting since she has been here. She appeared to have been comfortable although very drowsy full-time. Review of Systems Review of Systems: Unavailable at this time; details of the history is from records by the hospitalist and the ER staff [facility] Past Medical History Medical History (Updated 05/02/21 @ 13:09 by Min Alatorre MD) Abnormal CT of the abdomen Achalasia, esophageal Anxiety Bipolar 1 disorder CKD (chronic kidney disease) COPD (chronic obstructive pulmonary disease) Depression Difficulty in walking Dysphagia Gastro-esophageal reflux History of COVID-19 Hypertension Hypothyroidism Osteoarthritis Paroxysmal atrial fibrillation Polyneuropathy Type 2 diabetes mellitus Vitamin B12 deficiency 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 Weakness Surgical History Surgical History History of total replacement of right hip Social History Social History Housing: Shelter Alcohol intake: never Patient Tobacco Use Status: Never used Tobacco Use of substances other than those prescribed or required for medical reasons: No Advance Directives: No service: No Meds Allergies Allergy/AdvReac Type Severity Reaction Status Date / Time ciprofloxacin [From CIPRO] Allergy Unknown UNKNOWN Verified 05/01/21 22:14 clarithromycin [From Biaxin] Allergy Unknown UNKNOWN Verified 05/01/21 22:14 Effexor Allergy Unknown Unknown Verified 05/01/21 22:14 Floxin Otic Allergy Unknown Unknown Verified 05/01/21 22:14 levofloxacin [From LEVAQUIN] Allergy Unknown UNKNOWN Verified 05/01/21 22:14 loratadine [From CLARITIN] Allergy Unknown UNKNOWN Verified 05/01/21 22:14 ofloxacin [From FLOXIN] Allergy Unknown UNKNOWN Verified 05/01/21 22:14 penicillin V Allergy Unknown Unknown Verified 05/01/21 22:14 Penicillins [PENICILLINS] Allergy Unknown UNKNOWN Verified 05/01/21 22:14 sertraline [Zoloft] Allergy Unknown Unknown Verified 05/01/21 22:14 Sulfa (Sulfonamide Allergy Unknown Unknown Verified 05/01/21 22:14 Antibiotics) sulfamethoxazole Allergy Unknown UNKNOWN Verified 05/01/21 22:14 [From BACTRIM] trimethoprim [From BACTRIM] Allergy Unknown UNKNOWN Verified 05/01/21 22:14 Active Medications: Current Medications Acetaminophen (Acetaminophen 325 Mg Tablet) 650 mg PO Q6H PRN PRN Reason: Pain, Mild (Pain Scale 1-3) Benztropine Mesylate (Benztropine Mesylate 1 Mg Tablet) 1 mg PO BID [facility] Last Admin: 05/02/21 12:53 Dose: Not Given Documented by: Clonazepam (Clonazepam 0.5 Mg Tablet) 0.25 mg PO BEDTIME [facility] Cyanocobalamin (Cyanocobalamin (Vitamin B-12) 100 Mcg Tablet) 200 mcg PO DAILY [facility] Last Admin: 05/02/21 12:53 Dose: Not Given Documented by: Dextrose (Dextrose 50 % 25 Gm/50 Ml Vial) 25 gm IVPUSH Q15M PRN; Protocol PRN Reason: per Hypoglycemia Standing Ord. Fluoxetine HCl (Fluoxetine Hcl 10 Mg Capsule) 10 mg PO DAILY [facility] Last Admin: 05/02/21 12:53 Dose: Not Given Documented by: Fluoxetine HCl (Fluoxetine Hcl 20 Mg Capsule) 40 mg PO DAILY [facility] Last Admin: 05/02/21 12:53 Dose: Not Given Documented by: Gabapentin (Gabapentin 400 Mg Capsule) 400 mg PO DAILY [facility] Last Admin: 05/02/21 12:53 Dose: Not Given Documented by: Gabapentin (Gabapentin 600 Mg Tablet) 600 mg PO BID [facility] Last Admin: 05/02/21 12:53 Dose: Not Given Documented by: Glucose (Glucose Gel 15 Gm Gel..Gram.) 15 gm PO Q15M PRN; Protocol PRN Reason: per Hypoglycemia Standing Ord. Heparin Sodium (Porcine) (Heparin Sodium,Porcine 5,000 Unit/Ml Vial) 5,000 unit SUBCUT Q8H [facility] Last Admin: 05/02/21 03:16 Dose: 5,000 unit Documented by: Cefepime HCl 1 gm/ Sodium (Chloride) 50 mls @ 100 mls/hr IV Q24H [facility] Last Infusion: 05/02/21 05:26 Dose: Infused Documented by: Vancomycin HCl 1,000 mg/ (Sodium Chloride) 270 mls @ 270 mls/hr IV Q24H [facility] Insulin Human Lispro (Insulin Lispro 100 Unit/Ml 3 Ml Vial) 0 unit SUBCUT QIDACHS [facility]; Protocol Last Admin: 05/02/21 12:53 Dose: Not Given Documented by: Levothyroxine Sodium (Levothyroxine Sodium 75 Mcg Tablet) 75 mcg PO DAILY@0600 [facility] Last Admin: 05/02/21 08:40 Dose: Not Given Documented by: Loratadine (Loratadine 10 Mg Tablet) 10 mg PO DAILY [facility] Last Admin: 05/02/21 12:54 Dose: Not Given Documented by: Melatonin (Melatonin 3 Mg Tablet) 6 mg PO BEDTIME PRN PRN Reason: Insomnia Nitroglycerin (Nitroglycerin 0.4 Mg Tab.Subl) 0.4 mg SUBLINGUAL Q5MX3 PRN PRN Reason: Chest Pain Omeprazole (Omeprazole 40 Mg Capsule.Dr) 40 mg PO DAILY@0630 [facility] Last Admin: 05/02/21 08:40 Dose: Not Given Documented by: Pharmacy Consult (Consult Rx Vancomycin Dosing) 1 each MISCELLANE DAILY PRN PRN Reason: Consult order Pharmacy Consult (Consult Rx Vancomycin Dosing) 1 each MISCELLANE DAILY PRN PRN Reason: Consult order Senna (Sennosides 8.6 Mg Tablet) 17.2 mg PO BEDTIME PRN PRN Reason: Constipation Sodium Chloride (0.9 % Sodium Chloride Flush 3 Ml Syringe) 3 ml IVFLUSH QSHIFT [facility] Last Admin: 05/02/21 07:34 Dose: Not Given Documented by: Ziprasidone (Ziprasidone 20 Mg Capsule) 20 mg PO BID [facility] Last Admin: 05/02/21 12:54 Dose: Not Given Documented by: Home Medications Medication Instructions Recorded Confirmed Last Taken Type benztropine 1 mg tablet 1 tab PO BID 03/08/21 05/02/21 Unknown History cetirizine 10 mg tablet 10 mg PO DAILY 03/08/21 05/02/21 Unknown History clonazepam 0.25 mg disintegrating 0.25 mg PO DAILY PRN 03/08/21 05/02/21 Unknown History tablet clonazepam 0.5 mg tablet 1 tab PO BEDTIME 03/08/21 05/02/21 Unknown History cyanocobalamin (vitamin B-12) 100 200 mcg PO DAILY 03/08/21 05/02/21 Unknown History mcg tablet enalapril maleate 5 mg tablet 5 mg PO DAILY 03/08/21 05/02/21 Unknown History (Vasotec) fentanyl 12 mcg/hr transdermal 1 patch TOPICAL Q3D 03/08/21 05/02/21 Unknown History patch fluoxetine 10 mg capsule 1 cap PO DAILY 03/08/21 05/02/21 Unknown History fluoxetine 20 mg capsule 2 cap PO QAM 03/08/21 05/02/21 Unknown History gabapentin 400 mg capsule 1 cap PO DAILY 03/08/21 05/02/21 Unknown History gabapentin 600 mg tablet 1 tab PO BID 03/08/21 05/02/21 Unknown History levothyroxine 75 mcg tablet 1 tab PO DAILY 03/08/21 05/02/21 Unknown History nitroglycerin 0.4 mg sublingual 0.4 mg SUBLINGUAL DIRECTED PRN 03/08/21 05/02/21 Unknown History tablet oxycodone 5 mg tablet 1 tab PO BID PRN 03/08/21 05/02/21 Unknown History pioglitazone 15 mg tablet (Actos) 15 mg PO DAILY 03/08/21 05/02/21 Unknown History ziprasidone HCl 20 mg capsule 20 mg PO BID 03/08/21 05/02/21 Unknown History (Abilio) Physical Exam Vital Signs: Vital Signs: Last Vital Signs Temp 98.4 F 05/02/21 07:27 Pulse 118 H 05/02/21 12:02 Resp 15 05/02/21 12:02 BP 111/57 L 05/02/21 12:02 Pulse Ox 96 05/02/21 12:02 Body Mass Index 31.3 Const: Other: Very drowsy but not in distress, is on O2 by face mask Resp: Effort & Inspection: normal respiratory effort Cardio: Other: Irregular rhythm GI: Other: Not distended, no apparent tenderness even with deep palpation Palpation (GI): Soft to palpation, not firm, nontender, no guarding and not rigid Results Labs Result diagrams: 05/02/21 06:01 05/02/21 06:01 Labs: Abnormal lab results 05/01/21 05/01/21 05/01/21 Range/Units 22:31 22:32 22:47 WBC 33.7 H* (4.8-10.8) X10*3/uL RBC (4.20-5.50) X10*6/uL MCV 104.8 H (80-98) fL MCH 33.8 H (27.0-33.0) pg Plt Count 493 H D (160-400) X10*3/uL Immature Gran % (Auto) 0.8 H (0.0-0.4) % Neut % (Auto) 91.6 H (45-73) % Lymph % (Auto) 2.7 L (20-40) % Lymph # (Auto) 0.9 L (1.2-4.9) X10*3/uL [place] # (Auto) 1.6 H (0.1-1.2) X10*3/uL Abs Immat Gran (auto) 0.26 H (0.00-0.03) X10*3/uL Absolute Neuts (auto) 30.9 H (2.0-8.3) X10*3/uL Potassium 5.6 H D (3.3-5.1) mmol/L Carbon Dioxide 19 L (22-29) mmol/L Anion Gap 21 H (12-20) BUN 44 H D (9-16) mg/dL Creatinine 1.89 H (0.5-1.4) mg/dL POC Glucose (60-115) mg/dL Random Glucose 332 H (60-115) mg/dL Lactic Acid 3.8 H* (0.5-2.0) mmol/L Lactic Acid Fup @ 2Hr (0.5-2.0) mmol/L Calcium (8.4-10.2) mg/dL Urine Nitrite (NEG) Ur Leukocyte Esterase (NEG) Urine WBC (0-4) /HPF 05/01/21 05/02/21 05/02/21 Range/Units 22:53 01:03 03:06 WBC (4.8-10.8) X10*3/uL RBC (4.20-5.50) X10*6/uL MCV (80-98) fL MCH (27.0-33.0) pg Plt Count (160-400) X10*3/uL Immature Gran % (Auto) (0.0-0.4) % Neut % (Auto) (45-73) % Lymph % (Auto) (20-40) % Lymph # (Auto) (1.2-4.9) X10*3/uL [place] # (Auto) (0.1-1.2) X10*3/uL Abs Immat Gran (auto) (0.00-0.03) X10*3/uL Absolute Neuts (auto) (2.0-8.3) X10*3/uL Potassium 5.6 H (3.3-5.1) mmol/L Carbon Dioxide 20 L (22-29) mmol/L Anion Gap (12-20) BUN 42 H (9-16) mg/dL Creatinine 1.66 H (0.5-1.4) mg/dL POC Glucose (60-115) mg/dL Random Glucose 321 H (60-115) mg/dL Lactic Acid (0.5-2.0) mmol/L Lactic Acid Fup @ 2Hr 3.6 H* (0.5-2.0) mmol/L Calcium (8.4-10.2) mg/dL Urine Nitrite POS H (NEG) Ur Leukocyte Esterase 1+ H (NEG) Urine WBC 10-14 H (0-4) /HPF 05/02/21 05/02/21 05/02/21 Range/Units 03:06 06:01 06:01 WBC 32.5 H* (4.8-10.8) X10*3/uL RBC 4.11 L (4.20-5.50) X10*6/uL MCV 105.6 H (80-98) fL MCH 33.8 H (27.0-33.0) pg Plt Count (160-400) X10*3/uL Immature Gran % (Auto) 0.7 H (0.0-0.4) % Neut % (Auto) 91.1 H (45-73) % Lymph % (Auto) 4.2 L (20-40) % Lymph # (Auto) (1.2-4.9) X10*3/uL [place] # (Auto) 1.3 H (0.1-1.2) X10*3/uL Abs Immat Gran (auto) 0.23 H (0.00-0.03) X10*3/uL Absolute Neuts (auto) 29.6 H (2.0-8.3) X10*3/uL Potassium 5.5 H (3.3-5.1) mmol/L Carbon Dioxide 21 L (22-29) mmol/L Anion Gap (12-20) BUN 41 H (9-16) mg/dL Creatinine 1.58 H (0.5-1.4) mg/dL POC Glucose (60-115) mg/dL Random Glucose 358 H* (60-115) mg/dL Lactic Acid 3.0 H* (0.5-2.0) mmol/L Lactic Acid Fup @ 2Hr (0.5-2.0) mmol/L Calcium 8.3 L (8.4-10.2) mg/dL Urine Nitrite (NEG) Ur Leukocyte Esterase (NEG) Urine WBC (0-4) /HPF 05/02/21 Range/Units 07:34 WBC (4.8-10.8) X10*3/uL RBC (4.20-5.50) X10*6/uL MCV (80-98) fL MCH (27.0-33.0) pg Plt Count (160-400) X10*3/uL Immature Gran % (Auto) (0.0-0.4) % Neut % (Auto) (45-73) % Lymph % (Auto) (20-40) % Lymph # (Auto) (1.2-4.9) X10*3/uL [place] # (Auto) (0.1-1.2) X10*3/uL Abs Immat Gran (auto) (0.00-0.03) X10*3/uL Absolute Neuts (auto) (2.0-8.3) X10*3/uL Potassium (3.3-5.1) mmol/L Carbon Dioxide (22-29) mmol/L Anion Gap (12-20) BUN (9-16) mg/dL Creatinine (0.5-1.4) mg/dL POC Glucose 328 H (60-115) mg/dL Random Glucose (60-115) mg/dL Lactic Acid (0.5-2.0) mmol/L Lactic Acid Fup @ 2Hr (0.5-2.0) mmol/L Calcium (8.4-10.2) mg/dL Urine Nitrite (NEG) Ur Leukocyte Esterase (NEG) Urine WBC (0-4) /HPF Short CBC 05/01/21 05/02/21 Range/Units 22:31 06:01 WBC 33.7 H* 32.5 H* (4.8-10.8) X10*3/uL Hgb 14.9 D 13.9 (12.0-16.0) g/dl Hct 46.2 D 43.4 (37-47) % Plt Count 493 H D 399 (160-400) X10*3/uL BMP 05/01/21 05/02/21 05/02/21 22:47 03:06 06:01 Sodium 136 139 138 Potassium 5.6 H D 5.6 H 5.5 H Chloride 102 107 107 Carbon Dioxide 19 L 20 L 21 L BUN 44 H D 42 H 41 H Creatinine 1.89 H 1.66 H 1.58 H Calcium 9.2 8.5 D 8.3 L Urine 05/01/21 Range/Units 22:53 Urine Color YELLOW Urine Appearance CLEAR Urine pH 5.5 (5.0-8.0) Ur Specific [place] 1.015 (1.005-1.025) Urine Protein NEG (NEG-TRACE) MG/DL Urine Glucose (UA) NEG (NEG) MG/DL All other labs normal. Imaging Abdomen CT scan report/results: report reviewed and image reviewed CT scan - pelvis: report reviewed and image reviewed Assessment and Plan (1) Abnormal CT of the abdomen: Status: Acute [age] year female with multiple medical problems, admitted for low O2 sats, poor [facility] from the prison. She was also reported to have vomiting. She underwent a CT scan which showed dilated small bowel loops. I have reviewed this and there is no obvious transition zone. Furthermore, she has good amount of air distally including the colon and rectum. I would favor ileus rather than obstruction at this point. She does have some heavy stool volume in the rectum so she may benefit from enemas and stool softeners. Her abdominal exam is very benign. She is not distended and does not have any apparent tenderness. I will follow along while she is in the hospital. She has currently to be treated for bilateral pneumonia. She also has poor baseline performance status. Procedures Date of Service Date of Service: 05/02/21
--- NOTE | 2021-05-02 14:35 | P.EN_ITS ---
Documented by User: Susan Lundberg NP 05/02/21 14:46 Event Note Date of Service: 05/02/21 Event Note: 75-year-old female with a past medical history of hypertension, hyperlipidemia, diabetes, CKD, paroxysmal AFib-not on anticoagulation, vitamin B12 deficiency, hypothyroidism, dysphagia, GERD, osteoarthritis, skilled nursing resident, history of UTIs, history of aspiration pneumonia sent from the skilled nursing with a chief complaint of poor oral intake for the past few days and nause a/vomiting Concern for aspiration pneumonia.? Admitted for further management. Toxic metabolic encephalopathy. secondary to severe sepsis. Supportive care. Severe sepsis. tachycardia, leukocytosis, lactic acidosis Likely in the setting of UTI/PNA.? Blood pressure improved with IV fluids.? follow cx UTI /Aspiration pneumonia. CT chest shows?Bilateral consolidations, most prominently in the posterior right lower lobe, which may be secondary to aspiration and/or pneumonia in the proper clinical setting. Will keep the patient on IV vancomycin, cefepime. Id consult. NPO Speech and swallow eval Follow-up cultures pt on Suppl oxygen. Nausea/Vomiting Ct abd shows partial SBO/Gall stones/Biliary sludge, No SBO according to general surgery team Keep NPO for now d/t dysphagia JUAN. Likely prerenal.? Avoid nephrotoxins.? Hold home enalapril. Hyperkalemia. Likely in the setting of JUAN.? EKG showed no acute changes.? Will repeat BMP. Diabetes Insulin sliding scale NPO for now Hypothyroidism. Continue home levothyroxine Hypertension Hold home antihypertensives d/t hypotension Paroxysmal AFib Patient on anticoagulation.? P.r.n. metoprolol for tachycardia. History of bipolar/major depression Continue home clonazepam? Continue fluoxetine, ziprasidone Dysphagia NPO for now.? Speech and swallow eval. DVT prophylaxis:? Subcu heparin Attending Dr. Li Code status:? Full code-discussed with the patient's son Garry over the phone. Previous DNR on [facility] Documented by User: Christian Li MD 05/02/21 16:27 Event Note Date of Service: 05/02/21 Event Note: 75-year-old female with a past medical history of hypertension, hyperlipidemia, diabetes, CKD, paroxysmal AFib-not on anticoagulation, vitamin B12 deficiency, hypothyroidism, dysphagia, GERD, osteoarthritis, skilled nursing resident, history of UTIs, history of aspiration pneumonia sent from the skilled nursing with a chief complaint of poor oral intake for the past few days and nausea/vomiting Concern for aspiration pneumonia.? Admitted for further management. Toxic metabolic encephalopathy. secondary to severe sepsis. Supportive care. Severe sepsis. tachycardia, leukocytosis, lactic acidosis Likely in the setting of UTI/PNA.? Blood pressure improved with IV fluids.? follow cx UTI /Aspiration pneumonia. CT chest shows?Bilateral consolidations, most prominently in the posterior right lower lobe, which may be secondary to aspiration and/or pneumonia in the proper clinical setting. Will keep the patient on IV vancomycin, cefepime. Id consult. NPO Speech and swallow eval Follow-up cultures pt on Suppl oxygen. Nausea/Vomiting Ct abd shows partial SBO/Gall stones/Biliary sludge, No SBO according to general surgery team Keep NPO for now d/t dysphagia JUAN. Likely prerenal.? Avoid nephrotoxins.? Hold home enalapril. Hyperkalemia. Likely in the setting of JUAN.? EKG showed no acute changes.? Will repeat BMP. Diabetes Insulin sliding scale NPO for now Hypothyroidism. Continue home levothyroxine Hypertension Hold home antihypertensives d/t hypotension Paroxysmal AFib Patient on anticoagulation.? P.r.n. metoprolol for tachycardia. History of bipolar/major depression Continue home clonazepam? Continue fluoxetine, ziprasidone Dysphagia NPO for now.? Speech and swallow eval. DVT prophylaxis:? Subcu heparin Attending Dr. Li Code status:? Full code-discussed with the patient's son Garry over the phone. Previous DNR on [facility] [place] I saw and evaluated the patient and discussed the care with Susan Lundberg above on (date). I agree with the findings and plan as documented in the note above. Due extremely high WBC I recommend checking Cdif if there diarrhea - ?
[2021-05-02] MEDS: 0.9 % Sodium Chloride 1,000 ML 75 ML IVCONT (14:56)
--- NOTE | 2021-05-02 15:48 | PC.NURSE ---
Speech is at the bedside for swallow eval. Pt is awake, alert and requesting water for complaints of thirst.
--- NOTE | 2021-05-02 17:25 | MHC.SL.SWA ---
Speech Pathologist Impression: Risk of Aspiration Oralpharyngeal Dysphagia Risk of Aspiration Due to: Poor PO Intake Dysphasia Diet Status: Upgrade Liquid Consistency and Strategies for Safe Swallow: Liquid Intake Recommendation: [place] Thick Liquid Intake Strategies: Small Sips No Straws Solid Food Consistency: Dietary Recommendations: Pureed (NDD1) Additional Modifications to Solid Foods: Oral Medication Intake: Crushed with Puree Compensatory Strategies and Precautions to be Taken for Safe Swallow: aspiration precautions, strict total assistance with all PO intake. HOLD PO if pt becomes lethargic or demonstrates overt s/s aspiration during PO intake. Supervision While Eating and Drinking for Safe Swallow: Total Assistance Swallowing Recommended Treatments: Compens. Strategy Educat. Recommendation for Speech: Inpatient Speech Therapy Updated with RN and DIGESTER re: evaluation results and recommendation for: NDD1 PUREED solids, NECTAR THICK liquids via small, single cup sips (NO STRAWS), MEDS CRUSHED in puree, aspiration precautions, and 1:1 total assistance with feeding. PO should be held if pt is lethargic or demonstrates overt s/s aspiration. BACK WEDGER will continue to follow pt. Aquaculture Farm Manager Clinican/Clinical Fellow: No Supervisory Statement: I have reviewed and agree with the student/clinical fellow's documentation: N/A Speech Language Pathologist: Celestina Kahn M.A., CCC-BACK WEDGER
--- NOTE | 2021-05-02 17:26 | PC.NURSE ---
Pt was evaluated by speech therapy who recommends pureed diet, nectar thick liquids, crushed medications and 1:1 assist with meals.
[2021-05-02] MEDS: Acetaminophen 325 MG TABLET 650 MG PO (17:59)
[2021-05-02 18:03] LABS: Glucose, Whole Blood 235 mg/dL (60-115)
--- NOTE | 2021-05-02 18:26 | PC.NURSE ---
Spo2 dropped to 88% while on oxygen via [place] at 4lp. Pt Titrated to a venti mask at 55% Fio2.
[2021-05-02 20:05] LABS: Glucose, Whole Blood 241 mg/dL (60-115)
[2021-05-02] MEDS: Insulin Lispro 100 UNIT/ML 3 ML VIAL SUBCUT (20:55)
[2021-05-02] MEDS: clonazePAM 0.5 MG TABLET 0.25 MG PO (20:55)
[2021-05-02] MEDS: Benztropine Mesylate 1 MG TABLET PO (20:56)
[2021-05-02] MEDS: Gabapentin 600 MG TABLET PO (20:56)
--- NOTE | 2021-05-02 21:51 | PC.NURSE ---
insulin coverage given late too early for the next dose.
[2021-05-02] MEDS: Ziprasidone 20 MG CAPSULE PO (22:08)
--- NOTE | 2021-05-02 22:59 | P.CNID_ITS ---
History of Present Illness Data of Consult Service Date: 05/02/21 Requesting physician: Christian Li Primary Care Provider: MD DEVIKA Roblero Reason for consult: shortness of breath She presents from facility with shortness of breath. She has respiratory failure and is on NRB. She is unable to communicate at this time. 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 Weakness Family History Family history: reviewed and not pertinent Surgical History Surgical History History of total replacement of right hip Social History Social History Household Members: Unknown / Unable to assess Housing: Retirement Alcohol intake: never Patient Tobacco Use Status: Never used Tobacco service: No Meds Allergies Allergy/AdvReac Type Severity Reaction Status Date / Time ciprofloxacin [From CIPRO] Allergy Unknown UNKNOWN Verified 05/01/21 22:14 clarithromycin [From Biaxin] Allergy Unknown UNKNOWN Verified 05/01/21 22:14 Effexor Allergy Unknown Unknown Verified 05/01/21 22:14 Floxin Otic Allergy Unknown Unknown Verified 05/01/21 22:14 levofloxacin [From LEVAQUIN] Allergy Unknown UNKNOWN Verified 05/01/21 22:14 loratadine [From CLARITIN] Allergy Unknown UNKNOWN Verified 05/01/21 22:14 ofloxacin [From FLOXIN] Allergy Unknown UNKNOWN Verified 05/01/21 22:14 penicillin V Allergy Unknown Unknown Verified 05/01/21 22:14 Penicillins [PENICILLINS] Allergy Unknown UNKNOWN Verified 05/01/21 22:14 sertraline [Zoloft] Allergy Unknown Unknown Verified 05/01/21 22:14 Sulfa (Sulfonamide Allergy Unknown Unknown Verified 05/01/21 22:14 Antibiotics) sulfamethoxazole Allergy Unknown UNKNOWN Verified 05/01/21 22:14 [From BACTRIM] trimethoprim [From BACTRIM] Allergy Unknown UNKNOWN Verified 05/01/21 22:14 Active Medications: Current Medications Acetaminophen (Acetaminophen 325 Mg Tablet) 650 mg PO Q6H PRN PRN Reason: Pain, Mild (Pain Scale 1-3) Last Admin: 05/02/21 17:59 Dose: 650 mg Documented by: Benztropine Mesylate (Benztropine Mesylate 1 Mg Tablet) 1 mg PO BID [facility] Last Admin: 05/02/21 20:56 Dose: 1 mg Documented by: Clonazepam (Clonazepam 0.5 Mg Tablet) 0.25 mg PO BEDTIME [facility] Last Admin: 05/02/21 20:55 Dose: 0.25 mg Documented by: Cyanocobalamin (Cyanocobalamin (Vitamin B-12) 100 Mcg Tablet) 200 mcg PO DAILY [facility] Last Admin: 05/02/21 12:53 Dose: Not Given Documented by: Dextrose (Dextrose 50 % 25 Gm/50 Ml Vial) 25 gm IVPUSH Q15M PRN; Protocol PRN Reason: per Hypoglycemia Standing Ord. Fluoxetine HCl (Fluoxetine Hcl 10 Mg Capsule) 10 mg PO DAILY [facility] Last Admin: 05/02/21 12:53 Dose: Not Given Documented by: Fluoxetine HCl (Fluoxetine Hcl 20 Mg Capsule) 40 mg PO DAILY [facility] Last Admin: 05/02/21 12:53 Dose: Not Given Documented by: Gabapentin (Gabapentin 400 Mg Capsule) 400 mg PO DAILY [facility] Last Admin: 05/02/21 12:53 Dose: Not Given Documented by: Gabapentin (Gabapentin 600 Mg Tablet) 600 mg PO BID [facility] Last Admin: 05/02/21 20:56 Dose: 600 mg Documented by: Glucose (Glucose Gel 15 Gm Gel..Gram.) 15 gm PO Q15M PRN; Protocol PRN Reason: per Hypoglycemia Standing Ord. Heparin Sodium (Porcine) (Heparin Sodium,Porcine 5,000 Unit/Ml Vial) 5,000 unit SUBCUT Q8H [facility] Last Admin: 05/02/21 17:59 Dose: 5,000 unit Documented by: Cefepime HCl 1 gm/ Sodium (Chloride) 50 mls @ 100 mls/hr IV Q24H [facility] Last Infusion: 05/02/21 05:26 Dose: Infused Documented by: Vancomycin HCl 1,000 mg/ (Sodium Chloride) 270 mls @ 270 mls/hr IV Q24H [facility] Sodium Chloride (Ns) 1,000 mls @ 75 mls/hr IVCONT .[id number] [facility] Last Admin: 05/02/21 14:56 Dose: 75 mls/hr Documented by: Insulin Human Lispro (Insulin Lispro 100 Unit/Ml 3 Ml Vial) 0 unit SUBCUT QIDACHS [facility]; Protocol Last Admin: 05/02/21 21:50 Dose: Not Given Documented by: Levothyroxine Sodium (Levothyroxine Sodium 75 Mcg Tablet) 75 mcg PO DAILY@0600 [facility] Last Admin: 05/02/21 08:40 Dose: Not Given Documented by: Loratadine (Loratadine 10 Mg Tablet) 10 mg PO DAILY [facility] Last Admin: 05/02/21 12:54 Dose: Not Given Documented by: Melatonin (Melatonin 3 Mg Tablet) 6 mg PO BEDTIME PRN PRN Reason: Insomnia Nitroglycerin (Nitroglycerin 0.4 Mg Tab.Subl) 0.4 mg SUBLINGUAL Q5MX3 PRN PRN Reason: Chest Pain Omeprazole (Omeprazole 40 Mg Capsule.Dr) 40 mg PO DAILY@0630 [facility] Last Admin: 05/02/21 08:40 Dose: Not Given Documented by: Pharmacy Consult (Consult Rx Vancomycin Dosing) 1 each MISCELLANE DAILY PRN PRN Reason: Consult order Pharmacy Consult (Consult Rx Vancomycin Dosing) 1 each MISCELLANE DAILY PRN PRN Reason: Consult order Senna (Sennosides 8.6 Mg Tablet) 17.2 mg PO BEDTIME PRN PRN Reason: Constipation Sodium Chloride (0.9 % Sodium Chloride Flush 3 Ml Syringe) 3 ml IVFLUSH QSHIFT [facility] Last Admin: 05/02/21 14:58 Dose: Not Given Documented by: Ziprasidone (Ziprasidone 20 Mg Capsule) 20 mg PO BID [facility] Last Admin: 05/02/21 22:08 Dose: 20 mg Documented by: Home Medications Medication Instructions Recorded Confirmed Last Taken Type benztropine 1 mg tablet 1 tab PO BID 03/08/21 05/02/21 Unknown History cetirizine 10 mg tablet 10 mg PO DAILY 03/08/21 05/02/21 Unknown History clonazepam 0.25 mg disintegrating 0.25 mg PO DAILY PRN 03/08/21 05/02/21 Unknown History tablet clonazepam 0.5 mg tablet 1 tab PO BEDTIME 03/08/21 05/02/21 Unknown History cyanocobalamin (vitamin B-12) 100 200 mcg PO DAILY 03/08/21 05/02/21 Unknown History mcg tablet enalapril maleate 5 mg tablet 5 mg PO DAILY 03/08/21 05/02/21 Unknown History (Vasotec) fentanyl 12 mcg/hr transdermal 1 patch TOPICAL Q3D 03/08/21 05/02/21 Unknown History patch fluoxetine 10 mg capsule 1 cap PO DAILY 03/08/21 05/02/21 Unknown History fluoxetine 20 mg capsule 2 cap PO QAM 03/08/21 05/02/21 Unknown History gabapentin 400 mg capsule 1 cap PO DAILY 03/08/21 05/02/21 Unknown History gabapentin 600 mg tablet 1 tab PO BID 03/08/21 05/02/21 Unknown History levothyroxine 75 mcg tablet 1 tab PO DAILY 03/08/21 05/02/21 Unknown History nitroglycerin 0.4 mg sublingual 0.4 mg SUBLINGUAL DIRECTED PRN 03/08/21 05/02/21 Unknown History tablet oxycodone 5 mg tablet 1 tab PO BID PRN 03/08/21 05/02/21 Unknown History pioglitazone 15 mg tablet (Actos) 15 mg PO DAILY 03/08/21 05/02/21 Unknown History ziprasidone HCl 20 mg capsule 20 mg PO BID 03/08/21 05/02/21 Unknown History (Abilio) Physical Exam Vital Signs: Vital Signs: Last Vital Signs Temp 99.4 F 05/02/21 17:35 Pulse 124 H 05/02/21 22:11 Resp 17 05/02/21 21:07 BP 118/73 05/02/21 22:11 Pulse Ox 95 05/02/21 22:11 Body Mass Index 31.3 Const: General: cooperative HENMT: Head: Yes normal to inspection Mouth: mucous membranes dry Resp: Effort & Inspection: labored Cardio: Rate: regular rate Rhythm: regular rhythm GI: Palpation (GI): Soft to palpation and nontender Skin: General skin exam: no rashes or lesions noted Results Labs CBC & Chem 7: 05/06/21 06:44 05/08/21 05:50 Labs: Short CBC 05/02/21 Range/Units 06:01 WBC 32.5 H* (4.8-10.8) X10*3/uL Hgb 13.9 (12.0-16.0) g/dl Hct 43.4 (37-47) % Plt Count 399 (160-400) X10*3/uL BMP 05/01/21 05/02/21 05/02/21 22:47 03:06 06:01 Sodium 136 139 138 Potassium 5.6 H D 5.6 H 5.5 H Chloride 102 107 107 Carbon Dioxide 19 L 20 L 21 L BUN 44 H D 42 H 41 H Creatinine 1.89 H 1.66 H 1.58 H Calcium 9.2 8.5 D 8.3 L Urine 05/01/21 Range/Units 22:53 Urine Color YELLOW Urine Appearance CLEAR Urine pH 5.5 (5.0-8.0) Ur Specific [place] 1.015 (1.005-1.025) Urine Protein NEG (NEG-TRACE) MG/DL Urine Glucose (UA) NEG (NEG) MG/DL Assessment and Plan (1) Bilateral pneumonia: Status: Resolved She has aspiration concerns She has possible gram negative and gram positive Suggest Agree with current antibiotics Cefepime and Vancomycin,total 5-7 days Prognosis guarded. (2) Hypoxia: Status: Resolved
[2021-05-03] VITALS (10 sets, daily range): BP systolic 106–143; BP diastolic 58–101; PULSE 70–140; RESP 16–22; TEMP 36.3–37.1; O2SAT 90–99
[2021-05-03] MEDS: Heparin Sodium,Porcine 5,000 UNIT/ML VIAL 5000 UNIT SUBCUT ×2 (02:24→20:31)
[2021-05-03] MEDS: cefEPime HCl 1 GM in 0.9 % Sodium Chloride 50 ML IV (02:30)
[2021-05-03] MEDS: vancomycin HCL 1,000 MG in 0.9 % Sodium Chloride 250 ML 270 MG IV (03:23)
[2021-05-03] MEDS: 0.9 % Sodium Chloride 1,000 ML 75 ML IVCONT ×2 (04:30→18:37)
[2021-05-03] MEDS: Levothyroxine Sodium 75 MCG TABLET PO (06:32)
[2021-05-03 06:51] LABS: Hematocrit 38.5 % (37.0-47.0); Hemoglobin 12.1 g/dl (12.0-16.0); Mean Corpuscular HGB Conc 31.4 g/dl (31.0-35.0); Mean Corpuscular Hemoglobin 33.1 pg (27.0-33.0); Mean Corpuscular Volume 105.2 fL (80.0-98.0); Mean Platelet Volume 9.8 fL (9.4-12.3); Platelet Count 377 X10*3/uL (160-400); Red Blood Count 3.66 X10*6/uL (4.20-5.50); Red Cell Distribution Width 14.4 % (11.0-16.0); White Blood Count 19.8 X10*3/uL (4.8-10.8)
[2021-05-03 07:07] LABS: Anion Gap 17 (12-20); Blood Urea Nitrogen 38 mg/dL (9-16); Carbon Dioxide 19 mmol/L (22-29); Chloride 114 mmol/L (96-108); Creatinine Clr Calc Pharmacy 47.3; Estimated Glomerular Filt Rate 46; Glucose Random 208 mg/dL (60-115); Potassium 4.8 mmol/L (3.3-5.1); Sodium 145 mmol/L (135-145)
[2021-05-03 08:01] LABS: Glucose, Whole Blood 180 mg/dL (60-115)
[2021-05-03] MEDS: Insulin Lispro 100 UNIT/ML 3 ML VIAL SUBCUT ×2 (08:16→22:32)
[2021-05-03] MEDS: FLUoxetine HCl 10 MG CAPSULE PO (08:17)
[2021-05-03] MEDS: Benztropine Mesylate 1 MG TABLET PO ×2 (08:17→20:30)
[2021-05-03] MEDS: Cyanocobalamin (Vitamin B-12) 100 MCG TABLET 200 MCG PO (08:17)
[2021-05-03] MEDS: FLUoxetine HCl 20 MG CAPSULE 40 MG PO (08:18)
[2021-05-03] MEDS: Gabapentin 600 MG TABLET PO ×2 (08:18→20:30)
[2021-05-03] MEDS: Loratadine 10 MG TABLET PO (08:18)
[2021-05-03] MEDS: Gabapentin 400 MG CAPSULE PO (08:18)
[2021-05-03] MEDS: Ziprasidone 20 MG CAPSULE PO ×2 (08:18→20:30)
--- NOTE | 2021-05-03 09:22 | PHA.PROG ---
Admission Date/Time: May 02, 2021 02:08 Indication: Resp. Infection Weight in k.718 kg Adjusted body weight in Kg: [place] body weight in Kg: Obesity Dosing Indication % IBW: Serum Creatinine - Last 168 Hours 05/01/21 05/02/21 05/02/21 22:47 03:06 06:01 Creatinine 1.89 H 1.66 H 1.58 H 05/03/21 06:32 Creatinine 1.15 Estimated CrCl and GFR - Last 168 Hours 05/01/21 05/02/21 05/02/21 22:47 03:06 06:01 Estim Creat Clear Calc 28.8 32.8 34.4 Estimated GFR 26 30 32 05/03/21 06:32 Estim Creat Clear Calc 47.3 Estimated GFR 46 Vancomycin Loading Dose: 1250 mg Current Vancomycin Dosing Regimen: 1000 mg q24h Vancomycin Monitoring using AUC goal of 400 - 600 range with trough as surrogate marker: With the improved renal function...a regimen of 1250 mg Q24H is predicting a AUC of 483. Date and Time for next Vancomycin Level to be drawn: 05/05 @ 0200 Pharmacist Comments on Vancomycin Plan: Changing the regimen to 1250 mg Q24H due to the improvement in renal function. Will continue to monitor Scr closely. Vancomycin dosing will take advantage of [employer] as a clinical decision support tool that uses Bayesian modeling to calculate individual patient's pharmacokinetic parameters and forecast the patient's drug concentration time course with the target goal AUC 24 range of 400 - 600 mg/L/hr.
--- NOTE | 2021-05-03 10:41 | PC.NURSE ---
PT CHANGED AND REPOSITIONED THIS MORNING PT FEED BY BILLING AND INSURANCE COORDINATOR THIS MORNING, SON HAS BEEN UPDATED
--- NOTE | 2021-05-03 11:32 | PM.PNGS ---
Subjective Subjective Date of Service: 05/03/21 Interval history: No changes in mental status No vomiting reported Physical Exam Vital Signs: Vital Signs: Last Vital Signs Temp 98.7 F 05/03/21 00:00 Pulse 111 H 05/03/21 04:00 Resp 16 05/03/21 04:00 BP 143/85 H 05/03/21 04:00 Pulse Ox 99 05/03/21 04:00 Body Mass Index 31.3 Chemistry 05/01/21 05/02/21 05/02/21 22:47 03:06 06:01 Sodium 136 139 138 Potassium 5.6 H D 5.6 H 5.5 H Carbon Dioxide 19 L 20 L 21 L BUN 44 H D 42 H 41 H Creatinine 1.89 H 1.66 H 1.58 H Calcium 9.2 8.5 D 8.3 L 05/03/21 06:32 Sodium 145 Potassium 4.8 Carbon Dioxide 19 L BUN 38 H Creatinine 1.15 Calcium 8.0 L Hematology 05/01/21 05/02/21 05/03/21 22:31 06:01 06:32 WBC 33.7 H* 32.5 H* 19.8 H Hgb 14.9 D 13.9 12.1 Plt Count 493 H D 399 377 Urinalysis 05/01/21 22:53 Urine Color YELLOW Urine Appearance CLEAR Urine pH 5.5 Ur Specific Gravit y 1.015 Urine Protein NEG Urine Glucose (UA) NEG Urine Ketones NEG Urine Blood NEG Urine Nitrite POS H Ur Leukocyte Kaye ase 1+ H Urine RBC 0 Urine WBC 10-14 H Ur Squamous Epith Cells 1+ Const: Other: Using O2 by face mask General: comfortable and no acute distress Resp: Effort & Inspection: normal respiratory effort Cardio: Rhythm: abnormal rhythm GI: Other: Soft, no apparent tenderness with deep palpation, no guarding rebound, no distension Procedures Date of Service Date of Service: 05/03/21 Progress Note: A&P Assessment and plan (1) Abnormal CT of the abdomen: Status: Acute Assessment and Plan: Clinically does not have small-bowel obstruction Also no signs of gallbladder disease on examination Abdominal exam remains benign and with no apparent tenderness Diet as tolerated Treat for pneumonia Fall Risk Details Current Medications: Current Medications Acetaminophen (Acetaminophen 325 Mg Tablet) 650 mg PO Q6H PRN PRN Reason: Pain, Mild (Pain Scale 1-3) Last Admin: 05/02/21 17:59 Dose: 650 mg Documented by: Benztropine Mesylate (Benztropine Mesylate 1 Mg Tablet) 1 mg PO BID [facility] Last Admin: 05/03/21 08:17 Dose: 1 mg Documented by: Clonazepam (Clonazepam 0.5 Mg Tablet) 0.25 mg PO BEDTIME [facility] Last Admin: 05/02/21 20:55 Dose: 0.25 mg Documented by: Cyanocobalamin (Cyanocobalamin (Vitamin B-12) 100 Mcg Tablet) 200 mcg PO DAILY [facility] Last Admin: 05/03/21 08:17 Dose: 200 mcg Documented by: Dextrose (Dextrose 50 % 25 Gm/50 Ml Vial) 25 gm IVPUSH Q15M PRN; Protocol PRN Reason: per Hypoglycemia Standing Ord. Fluoxetine HCl (Fluoxetine Hcl 10 Mg Capsule) 10 mg PO DAILY [facility] Last Admin: 05/03/21 08:17 Dose: 10 mg Documented by: Fluoxetine HCl (Fluoxetine Hcl 20 Mg Capsule) 40 mg PO DAILY [facility] Last Admin: 05/03/21 08:18 Dose: 40 mg Documented by: Gabapentin (Gabapentin 400 Mg Capsule) 400 mg PO DAILY [facility] Last Admin: 05/03/21 08:18 Dose: 400 mg Documented by: Gabapentin (Gabapentin 600 Mg Tablet) 600 mg PO BID [facility] Last Admin: 05/03/21 08:18 Dose: 600 mg Documented by: Glucose (Glucose Gel 15 Gm Gel..Gram.) 15 gm PO Q15M PRN; Protocol PRN Reason: per Hypoglycemia Standing Ord. Heparin Sodium (Porcine) (Heparin Sodium,Porcine 5,000 Unit/Ml Vial) 5,000 unit SUBCUT Q8H [facility] Last Admin: 05/03/21 11:17 Dose: Not Given Documented by: Cefepime HCl 1 gm/ Sodium (Chloride) 50 mls @ 100 mls/hr IV Q24H [facility] Last Infusion: 05/03/21 03:28 Dose: Infused Documented by: Sodium Chloride (Ns) 1,000 mls @ 75 mls/hr IVCONT .[id number] [facility] Last Admin: 05/03/21 04:30 Dose: 75 mls/hr Documented by: Vancomycin HCl 1,250 mg/ (Sodium Chloride) 250 mls @ 166.667 mls/hr IV Q24H [facility] Insulin Human Lispro (Insulin Lispro 100 Unit/Ml 3 Ml Vial) 0 unit SUBCUT QIDACHS [facility]; Protocol Last Admin: 05/03/21 08:16 Dose: 2 unit Documented by: Levothyroxine Sodium (Levothyroxine Sodium 75 Mcg Tablet) 75 mcg PO DAILY@0600 [facility] Last Admin: 05/03/21 06:32 Dose: 75 mcg Documented by: Loratadine (Loratadine 10 Mg Tablet) 10 mg PO DAILY [facility] Last Admin: 05/03/21 08:18 Dose: 10 mg Documented by: Melatonin (Melatonin 3 Mg Tablet) 6 mg PO BEDTIME PRN PRN Reason: Insomnia Nitroglycerin (Nitroglycerin 0.4 Mg Tab.Subl) 0.4 mg SUBLINGUAL Q5MX3 PRN PRN Reason: Chest Pain Omeprazole (Omeprazole 40 Mg Capsule.Dr) 40 mg PO DAILY@0630 [facility] Last Admin: 05/03/21 06:33 Dose: Not Given Documented by: Pharmacy Consult (Consult Rx Vancomycin Dosing) 1 each MISCELLANE DAILY PRN PRN Reason: Consult order Pharmacy Consult (Consult Rx Vancomycin Dosing) 1 each MISCELLANE DAILY PRN PRN Reason: Consult order Senna (Sennosides 8.6 Mg Tablet) 17.2 mg PO BEDTIME PRN PRN Reason: Constipation Sodium Chloride (0.9 % Sodium Chloride Flush 3 Ml Syringe) 3 ml IVFLUSH QSHIFT [facility] Last Admin: 05/03/21 08:17 Dose: Not Given Documented by: Ziprasidone (Ziprasidone 20 Mg Capsule) 20 mg PO BID [facility] Last Admin: 05/03/21 08:18 Dose: 20 mg Documented by: Time Spent With Patient Time: Total time spent is greater than 50% in coordination of care (as documented) at patient's floor/unit and/or counseling patient: Time with patient: 15 - 24 minutes Quality Stroke Does the patient have a stroke diagnosis?: No VTE Prior VTE?: No VTE Risk Level:: Medical - moderate - high VTE Device Contraindication: Treatment Not Indicated VTE Drug Contraindication: N/A - Med Ordered
[2021-05-03 12:29] LABS: Glucose, Whole Blood 211 mg/dL (60-115)
--- NOTE | 2021-05-03 12:33 | PC.NURSE ---
Unable to assess orientation. patient lethargic. Responds to painful stimuli and verbal at times. POC checked. Too lethargic to eat. Titrated O2 to 9L. Tolerating well. IV flushed. VSS. Resting safely.
--- NOTE | 2021-05-03 13:48 | P.PNIM_ITS ---
Progress Note: A&P (1) Acute UTI: Status: Acute <Susan Lundberg INFORMATION SYSTEMS MANAGER - Last Filed: 05/03/21 13:58> (2) JUAN (acute kidney injury): Status: Acute <Susan Lundberg NP - Last Filed: 05/03/21 13:58> (3) Type 2 diabetes mellitus: Status: Acute <Susan Lundberg INFORMATION SYSTEMS MANAGER - Last Filed: 05/03/21 13:58> (4) Dysphagia: Status: Acute <Susan Lundberg NP - Last Filed: 05/03/21 13:58> (5) Bilateral pneumonia: Status: Acute <Susan Lundberg INFORMATION SYSTEMS MANAGER - Last Filed: 05/03/21 13:58> Assessment and Plan: 75-year-old female with a past medical history of hypertension, hyperlipidemia, diabetes, CKD, paroxysmal AFib-not on anticoagulation, vitamin B12 deficiency, hypothyroidism, dysphagia, GERD, osteoarthritis, halfway resident, history of UTIs, history of aspiration pneumonia sent from the halfway with a chief complaint of poor oral intake for the past few days and nause a/vomiting Concern for aspiration pneumonia.? Admitted for further management. Toxic metabolic encephalopathy. secondary to severe sepsis. Supportive care. Severe sepsis. tachycardia, leukocytosis, lactic acidosis. resolved Likely in the setting of UTI/PNA.? Blood pressure improved with IV fluids.? follow cx UTI /Aspiration pneumonia. CT chest shows?Bilateral consolidations, most pro minently in the posterior right lower lobe, which may be secondary to aspiration and/or pneumonia in the proper clinical setting. Will keep the patient on IV vancomycin, cefepime. Id following Speech and swallow eval rec puree diet Follow-up cultures pt on Suppl oxygen. Nausea/Vomiting Ct abd shows partial SBO/Gall stones/Biliary sludge, No SBO according to general surgery team Keep NPO for now d/t dysphagia JUAN. Likely prerenal.?Resolving Avoid nephrotoxins.? Hold home enalapril. Hyperkalemia. Likely in the setting of JUAN.? EKG showed no acute changes.? Will repeat BMP. Diabetes Insulin sliding scale NPO for now Hypothyroidism. Continue home levothyroxine Hypertension Hold home antihypertensives d/t hypotension Paroxysmal AFib Patient on anticoagulation.? P.r.n. metoprolol for tachycardia. History of bipolar/major depression Continue home clonazepam? Continue fluoxetine, ziprasidone Dysphagia NPO for now.? Speech and swallow eval. DVT prophylaxis:? Subcu heparin Attending Dr. Li Code status:? Full code-discussed with the patient's son Garry over the phone. Previous DNR on <Susan Lundberg NP - Last Filed: 05/03/21 13:58> 75-year-old female with a past medical history of hypertension, hyperlipidemia, diabetes, CKD, paroxysmal AFib-not on anticoagulation, vitamin B12 deficiency, hypothyroidism, dysphagia, GERD, osteoarthritis, halfway resident, history of UTIs, history of aspiration pneumonia sent from the halfway with a chief complaint of poor oral intake for the past few days and nausea/vomiting Concern for aspiration pneumonia.? Admitted for further management. Toxic metabolic encephalopathy. secondary to severe sepsis. Supportive care. Severe sepsis. tachycardia, leukocytosis, lactic acidosis. resolved Likely in the setting of UTI/PNA.? Blood pressure improved with IV fluids.? follow cx UTI /Aspiration pneumonia. CT chest shows?Bilateral consolidations, most prominently in the posterior right lower lobe, which may be secondary to aspiration and/or pneumonia in the proper clinical setting. Will keep the patient on IV vancomycin, cefepime. Id following Speech and swallow eval rec puree diet Follow-up cultures pt on Suppl oxygen. Nausea/Vomiting Ct abd shows partial SBO/Gall stones/Biliary sludge, No SBO according to general surgery team Keep NPO for now d/t dysphagia JUAN. Likely prerenal.?Resolving Avoid nephrotoxins.? Hold home enalapril. Hyperkalemia. Likely in the setting of JUAN.? EKG showed no acute changes.? Will repeat BMP. Diabetes Insulin sliding scale NPO for now Hypothyroidism. Continue home levothyroxine Hypertension Hold home antihypertensives d/t hypotension Paroxysmal AFib Patient on anticoagulation.? P.r.n. metoprolol for tachycardia. History of bipolar/major depression Continue home clonazepam? Continue fluoxetine, ziprasidone Dysphagia NPO for now.? Speech and swallow eval. DVT prophylaxis:? Subcu heparin Attending Dr. Li Code status:? Full code-discussed with the patient's son Garry over the phone. Previous DNR on I saw and evaluated the patient and discussed the care with Edgar MCLEOD above. I agree with the findings and plan as documented in the note above <Christiangerry iL MD - Last Filed: 05/03/21 15:03> Subjective Subjective Date of Service: 05/03/21 <Susan Lundberg NP - Last Filed: 05/03/21 13:58> 05/03/21 <Christian Li MD - Last Filed: 05/03/21 15:03> Review of Systems Follow up <Susan Lundberg NP - Last Filed: 05/03/21 13:58> Physical Exam Vital Signs: Vital Signs: Last Vital Signs Temp 98.5 F 05/03/21 11:32 Pulse 108 H 05/03/21 11:32 Resp 18 05/03/21 11:32 BP 128/72 05/03/21 11:32 Pulse Ox 99 05/03/21 12:29 Body Mass Index 31.3 <Susan Lundberg NP - Last Filed: 05/03/21 13:58> Objective Data Current Medications Acetaminophen (Acetaminophen 325 Mg Tablet) 650 mg PO Q6H PRN PRN Reason: Pain, Mild (Pain Scale 1-3) Last Admin: 05/02/21 17:59 Dose: 650 mg Documented by: Benztropine Mesylate (Benztropine Mesylate 1 Mg Tablet) 1 mg PO BID [facility] Last Admin: 05/03/21 08:17 Dose: 1 mg Documented by: Clonazepam (Clonazepam 0.5 Mg Tablet) 0.25 mg PO BEDTIME [facility] Last Admin: 05/02/21 20:55 Dose: 0.25 mg Documented by: Cyanocobalamin (Cyanocobalamin (Vitamin B-12) 100 Mcg Tablet) 200 mcg PO DAILY [facility] Last Admin: 05/03/21 08:17 Dose: 200 mcg Documented by: Dextrose (Dextrose 50 % 25 Gm/50 Ml Vial) 25 gm IVPUSH Q15M PRN; Protocol PRN Reason: per Hypoglycemia Standing Ord. Fluoxetine HCl (Fluoxetine Hcl 10 Mg Capsule) 10 mg PO DAILY [facility] Last Admin: 05/03/21 08:17 Dose: 10 mg Documented by: Fluoxetine HCl (Fluoxetine Hcl 20 Mg Capsule) 40 mg PO DAILY [facility] Last Admin: 05/03/21 08:18 Dose: 40 mg Documented by: Gabapentin (Gabapentin 400 Mg Capsule) 400 mg PO DAILY [facility] Last Admin: 05/03/21 08:18 Dose: 400 mg Documented by: Gabapentin (Gabapentin 600 Mg Tablet) 600 mg PO BID [facility] Last Admin: 05/03/21 08:18 Dose: 600 mg Documented by: Glucose (Glucose Gel 15 Gm Gel..Gram.) 15 gm PO Q15M PRN; Protocol PRN Reason: per Hypoglycemia Standing Ord. Heparin Sodium (Porcine) (Heparin Sodium,Porcine 5,000 Unit/Ml Vial) 5,000 unit SUBCUT Q8H [facility] Last Admin: 05/03/21 11:17 Dose: Not Given Documented by: Cefepime HCl 1 gm/ Sodium (Chloride) 50 mls @ 100 mls/hr IV Q24H [facility] Last Infusion: 05/03/21 03:28 Dose: Infused Documented by: Sodium Chloride (Ns) 1,000 mls @ 75 mls/hr IVCONT .[id number] [facility] Last Admin: 05/03/21 04:30 Dose: 75 mls/hr Documented by: Vancomycin HCl 1,250 mg/ (Sodium Chloride) 250 mls @ 166.667 mls/hr IV Q24H [facility] Insulin Human Lispro (Insulin Lispro 100 Unit/Ml 3 Ml Vial) 0 unit SUBCUT QIDACHS [facility]; Protocol Last Admin: 05/03/21 12:42 Dose: Not Given Documented by: Levothyroxine Sodium (Levothyroxine Sodium 75 Mcg Tablet) 75 mcg PO DAILY@0600 [facility] Last Admin: 05/03/21 06:32 Dose: 75 mcg Documented by: Loratadine (Loratadine 10 Mg Tablet) 10 mg PO DAILY [facility] Last Admin: 05/03/21 08:18 Dose: 10 mg Documented by: Melatonin (Melatonin 3 Mg Tablet) 6 mg PO BEDTIME PRN PRN Reason: Insomnia Nitroglycerin (Nitroglycerin 0.4 Mg Tab.Subl) 0.4 mg SUBLINGUAL Q5MX3 PRN PRN Reason: Chest Pain Omeprazole (Omeprazole 40 Mg Capsule.Dr) 40 mg PO DAILY@0630 [facility] Last Admin: 05/03/21 06:33 Dose: Not Given Documented by: Pharmacy Consult (Consult Rx Vancomycin Dosing) 1 each MISCELLANE DAILY PRN PRN Reason: Consult order Pharmacy Consult (Consult Rx Vancomycin Dosing) 1 each MISCELLANE DAILY PRN PRN Reason: Consult order Senna (Sennosides 8.6 Mg Tablet) 17.2 mg PO BEDTIME PRN PRN Reason: Constipation Sodium Chloride (0.9 % Sodium Chloride Flush 3 Ml Syringe) 3 ml IVFLUSH QSHIFT [facility] Last Admin: 05/03/21 08:17 Dose: Not Given Documented by: Ziprasidone (Ziprasidone 20 Mg Capsule) 20 mg PO BID [facility] Last Admin: 05/03/21 08:18 Dose: 20 mg Documented by: <Susan Lundberg NP - Last Filed: 05/03/21 13:58> Labs CBC & Chem 7: : 05/03/21 06:32 05/03/21 06:32 <Susan Lundberg NP - Last Filed: 05/03/21 13:58> Labs: Laboratory Results - last 24 hr 05/02/21 05/02/21 05/03/21 17:59 20:00 06:32 MCV 105.2 H MCH 33.1 H MCHC 31.4 RDW 14.4 Plt Count 377 MPV 9.8 Absolute Nucleated RBC 0.000 Nucleated RBC % (auto) 0.0 Anion Gap Estim Creat Clear Calc Estimated GFR POC Glucose 235 H 241 H Random Glucose Calcium 05/03/21 05/03/21 05/03/21 06:32 07:37 12:26 MCV MCH MCHC RDW Plt Count MPV Absolute Nucleated RBC Nucleated RBC % (auto) Anion Gap 17 Estim Creat Clear Calc 47.3 Estimated GFR 46 POC Glucose 180 H 211 H Random Glucose 208 H Calcium 8.0 L <Susan Lundberg NP - Last Filed: 05/03/21 13:58> Microbiology Microbiology Results: Microbiology 05/01/21 06:49 Urine clean catch - Urine horowitz top Urine Culture - Preliminary Gram negative blair 05/01/21 22:35 Blood - Venous Blood Culture - Preliminary No growth after 24 hours. 05/01/21 22:32 Blood - Venous Blood Culture - Preliminary No growth after 24 hours. <Susan Lundberg NP - Last Filed: 05/03/21 13:58> Quality Stroke Does the patient have a stroke diagnosis?: No <Susan Lundberg NP - Last Filed: 05/03/21 13:58> VTE Prior VTE?: No <Susan Lundberg NP - Last Filed: 05/03/21 13:58> VTE Risk Level:: Medical - moderate - high <Susan Lundebrg NP - Last Filed: 05/03/21 13:58> VTE Device Contraindication: Treatment Not Indicated <Susan Lundberg NP - Last Filed: 05/03/21 13:58> VTE Drug Contraindication: N/A - Med Ordered <Susan Lundberg NP - Last Filed: 05/03/21 13:58>
[2021-05-03 14:48] LABS: Glucose, Whole Blood 203 mg/dL (60-115)
[2021-05-03 17:59] LABS: Glucose, Whole Blood 187 mg/dL (60-115)
[2021-05-03] MEDS: clonazePAM 0.5 MG TABLET 0.25 MG PO (20:29)
[2021-05-03 21:08] LABS: Glucose, Whole Blood 187 mg/dL (60-115)
[2021-05-04] MEDS: cefEPime HCl 1 GM in 0.9 % Sodium Chloride 50 ML IV (03:03)
[2021-05-04] MEDS: vancomycin HCL 1,250 MG in 0.9 % Sodium Chloride 250 ML 166.67 MG IV (03:41)
[2021-05-04] MEDS: Omeprazole 40 MG CAPSULE.DR PO (05:31)
[2021-05-04] MEDS: Levothyroxine Sodium 75 MCG TABLET PO (05:31)
[2021-05-04] MEDS: Heparin Sodium,Porcine 5,000 UNIT/ML VIAL 5000 UNIT SUBCUT ×3 (05:32→21:35)
[2021-05-04 07:31] LABS: Glucose, Whole Blood 166 mg/dL (60-115)
[2021-05-04 07:40] VITALS: BP 128/76; PULSE 113; RESP 18; TEMP 36.3; O2SAT 94
[2021-05-04] MEDS: 0.9 % Sodium Chloride 1,000 ML 75 ML IVCONT ×2 (08:21→21:32)
[2021-05-04] MEDS: Insulin Lispro 100 UNIT/ML 3 ML VIAL SUBCUT (08:22)
[2021-05-04] MEDS: 0.9 % Sodium Chloride Flush 3 ML SYRINGE IVFLUSH (08:23)
[2021-05-04] MEDS: FLUoxetine HCl 10 MG CAPSULE PO (08:23)
[2021-05-04] MEDS: Loratadine 10 MG TABLET PO (08:23)
[2021-05-04] MEDS: Cyanocobalamin (Vitamin B-12) 100 MCG TABLET 200 MCG PO (08:23)
[2021-05-04] MEDS: Gabapentin 400 MG CAPSULE PO (08:23)
[2021-05-04] MEDS: Benztropine Mesylate 1 MG TABLET PO ×2 (08:23→21:32)
[2021-05-04] MEDS: FLUoxetine HCl 20 MG CAPSULE 40 MG PO (08:23)
[2021-05-04] MEDS: Ziprasidone 20 MG CAPSULE PO ×2 (08:24→21:32)
[2021-05-04] MEDS: Gabapentin 600 MG TABLET PO ×2 (08:24→21:32)
--- NOTE | 2021-05-04 08:29 | P.PNGS_ITS ---
Subjective Subjective Date of Service: 05/04/21 Interval history: No events reported No changes in clinical status Patient remains done communicative Physical Exam Vital Signs: Vital Signs: Last Vital Signs Temp 97.4 F 05/04/21 07:40 Pulse 113 H 05/04/21 07:40 Resp 18 05/04/21 07:40 BP 128/76 05/04/21 07:40 Pulse Ox 94 05/04/21 07:40 Body Mass Index 31.3 Chemistry 05/01/21 05/02/21 05/02/21 22:47 03:06 06:01 Sodium 136 139 138 Potassium 5.6 H D 5.6 H 5.5 H Carbon Dioxide 19 L 20 L 21 L BUN 44 H D 42 H 41 H Creatinine 1.89 H 1.66 H 1.58 H Calcium 9.2 8.5 D 8.3 L 05/03/21 06:32 Sodium 145 Potassium 4.8 Carbon Dioxide 19 L BUN 38 H Creatinine 1.15 Calcium 8.0 L Hematology 05/01/21 05/02/21 05/03/21 22:31 06:01 06:32 WBC 33.7 H* 32.5 H* 19.8 H Hgb 14.9 D 13.9 12.1 Plt Count 493 H D 399 377 Urinalysis 05/01/21 22:53 Urine Color YELLOW Urine Appearance CLEAR Urine pH 5.5 Ur Specific Gravit y 1.015 Urine Protein NEG Urine Glucose (UA) NEG Urine Ketones NEG Urine Blood NEG Urine Nitrite POS H Ur Leukocyte Kaye ase 1+ H Urine RBC 0 Urine WBC 10-14 H Ur Squamous Epith Cells 1+ Const: Other: Not communicative, appears very drowsy General: comfortable and no acute distress Resp: Other: Using face mask for O2 Effort & Inspection: normal respiratory effort Cardio: Rhythm: abnormal rhythm GI: Other: Soft, nondistended, no apparent tenderness, no guarding rebound Procedures Date of Service Date of Service: 05/04/21 Progress Note: A&P Assessment and plan (1) Abnormal CT of the abdomen: Status: Acute Assessment and Plan: Clinically not obstructed nor with cholecystitis Abdomen benign No apparent tenderness Treat pneumonia Management as per hospitalist service Fall Risk Details Current Medications: Current Medications Acetaminophen (Acetaminophen 325 Mg Tablet) 650 mg PO Q6H PRN PRN Reason: Pain, Mild (Pain Scale 1-3) Last Admin: 05/02/21 17:59 Dose: 650 mg Documented by: Benztropine Mesylate (Benztropine Mesylate 1 Mg Tablet) 1 mg PO BID [facility] Last Admin: 05/04/21 08:23 Dose: 1 mg Documented by: Clonazepam (Clonazepam 0.5 Mg Tablet) 0.25 mg PO BEDTIME [facility] Last Admin: 05/03/21 20:29 Dose: 0.25 mg Documented by: Cyanocobalamin (Cyanocobalamin (Vitamin B-12) 100 Mcg Tablet) 200 mcg PO DAILY [facility] Last Admin: 05/04/21 08:23 Dose: 200 mcg Documented by: Dextrose (Dextrose 50 % 25 Gm/50 Ml Vial) 25 gm IVPUSH Q15M PRN; Protocol PRN Reason: per Hypoglycemia Standing Ord. Fluoxetine HCl (Fluoxetine Hcl 10 Mg Capsule) 10 mg PO DAILY [facility] Last Admin: 05/04/21 08:23 Dose: 10 mg Documented by: Fluoxetine HCl (Fluoxetine Hcl 20 Mg Capsule) 40 mg PO DAILY [facility] Last Admin: 05/04/21 08:23 Dose: 40 mg Documented by: Gabapentin (Gabapentin 400 Mg Capsule) 400 mg PO DAILY [facility] Last Admin: 05/04/21 08:23 Dose: 400 mg Documented by: Gabapentin (Gabapentin 600 Mg Tablet) 600 mg PO BID [facility] Last Admin: 05/04/21 08:24 Dose: 600 mg Documented by: Glucose (Glucose Gel 15 Gm Gel..Gram.) 15 gm PO Q15M PRN; Protocol PRN Reason: per Hypoglycemia Standing Ord. Heparin Sodium (Porcine) (Heparin Sodium,Porcine 5,000 Unit/Ml Vial) 5,000 unit SUBCUT Q8H [facility] Last Admin: 05/04/21 05:32 Dose: 5,000 unit Documented by: Cefepime HCl 1 gm/ Sodium (Chloride) 50 mls @ 100 mls/hr IV Q24H [facility] Last Infusion: 05/04/21 03:42 Dose: Infused Documented by: Sodium Chloride (Ns) 1,000 mls @ 75 mls/hr IVCONT .[id number] [facility] Last Admin: 05/04/21 08:21 Dose: 75 mls/hr Documented by: Vancomycin HCl 1,250 mg/ (Sodium Chloride) 250 mls @ 166.667 mls/hr IV Q24H [facility] Last Infusion: 05/04/21 05:30 Dose: Infused Documented by: Insulin Human Lispro (Insulin Lispro 100 Unit/Ml 3 Ml Vial) 0 unit SUBCUT QIDACHS [facility]; Protocol Last Admin: 05/04/21 08:22 Dose: 2 unit Documented by: Levothyroxine Sodium (Levothyroxine Sodium 75 Mcg Tablet) 75 mcg PO DAILY@0600 [facility] Last Admin: 05/04/21 05:31 Dose: 75 mcg Documented by: Loratadine (Loratadine 10 Mg Tablet) 10 mg PO DAILY [facility] Last Admin: 05/04/21 08:23 Dose: 10 mg Documented by: Melatonin (Melatonin 3 Mg Tablet) 6 mg PO BEDTIME PRN PRN Reason: Insomnia Nitroglycerin (Nitroglycerin 0.4 Mg Tab.Subl) 0.4 mg SUBLINGUAL Q5MX3 PRN PRN Reason: Chest Pain Omeprazole (Omeprazole 40 Mg Capsule.Dr) 40 mg PO DAILY@0630 [facility] Last Admin: 05/04/21 05:31 Dose: 40 mg Documented by: Pharmacy Consult (Consult Rx Vancomycin Dosing) 1 each MISCELLANE DAILY PRN PRN Reason: Consult order Pharmacy Consult (Consult Rx Vancomycin Dosing) 1 each MISCELLANE DAILY PRN PRN Reason: Consult order Senna (Sennosides 8.6 Mg Tablet) 17.2 mg PO BEDTIME PRN PRN Reason: Constipation Sodium Chloride (0.9 % Sodium Chloride Flush 3 Ml Syringe) 3 ml IVFLUSH QSHIFT [facility] Last Admin: 05/04/21 08:23 Dose: 3 ml Documented by: Ziprasidone (Ziprasidone 20 Mg Capsule) 20 mg PO BID [facility] Last Admin: 05/04/21 08:24 Dose: 20 mg Documented by: Time Spent With Patient Time: Total time spent is greater than 50% in coordination of care (as documented) at patient's floor/unit and/or counseling patient: Time with patient: 15 - 24 minutes Quality Stroke Does the patient have a stroke diagnosis?: No VTE Prior VTE?: No VTE Risk Level:: Medical - moderate - high VTE Device Contraindication: Treatment Not Indicated VTE Drug Contraindication: N/A - Med Ordered
[2021-05-04 08:55] LABS: Creatinine Clr Calc Pharmacy 60.5; Estimated Glomerular Filt Rate > 60
--- NOTE | 2021-05-04 10:18 | P.CNNE_ITS ---
History of Present Illness Data of Consult Service Date: 05/04/21 Primary Care Provider: Justin Sahu MD HPI Reason for consult: Tremor 75 years old woman with complicated underlying history brought from prison with change in mental status and was diagnosed with bilateral pneumonia and UTI. This consultation was requested for facial and hand tremor. She was a poor historian but was able to answer simple questions. It was not clear how long this shaking was going on. Review of Systems Review of Systems: Could not be done with her. [facility] Past Medical History Medical History Abnormal CT of the abdomen Achalasia, esophageal Anxiety Bipolar 1 disorder CKD (chronic kidney disease) COPD (chronic obstructive pulmonary disease) Depression Difficulty in walking Dysphagia Gastro-esophageal reflux History of COVID-19 Hypertension Hypothyroidism Osteoarthritis Paroxysmal atrial fibrillation Polyneuropathy Type 2 diabetes mellitus Vitamin B12 deficiency 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 Weakness Family History Family history: reviewed and not pertinent Surgical History Surgical History History of total replacement of right hip Social History Social History Household Members: Unknown / Unable to assess Housing: Residential Alcohol intake: never Patient Tobacco Use Status: Never used Tobacco service: No Meds Allergies Allergy/AdvReac Type Severity Reaction Status Date / Time ciprofloxacin [From CIPRO] Allergy Unknown UNKNOWN Verified 05/01/21 22:14 clarithromycin [From Biaxin] Allergy Unknown UNKNOWN Verified 05/01/21 22:14 Effexor Allergy Unknown Unknown Verified 05/01/21 22:14 Floxin Otic Allergy Unknown Unknown Verified 05/01/21 22:14 levofloxacin [From LEVAQUIN] Allergy Unknown UNKNOWN Verified 05/01/21 22:14 loratadine [From CLARITIN] Allergy Unknown UNKNOWN Verified 05/01/21 22:14 ofloxacin [From FLOXIN] Allergy Unknown UNKNOWN Verified 05/01/21 22:14 penicillin V Allergy Unknown Unknown Verified 05/01/21 22:14 Penicillins [PENICILLINS] Allergy Unknown UNKNOWN Verified 05/01/21 22:14 sertraline [Zoloft] Allergy Unknown Unknown Verified 05/01/21 22:14 Sulfa (Sulfonamide Allergy Unknown Unknown Verified 05/01/21 22:14 Antibiotics) sulfamethoxazole Allergy Unknown UNKNOWN Verified 05/01/21 22:14 [From BACTRIM] trimethoprim [From BACTRIM] Allergy Unknown UNKNOWN Verified 05/01/21 22:14 Active Medications: Current Medications Acetaminophen (Acetaminophen 325 Mg Tablet) 650 mg PO Q6H PRN PRN Reason: Pain, Mild (Pain Scale 1-3) Last Admin: 05/02/21 17:59 Dose: 650 mg Documented by: Benztropine Mesylate (Benztropine Mesylate 1 Mg Tablet) 1 mg PO BID [facility] Last Admin: 05/04/21 08:23 Dose: 1 mg Documented by: Clonazepam (Clonazepam 0.5 Mg Tablet) 0.25 mg PO BEDTIME [facility] Last Admin: 05/03/21 20:29 Dose: 0.25 mg Documented by: Cyanocobalamin (Cyanocobalamin (Vitamin B-12) 100 Mcg Tablet) 200 mcg PO DAILY [facility] Last Admin: 05/04/21 08:23 Dose: 200 mcg Documented by: Dextrose (Dextrose 50 % 25 Gm/50 Ml Vial) 25 gm IVPUSH Q15M PRN; Protocol PRN Reason: per Hypoglycemia Standing Ord. Fluoxetine HCl (Fluoxetine Hcl 10 Mg Capsule) 10 mg PO DAILY [facility] Last Admin: 05/04/21 08:23 Dose: 10 mg Documented by: Fluoxetine HCl (Fluoxetine Hcl 20 Mg Capsule) 40 mg PO DAILY [facility] Last Admin: 05/04/21 08:23 Dose: 40 mg Documented by: Gabapentin (Gabapentin 400 Mg Capsule) 400 mg PO DAILY [facility] Last Admin: 05/04/21 08:23 Dose: 400 mg Documented by: Gabapentin (Gabapentin 600 Mg Tablet) 600 mg PO BID [facility] Last Admin: 05/04/21 08:24 Dose: 600 mg Documented by: Glucose (Glucose Gel 15 Gm Gel..Gram.) 15 gm PO Q15M PRN; Protocol PRN Reason: per Hypoglycemia Standing Ord. Heparin Sodium (Porcine) (Heparin Sodium,Porcine 5,000 Unit/Ml Vial) 5,000 unit SUBCUT Q8H [facility] Last Admin: 05/04/21 05:32 Dose: 5,000 unit Documented by: Cefepime HCl 1 gm/ Sodium (Chloride) 50 mls @ 100 mls/hr IV Q24H [facility] Last Infusion: 05/04/21 03:42 Dose: Infused Documented by: Sodium Chloride (Ns) 1,000 mls @ 75 mls/hr IVCONT .[id number] [facility] Last Admin: 05/04/21 08:21 Dose: 75 mls/hr Documented by: Vancomycin HCl 1,250 mg/ (Sodium Chloride) 250 mls @ 166.667 mls/hr IV Q24H [facility] Last Infusion: 05/04/21 05:30 Dose: Infused Documented by: Insulin Human Lispro (Insulin Lispro 100 Unit/Ml 3 Ml Vial) 0 unit SUBCUT [facility]; Protocol Last Admin: 05/04/21 08:22 Dose: 2 unit Documented by: Levothyroxine Sodium (Levothyroxine Sodium 75 Mcg Tablet) 75 mcg PO DAILY@0600 [facility] Last Admin: 05/04/21 05:31 Dose: 75 mcg Documented by: Loratadine (Loratadine 10 Mg Tablet) 10 mg PO DAILY [facility] Last Admin: 05/04/21 08:23 Dose: 10 mg Documented by: Melatonin (Melatonin 3 Mg Tablet) 6 mg PO BEDTIME PRN PRN Reason: Insomnia Nitroglycerin (Nitroglycerin 0.4 Mg Tab.Subl) 0.4 mg SUBLINGUAL Q5MX3 PRN PRN Reason: Chest Pain Omeprazole (Omeprazole 40 Mg Capsule.Dr) 40 mg PO DAILY@0630 [facility] Last Admin: 05/04/21 05:31 Dose: 40 mg Documented by: Pharmacy Consult (Consult Rx Vancomycin Dosing) 1 each MISCELLANE DAILY PRN PRN Reason: Consult order Pharmacy Consult (Consult Rx Vancomycin Dosing) 1 each MISCELLANE DAILY PRN PRN Reason: Consult order Senna (Sennosides 8.6 Mg Tablet) 17.2 mg PO BEDTIME PRN PRN Reason: Constipation Sodium Chloride (0.9 % Sodium Chloride Flush 3 Ml Syringe) 3 ml IVFLUSH QSHIFT [facility] Last Admin: 05/04/21 08:23 Dose: 3 ml Documented by: Ziprasidone (Ziprasidone 20 Mg Capsule) 20 mg PO BID [facility] Last Admin: 05/04/21 08:24 Dose: 20 mg Documented by: Home Medications Medication Instructions Recorded Confirmed Last Taken Type benztropine 1 mg tablet 1 tab PO BID 03/08/21 05/02/21 Unknown History cetirizine 10 mg tablet 10 mg PO DAILY 03/08/21 05/02/21 Unknown History clonazepam 0.25 mg disintegrating 0.25 mg PO DAILY PRN 03/08/21 05/02/21 Unknown History tablet clonazepam 0.5 mg tablet 1 tab PO BEDTIME 03/08/21 05/02/21 Unknown History cyanocobalamin (vitamin B-12) 100 200 mcg PO DAILY 03/08/21 05/02/21 Unknown History mcg tablet enalapril maleate 5 mg tablet 5 mg PO DAILY 03/08/21 05/02/21 Unknown History (Vasotec) fentanyl 12 mcg/hr transdermal 1 patch TOPICAL Q3D 03/08/21 05/02/21 Unknown History patch fluoxetine 10 mg capsule 1 cap PO DAILY 03/08/21 05/02/21 Unknown History fluoxetine 20 mg capsule 2 cap PO QAM 03/08/21 05/02/21 Unknown History gabapentin 400 mg capsule 1 cap PO DAILY 03/08/21 05/02/21 Unknown History gabapentin 600 mg tablet 1 tab PO BID 03/08/21 05/02/21 Unknown History levothyroxine 75 mcg tablet 1 tab PO DAILY 03/08/21 05/02/21 Unknown History nitroglycerin 0.4 mg sublingual 0.4 mg SUBLINGUAL DIRECTED PRN 03/08/21 05/02/21 Unknown History tablet oxycodone 5 mg tablet 1 tab PO BID PRN 03/08/21 05/02/21 Unknown History pioglitazone 15 mg tablet (Actos) 15 mg PO DAILY 03/08/21 05/02/21 Unknown Hist ory ziprasidone HCl 20 mg capsule 20 mg PO BID 03/08/21 05/02/21 Unknown History (Abilio) Physical Exam Vital Signs: Vital Signs: Last Vital Signs Temp 97.4 F 05/04/21 07:40 Pulse 113 H 05/04/21 07:40 Resp 18 05/04/21 07:40 BP 128/76 05/04/21 07:40 Pulse Ox 94 05/04/21 07:40 Body Mass Index 31.3 Neuro: Other: She was drowsy but I was able to wake her up and she made eye co ntact and followed some one-step commands. She did not know where she was. She denied that she was in pain. Visual mercado were difficult to determine. This seems to be some problem with right hemifield. Face was symmetrical. Occasional left-sided facial twitch was noted. When I involved her and examination, her both hands started to shake. In between she was able to follow simple commands to squeeze my hands. There was significant bilateral leg and foot edema. Left plantar was extensor and right was flexor. Exam was limited. 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 Microbiology Microbiology Results: Microbiology 05/01/21 22:35 Blood - Venous Blood Culture - Preliminary No growth after 48 hours. 05/01/21 22:32 Blood - Venous Blood Culture - Preliminary No growth after 48 hours. 05/01/21 06:49 Urine clean catch - Urine horowitz top Urine Culture - Preliminary Gram negative blair Assessment and Plan (1) Tremor: Status: Acute Probably chronic tremor. At this time while she was quite sick evaluation of this tremor was difficult and I recommend no intervention. It could be evaluated as an outpatient when she was treated for infection and related complications. (2) Toxic metabolic encephalopathy: Status: Acute This has resulted in mental confusion and might have contributed to worsening of tremor. (3) Abnormal neurological exam: Status: Acute Right visual field problem is explained by left posterior cerebral artery infarct but left extensor plantar is not with no focal lesion seen on the right side. If possible an MRI of brain without contrast is recommended to evaluate her brain to rule out right hemispheric stroke. If that is negative a cervical spine MRI is recommended. Procedures Date of Service Date of Service: 05/04/21
--- NOTE | 2021-05-04 10:42 | P.CONCA_ITS ---
History of Present Illness History of Present Illness Date of Service: 05/04/21 Requesting physician: Susan Lundberg Chief complaint: Tachycardia, question atrial fibrillation Narrative: We were consulted on [facility] because of tachycardia noted on the monitor. Patient is a poor historian and does not provide much history. History was obtained from the chart. Patient admitted with severe sepsis related to probably bilateral pneumonia along with significant hypoxemia. This noted on the monitoring that when patient gets hypoxemic, she seems to wake up and has lot of tremors at that time as lot of artifact on the monitor. He was a concern for atrial fibrillation. However reviewing the monitor closely there appears to be regular QRS complexes through all the artifact and most likely suggestive of sinus tachycardia. Patient min is common and the EKG rhythm strip is cleared appears to be in sinus rhythm. Patient does has prior history of paroxysmal atrial fibrillation not on any anticoagulation. Rest of the history obtained from the chart and as noted in the hospitalist note. Patient does not provide any symptoms. 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 Weakness Family History Family history: reviewed and not pertinent Surgical History Surgical History History of total replacement of right hip Social History Social History Household Members: Unknown / Unable to assess Housing: [facility] Alcohol intake: never Patient Tobacco Use Status: Never used Tobacco service: No Meds Allergies Allergy/AdvReac Type Severity Reaction Status Date / Time ciprofloxacin [From CIPRO] Allergy Unknown UNKNOWN Verified 05/01/21 22:14 clarithromycin [From Biaxin] Allergy Unknown UNKNOWN Verified 05/01/21 22:14 Effexor Allergy Unknown Unknown Verified 05/01/21 22:14 Floxin Otic Allergy Unknown Unknown Verified 05/01/21 22:14 levofloxacin [From LEVAQUIN] Allergy Unknown UNKNOWN Verified 05/01/21 22:14 loratadine [From CLARITIN] Allergy Unknown UNKNOWN Verified 05/01/21 22:14 ofloxacin [From FLOXIN] Allergy Unknown UNKNOWN Verified 05/01/21 22:14 penicillin V Allergy Unknown Unknown Verified 05/01/21 22:14 Penicillins [PENICILLINS] Allergy Unknown UNKNOWN Verified 05/01/21 22:14 sertraline [Zoloft] Allergy Unknown Unknown Verified 05/01/21 22:14 Sulfa (Sulfonamide Allergy Unknown Unknown Verified 05/01/21 22:14 Antibiotics) sulfamethoxazole Allergy Unknown UNKNOWN Verified 05/01/21 22:14 [From BACTRIM] trimethoprim [From BACTRIM] Allergy Unknown UNKNOWN Verified 05/01/21 22:14 Active Medications: Current Medications Acetaminophen (Acetaminophen 325 Mg Tablet) 650 mg PO Q6H PRN PRN Reason: Pain, Mild (Pain Scale 1-3) Last Admin: 05/02/21 17:59 Dose: 650 mg Documented by: Benztropine Mesylate (Benztropine Mesylate 1 Mg Tablet) 1 mg PO BID [facility] Last Admin: 05/04/21 08:23 Dose: 1 mg Documented by: Clonazepam (Clonazepam 0.5 Mg Tablet) 0.25 mg PO BEDTIME [facility] Last Admin: 05/03/21 20:29 Dose: 0.25 mg Documented by: Cyanocobalamin (Cyanocobalamin (Vitamin B-12) 100 Mcg Tablet) 200 mcg PO DAILY [facility] Last Admin: 05/04/21 08:23 Dose: 200 mcg Documented by: Dextrose (Dextrose 50 % 25 Gm/50 Ml Vial) 25 gm IVPUSH Q15M PRN; Protocol PRN Reason: per Hypoglycemia Standing Ord. Fluoxetine HCl (Fluoxetine Hcl 10 Mg Capsule) 10 mg PO DAILY [facility] Last Admin: 05/04/21 08:23 Dose: 10 mg Documented by: Fluoxetine HCl (Fluoxetine Hcl 20 Mg Capsule) 40 mg PO DAILY [facility] Last Admin: 05/04/21 08:23 Dose: 40 mg Documented by: Gabapentin (Gabapentin 400 Mg Capsule) 400 mg PO DAILY [facility] Last Admin: 05/04/21 08:23 Dose: 400 mg Documented by: Gabapentin (Gabapentin 600 Mg Tablet) 600 mg PO BID [facility] Last Admin: 05/04/21 08:24 Dose: 600 mg Documented by: Glucose (Glucose Gel 15 Gm Gel..Gram.) 15 gm PO Q15M PRN; Protocol PRN Reason: per Hypoglycemia Standing Ord. Heparin Sodium (Porcine) (Heparin Sodium,Porcine 5,000 Unit/Ml Vial) 5,000 unit SUBCUT Q8H [facility] Last Admin: 05/04/21 05:32 Dose: 5,000 unit Documented by: Cefepime HCl 1 gm/ Sodium (Chloride) 50 mls @ 100 mls/hr IV Q24H [facility] Last Infusion: 05/04/21 03:42 Dose: Infused Documented by: Sodium Chloride (Ns) 1,000 mls @ 75 mls/hr IVCONT .[id number] [facility] Last Admin: 05/04/21 08:21 Dose: 75 mls/hr Documented by: Vancomycin HCl 1,250 mg/ (Sodium Chloride) 250 mls @ 166.667 mls/hr IV Q24H [facility] Last Infusion: 05/04/21 05:30 Dose: Infused Documented by: Insulin Human Lispro (Insulin Lispro 100 Unit/Ml 3 Ml Vial) 0 unit SUBCUT QIDACHS [facility]; Protocol Last Admin: 05/04/21 08:22 Dose: 2 unit Documented by: Levothyroxine Sodium (Levothyroxine Sodium 75 Mcg Tablet) 75 mcg PO DAILY@0600 [facility] Last Admin: 05/04/21 05:31 Dose: 75 mcg Documented by: Loratadine (Loratadine 10 Mg Tablet) 10 mg PO DAILY [facility] Last Admin: 05/04/21 08:23 Dose: 10 mg Documented by: Melatonin (Melatonin 3 Mg Tablet) 6 mg PO BEDTIME PRN PRN Reason: Insomnia Nitroglycerin (Nitroglycerin 0.4 Mg Tab.Subl) 0.4 mg SUBLINGUAL Q5MX3 PRN PRN Reason: Chest Pain Omeprazole (Omeprazole 40 Mg Capsule.Dr) 40 mg PO DAILY@0630 [facility] Last Admin: 05/04/21 05:31 Dose: 40 mg Documented by: Pharmacy Consult (Consult Rx Vancomycin Dosing) 1 each MISCELLANE DAILY PRN PRN Reason: Consult order Pharmacy Consult (Consult Rx Vancomycin Dosing) 1 each MISCELLANE DAILY PRN PRN Reason: Consult order Senna (Sennosides 8.6 Mg Tablet) 17.2 mg PO BEDTIME PRN PRN Reason: Constipation Sodium Chloride (0.9 % Sodium Chloride Flush 3 Ml Syringe) 3 ml IVFLUSH QSHIFT [facility] Last Admin: 05/04/21 08:23 Dose: 3 ml Documented by: Ziprasidone (Ziprasidone 20 Mg Capsule) 20 mg PO BID [facility] Last Admin: 05/04/21 08:24 Dose: 20 mg Documented by: Home Medications Medication Instructions Recorded Confirmed Last Taken Type benztropine 1 mg tablet 1 tab PO BID 03/08/21 05/02/21 Unknown History cetirizine 10 mg tablet 10 mg PO DAILY 03/08/21 05/02/21 Unknown History clonazepam 0.25 mg disintegrating 0.25 mg PO DAILY PRN 03/08/21 05/02/21 Unknown History tablet clonazepam 0.5 mg tablet 1 tab PO BEDTIME 03/08/21 05/02/21 Unknown History cyanocobalamin (vitamin B-12) 100 200 mcg PO DAILY 03/08/21 05/02/21 Unknown History mcg tablet enalapril maleate 5 mg tablet 5 mg PO DAILY 03/08/21 05/02/21 Unknown History (Vasotec) fentanyl 12 mcg/hr transdermal 1 patch TOPICAL Q3D 03/08/21 05/02/21 Unknown History patch fluoxetine 10 mg capsule 1 cap PO DAILY 03/08/21 05/02/21 Unknown History fluoxetine 20 mg capsule 2 cap PO QAM 03/08/21 05/02/21 Unknown History gabapentin 400 mg capsule 1 cap PO DAILY 03/08/21 05/02/21 Unknown History gabapentin 600 mg tablet 1 tab PO BID 03/08/21 05/02/21 Unknown History levothyroxine 75 mcg tablet 1 tab PO DAILY 03/08/21 05/02/21 Unknown History nitroglycerin 0.4 mg sublingual 0.4 mg SUBLINGUAL DIRECTED PRN 03/08/21 05/02/21 Unknown History tablet oxycodone 5 mg tablet 1 tab PO BID PRN 03/08/21 05/02/21 Unknown History pioglitazone 15 mg tablet (Actos) 15 mg PO DAILY 03/08/21 05/02/21 Unknown History ziprasidone HCl 20 mg capsule 20 mg PO BID 03/08/21 05/02/21 Unknown History (Abilio) Physical Exam Vital Signs: Vital Signs: Last Vital Signs Temp 97.4 F 05/04/21 07:40 Pulse 113 H 05/04/21 07:40 Resp 18 05/04/21 07:40 BP 128/76 05/04/21 07:40 Pulse Ox 94 05/04/21 07:40 Body Mass Index 31.3 Const: General: lethargic and patient obtunded Nutritional Appearance: overweight Orientation/consciousness: patient obtunded and lethargic HENMT: Head: Yes normocephalic and Yes atraumatic Neck: Neck: Yes no JVD Resp: Effort & Inspection: decreased respiratory effort Auscultation: crackles, wheezes and bronchovesicular breath sounds Cardio: Jugular venous distension: no JVD Palpation: normal PMI Rate: regular rate Rhythm: regular rhythm Heart sounds: S1 normal heart sound present and S2 normal heart sound present GI: Auscultation: normal bowel sounds Neuro: General: patient obtunded Extrem: General: Yes no clubbing, cyanosis or edema Results Labs and Meds Result diagrams: 05/03/21 06:32 05/04/21 08:34 Lab results: Laboratory Results - last 24 hr 05/03/21 05/03/21 05/03/21 12:26 14:40 17:55 Creatinine Estim Creat Clear Calc Estimated GFR POC Glucose 211 H 203 H 187 H 05/03/21 05/04/21 05/04/21 21:03 07:12 08:34 Creatinine 0.90 Estim Creat Clear Calc 60.5 Estimated GFR > 60 POC Glucose 187 H 166 H Assessment and Plan (1) Tachycardia: Status: Acute Tachycardia noted on monitoring, appears to be regular and most likely sinus tachycardia with significant artifact from monitoring due to her tremors. These episodes are noted when patient is hypoxemic. Most likely related to the same. Continue treat underlying medical condition including sepsis and hyp oxemia. Continue supportive care. These episodes do not appear to be secondary to atrial fibrillation. However this cannot be entirely ruled out it is unlikely. Not on oral anticoagulation from before, was determined as outpatient. History cannot be obtained from the patient to further determine and discussed about the utility of this. Continue supportive care. Will sign of the case Procedures Date of Service Date of Service: 05/04/21
[2021-05-04 11:12] VITALS: BP 128/76; PULSE 113; O2SAT 94
[2021-05-04 11:26] LABS: Glucose, Whole Blood 143 mg/dL (60-115)
[2021-05-04 11:36] VITALS: BP 109/69; PULSE 74; RESP 20; TEMP 36.4; O2SAT 97
--- NOTE | 2021-05-04 12:09 | MHC.SLORD ---
Speech Language Pathology Order Status: Patient is now on Venturi mask. Patient refused dysphagia treatment this morning despite encouragement and explanation of rationale. AUTHORIZATION REPRESENTATIVE removed straw from bedside. Patient is on PUREED (NDD1) solids and NECTAR THICK liquids. Plan for PO trials tomorrow morning. AUTHORIZATION REPRESENTATIVE to continue to follow.
[2021-05-04 12:24] VITALS: PULSE 68; O2SAT 96
[2021-05-04 14:23] VITALS: BMI 31.3
[2021-05-04 15:56] VITALS: BP 120/70; PULSE 96; RESP 18; TEMP 36.7; O2SAT 94
--- NOTE | 2021-05-04 16:02 | P.PNIM_ITS ---
Progress Note: A&P (1) Acute UTI: Status: Acute (2) Toxic metabolic encephalopathy: Status: Acute (3) Tremor: Status: Acute (4) Bilateral pneumonia: Status: Acute (5) Coarse tremors: Status: Acute Assessment and Plan: 75-year-old female with a past medical history of hypertension, hyperlipidemia, diabetes, CKD, paroxysmal AFib-not on anticoagulation, vitamin B12 deficiency, hypothyroidism, dysphagia, GERD, osteoarthritis, senior care resident, history of UTIs, history of aspiration pneumonia sent from the senior care with a chief complaint of poor oral intake for the past few days and nausea/vomiting Concern for aspiration pneumonia.? Admitted for further management. Tremors. no hx of parkinsons seen and evaluated by Neurology with no recommendation for inpatient intervention she may be seen as an outpatient after she has completed her treatment for infection There was some noted visual field problems with history of left posterior cerebral artery infarct, Neurology recommendation for MRI without contrast to evaluate for right hemispheric stroke, if negative cervical spine MRI is levi mmended. UTI /Aspiration pneumonia. CT chest shows?Bilateral consolidations, most promin ently in the posterior right lower lobe, which may be secondary to aspiration and/or pneumonia in the proper clinical setting. Will keep the patient on IV vancomycin, cefepime. Id following Speech and swallow eval rec puree diet cx neg after 48hrs pt on Suppl oxygen. Toxic metabolic encephalopathy. secondary to severe sepsis. More awake today Supportive care. Severe sepsis. tachycardia, leukocytosis, lactic acidosis. resolved Likely in the setting of UTI/PNA.? Blood pressure improved with IV fluids.? follow cx Nausea/Vomiting Ct abd shows partial SBO/Gall stones/Biliary sludge, No SBO according to general surgery team Keep NPO for now d/t dysphagia JUAN. Likely prerenal.?Resolving Avoid nephrotoxins.? Hold home enalapril. Hyperkalemia. Likely in the setting of JUAN.?Resolved EKG showed no acute changes.? Will repeat BMP. Diabetes Insulin sliding scale NPO for now Hypothyroidism. Continue home levothyroxine Hypertension Hold home antihypertensives d/t hypotension Paroxysmal AFib Patient on anticoagulation.? P.r.n. metoprolol for tachycardia. History of bipolar/major depression Continue home clonazepam? Continue fluoxetine, ziprasidone Dysphagia puree diet ? aspiration precautions DVT prophylaxis:? Subcu heparin Attending Dr. Zamora Subjective Subjective Date of Service: 05/04/21 Review of Systems Follow up UTI and pNA more awake today no c/o pain Physical Exam Vital Signs: Vital Signs: Last Vital Signs Temp 97.6 F 05/04/21 11:36 Pulse 68 05/04/21 12:24 Resp 20 05/04/21 11:36 BP 109/69 05/04/21 11:36 Pulse Ox 96 05/04/21 12:24 Body Mass Index 31.3 Appearing in no acute distress lung sounds are clear to auscultation heart regular rate rhythm, clear S1, S2 positive bowel sounds, abdomen is soft, nontender neuro patient is alert x3, no focal deficits, bilat hand tremor and facial twitch Objective Data Current Medications Acetaminophen (Acetaminophen 325 Mg Tablet) 650 mg PO Q6H PRN PRN Reason: Pain, Mild (Pain Scale 1-3) Last Admin: 05/02/21 17:59 Dose: 650 mg Documented by: Benztropine Mesylate (Benztropine Mesylate 1 Mg Tablet) 1 mg PO BID [facility] Last Admin: 05/04/21 08:23 Dose: 1 mg Documented by: Clonazepam (Clonazepam 0.5 Mg Tablet) 0.25 mg PO BEDTIME [facility] Last Admin: 05/03/21 20:29 Dose: 0.25 mg Documented by: Cyanocobalamin (Cyanocobalamin (Vitamin B-12) 100 Mcg Tablet) 200 mcg PO DAILY [facility] Last Admin: 05/04/21 08:23 Dose: 200 mcg Documented by: Dextrose (Dextrose 50 % 25 Gm/50 Ml Vial) 25 gm IVPUSH Q15M PRN; Protocol PRN Reason: per Hypoglycemia Standing Ord. Fluoxetine HCl (Fluoxetine Hcl 10 Mg Capsule) 10 mg PO DAILY [facility] Last Admin: 05/04/21 08:23 Dose: 10 mg Documented by: Fluoxetine HCl (Fluoxetine Hcl 20 Mg Capsule) 40 mg PO DAILY [facility] Last Admin: 05/04/21 08:23 Dose: 40 mg Documented by: Gabapentin (Gabapentin 400 Mg Capsule) 400 mg PO DAILY [facility] Last Admin: 05/04/21 08:23 Dose: 400 mg Documented by: Gabapentin (Gabapentin 600 Mg Tablet) 600 mg PO BID [facility] Last Admin: 05/04/21 08:24 Dose: 600 mg Documented by: Glucose (Glucose Gel 15 Gm Gel..Gram.) 15 gm PO Q15M PRN; Protocol PRN Reason: per Hypoglycemia Standing Ord. Heparin Sodium (Porcine) (Heparin Sodium,Porcine 5,000 Unit/Ml Vial) 5,000 unit SUBCUT Q8H [facility] Last Admin: 05/04/21 12:18 Dose: 5,000 unit Documented by: Cefepime HCl 1 gm/ Sodium (Chloride) 50 mls @ 100 mls/hr IV Q24H [facility] Last Infusion: 05/04/21 03:42 Dose: Infused Documented by: Sodium Chloride (Ns) 1,000 mls @ 75 mls/hr IVCONT .[id number] [facility] Last Admin: 05/04/21 08:21 Dose: 75 mls/hr Documented by: Vancomycin HCl 1,250 mg/ (Sodium Chloride) 250 mls @ 166.667 mls/hr IV Q24H [facility] Last Infusion: 05/04/21 05:30 Dose: Infused Documented by: Insulin Human Lispro (Insulin Lispro 100 Unit/Ml 3 Ml Vial) 0 unit SUBCUT QIDACHS [facility]; Protocol Last Admin: 05/04/21 12:16 Dose: Not Given Documented by: Levothyroxine Sodium (Levothyroxine Sodium 75 Mcg Tablet) 75 mcg PO DAILY@0600 [facility] Last Admin: 05/04/21 05:31 Dose: 75 mcg Documented by: Loratadine (Loratadine 10 Mg Tablet) 10 mg PO DAILY [facility] Last Admin: 05/04/21 08:23 Dose: 10 mg Documented by: Melatonin (Melatonin 3 Mg Tablet) 6 mg PO BEDTIME PRN PRN Reason: Insomnia Nitroglycerin (Nitroglycerin 0.4 Mg Tab.Subl) 0.4 mg SUBLINGUAL Q5MX3 PRN PRN Reason: Chest Pain Omeprazole (Omeprazole 40 Mg Capsule.Dr) 40 mg PO DAILY@0630 [facility] Last Admin: 05/04/21 05:31 Dose: 40 mg Documented by: Pharmacy Consult (Consult Rx Vancomycin Dosing) 1 each MISCELLANE DAILY PRN PRN Reason: Consult order Pharmacy Consult (Consult Rx Vancomycin Dosing) 1 each MISCELLANE DAILY PRN PRN Reason: Consult order Senna (Sennosides 8.6 Mg Tablet) 17.2 mg PO BEDTIME PRN PRN Reason: Constipation Sodium Chloride (0.9 % Sodium Chloride Flush 3 Ml Syringe) 3 ml IVFLUSH QSHIFT [facility] Last Admin: 05/04/21 08:23 Dose: 3 ml Documented by: Ziprasidone (Ziprasidone 20 Mg Capsule) 20 mg PO BID [facility] Last Admin: 05/04/21 08:24 Dose: 20 mg Documented by: Labs CBC & Chem 7: 05/03/21 06:32 05/04/21 08:34 Labs: Laboratory Results - last 24 hr 05/03/21 05/03/21 05/04/21 17:55 21:03 07:12 Estim Creat Clear Calc Estimated GFR POC Glucose 187 H 187 H 166 H 05/04/21 05/04/21 08:34 11:13 Estim Creat Clear Calc 60.5 Estimated GFR > 60 POC Glucose 143 H Microbiology Microbiology Results: Microbiology 05/01/21 06:49 Urine clean catch - Urine horowitz top Urine Culture - Preliminar y Gram negative blair 05/01/21 22:35 Blood - Venous Blood Culture - Preliminary No growth after 48 hours. 05/01/21 22:32 Blood - Venous Blood Culture - Preliminary No growth after 48 hours. Quality Stroke Does the patient have a stroke diagnosis?: No VTE Prior VTE?: No VTE Risk Level:: Medical - moderate - high VTE Device Contraindication: Treatment Not Indicated VTE Drug Contraindication: N/A - Med Ordered
[2021-05-04 16:25] LABS: Glucose, Whole Blood 133 mg/dL (60-115)
[2021-05-04 19:42] VITALS: BP 118/66; PULSE 96; RESP 18; TEMP 36.6; O2SAT 93
[2021-05-04 20:16] LABS: Glucose, Whole Blood 143 mg/dL (60-115)
[2021-05-04] MEDS: clonazePAM 0.5 MG TABLET 0.25 MG PO (21:32)
[2021-05-05] VITALS (7 sets, daily range): BP systolic 107–181; BP diastolic 54–90; PULSE 80–131; RESP 18–20; TEMP 35.9–36.8; O2SAT 90–98
[2021-05-05 02:35] LABS: Hematocrit 36.5 % (37.0-47.0); Hemoglobin 11.4 g/dl (12.0-16.0); Mean Corpuscular HGB Conc 31.2 g/dl (31.0-35.0); Mean Corpuscular Hemoglobin 33.2 pg (27.0-33.0); Mean Corpuscular Volume 106.4 fL (80.0-98.0); Mean Platelet Volume 10.1 fL (9.4-12.3); Platelet Count 376 X10*3/uL (160-400); Red Blood Count 3.43 X10*6/uL (4.20-5.50); Red Cell Distribution Width 14.4 % (11.0-16.0); White Blood Count 12.5 X10*3/uL (4.8-10.8)
[2021-05-05 02:46] LABS: Anion Gap 12 (12-20); Blood Urea Nitrogen 16 mg/dL (9-16); Calcium 8.1 mg/dL (8.4-10.2); Carbon Dioxide 22 mmol/L (22-29); Chloride 116 mmol/L (96-108); Creatinine Clr Calc Pharmacy 63.3; Estimated Glomerular Filt Rate > 60; Glucose Random 159 mg/dL (60-115); Potassium 4.4 mmol/L (3.3-5.1); Sodium 146 mmol/L (135-145)
[2021-05-05] MEDS: cefEPime HCl 1 GM in 0.9 % Sodium Chloride 50 ML IV (02:48)
[2021-05-05 02:51] LABS: Vancomycin Trough 13.8 mcg/mL (10.0-20.0)
[2021-05-05] MEDS: vancomycin HCL 1,250 MG in 0.9 % Sodium Chloride 250 ML 166.67 MG IV (03:53)
[2021-05-05] MEDS: Heparin Sodium,Porcine 5,000 UNIT/ML VIAL 5000 UNIT SUBCUT ×3 (05:54→22:03)
[2021-05-05] MEDS: Omeprazole 40 MG CAPSULE.DR PO (05:54)
[2021-05-05] MEDS: Levothyroxine Sodium 75 MCG TABLET PO (05:54)
[2021-05-05 07:37] LABS: Glucose, Whole Blood 170 mg/dL (60-115)
[2021-05-05] MEDS: Insulin Lispro 100 UNIT/ML 3 ML VIAL SUBCUT (07:50)
[2021-05-05] MEDS: Gabapentin 400 MG CAPSULE PO (09:00)
[2021-05-05] MEDS: FLUoxetine HCl 20 MG CAPSULE 40 MG PO (09:00)
[2021-05-05] MEDS: Ziprasidone 20 MG CAPSULE PO ×2 (09:00→22:02)
[2021-05-05] MEDS: Loratadine 10 MG TABLET PO (09:00)
[2021-05-05] MEDS: Benztropine Mesylate 1 MG TABLET PO ×2 (09:00→22:02)
[2021-05-05] MEDS: Cyanocobalamin (Vitamin B-12) 100 MCG TABLET 200 MCG PO (09:00)
[2021-05-05] MEDS: FLUoxetine HCl 10 MG CAPSULE PO (09:00)
[2021-05-05] MEDS: Gabapentin 600 MG TABLET PO ×2 (09:01→22:02)
[2021-05-05] MEDS: 0.9 % Sodium Chloride 1,000 ML 75 ML IVCONT (09:17)
--- NOTE | 2021-05-05 10:36 | MHC.SLORD ---
Speech Language Pathology Order Status: Attempted to see patient this morning for dysphagia treatment. However, patient was sleepy and would not remain awake more than a few seconds. Patient did not respond to verbal stimuli or sternal rub. ACADEMIC DIRECTOR connected with RN via [employer] Message. RN reports that patient has been tolerating diet textures without any difficulty. Patient is on PUREED (NDD1) solids and NECTAR THICK liquids, crushed meds. ACADEMIC DIRECTOR to follow up tomorrow morning. If there are any concerns before then, please contact ACADEMIC DIRECTOR via [employer] Message or ext. [phone].
--- NOTE | 2021-05-05 11:13 | PM.IMPN ---
Progress Note: A&P (1) Hypernatremia: Status: Acute (2) Tremor: Status: Acute (3) Acute UTI: Status: Acute (4) Bilateral pneumonia: Status: Acute Assessment and Plan: 75-year-old female with a past medical history of hypertension, hyperlipidemia, diabetes, CKD, paroxysmal AFib-not on anticoagulation, vitamin B12 deficiency, hypothyroidism, dysphagia, GERD, osteoarthritis, residential resident, history of UTIs, history of aspiration pneumonia sent from the residential with a chief complaint of poor oral intake for the past few days and nausea/vomiting Concern for aspiration pneumonia.? Admitted for further management. Hypernatremia mild will give gentle fluids and repeat Tremors. no hx of parkinsons seen and evaluated by Neurology with no recommendation for inpatient intervention she may be seen as an outpatient after she has completed her treatment for infection There was some noted visual field problems with history of left posterior cerebral artery infarct, Neurology recommendation for MRI without contrast to evaluate for right hemispheric stroke, if negative cervical spine MRI is recommended. UTI /Aspiration pneumonia. CT chest shows?Bilateral consolidations, most prominently in the posterior right lower lobe, which may be secondary to aspiration and/or pneumonia in the proper clinical setting. Urine cx showed pseudomonas aeruginosa, blood cx neg after 48hrs Vanco and cefepime stopped, meropenem started Id following Speech and swallow eval rec puree diet cx neg after 48hrs pt on Suppl oxygen. Toxic metabolic encephalopathy. secondary to severe sepsis. More awake today Supportive care. Severe sepsis. tachycardia, leukocytosis, lactic acidosis. resolved Likely in the setting of UTI/PNA.? Blood pressure improved with IV fluids.? follow cx Nausea/Vomiting Ct abd shows partial SBO/Gall stones/Biliary sludge, No SBO according to general surgery team Keep NPO for now d/t dysphagia JUAN. Likely prerenal.?Resolving Avoid nephrotoxins.? Hold home enalapril. Hyperkalemia. Likely in the setting of JUAN.?Resolved EKG showed no acute changes.? Will repeat BMP. Diabetes Insulin sliding scale NPO for now Hypothyroidism. Continue home levothyroxine Hypertension Hold home antihypertensives d/t hypotension Paroxysmal AFib Patient on anticoagulation.? P.r.n. metoprolol for tachycardia. History of bipolar/major depression Continue home clonazepam? Continue fluoxetine, ziprasidone Dysphagia puree diet ? aspiration precautions DVT prophylaxis:? Subcu heparin Attending Dr. Zamora Subjective Subjective Date of Service: 05/05/21 Review of Systems Follow up UTI and PNA more awake today no c/o pain, although she states that she justs feels unwell Physical Exam Vital Signs: Vital Signs: Last Vital Signs Temp 98.2 F 05/05/21 07:45 Pulse 90 05/05/21 07:45 Resp 18 05/05/21 07:45 BP 117/67 05/05/21 07:45 Pulse Ox 93 05/05/21 07:45 Body Mass Index 31.3 Appearing in no acute distress lung sounds are clear to auscultation heart regular rate rhythm, clear S1, S2 positive bowel sounds, abdomen is soft, nontender neuro patient is alert, tremulous Objective Data Current Medications Acetaminophen (Acetaminophen 325 Mg Tablet) 650 mg PO Q6H PRN PRN Reason: Pain, Mild (Pain Scale 1-3) Last Admin: 05/02/21 17:59 Dose: 650 mg Documented by: Benztropine Mesylate (Benztropine Mesylate 1 Mg Tablet) 1 mg PO BID [facility] Last Admin: 05/05/21 09:00 Dose: 1 mg Documented by: Clonazepam (Clonazepam 0.5 Mg Tablet) 0.25 mg PO BEDTIME [facility] Last Admin: 05/04/21 21:32 Dose: 0.25 mg Documented by: Cyanocobalamin (Cyanocobalamin (Vitamin B-12) 100 Mcg Tablet) 200 mcg PO DAILY [facility] Last Admin: 05/05/21 09:00 Dose: 200 mcg Documented by: Dextrose (Dextrose 50 % 25 Gm/50 Ml Vial) 25 gm IVPUSH Q15M PRN; Protocol PRN Reason: per Hypoglycemia Standing Ord. Fluoxetine HCl (Fluoxetine Hcl 10 Mg Capsule) 10 mg PO DAILY [facility] Last Admin: 05/05/21 09:00 Dose: 10 mg Documented by: Fluoxetine HCl (Fluoxetine Hcl 20 Mg Capsule) 40 mg PO DAILY [facility] Last Admin: 05/05/21 09:00 Dose: 40 mg Documented by: Gabapentin (Gabapentin 400 Mg Capsule) 400 mg PO DAILY [facility] Last Admin: 05/05/21 09:00 Dose: 400 mg Documented by: Gabapentin (Gabapentin 600 Mg Tablet) 600 mg PO BID [facility] Last Admin: 05/05/21 09:01 Dose: 600 mg Documented by: Glucose (Glucose Gel 15 Gm Gel..Gram.) 15 gm PO Q15M PRN; Protocol PRN Reason: per Hypoglycemia Standing Ord. Heparin Sodium (Porcine) (Heparin Sodium,Porcine 5,000 Unit/Ml Vial) 5,000 unit SUBCUT Q8H [facility] Last Admin: 05/05/21 05:54 Dose: 5,000 unit Documented by: Sodium Chloride (Ns) 1,000 mls @ 75 mls/hr IVCONT .[id number] [facility] Last Admin: 05/05/21 09:17 Dose: 75 mls/hr Documented by: Meropenem 1 gm/ Sodium (Chloride) 100 mls @ 100 mls/hr IV Q8H [facility] Last Infusion: 05/05/21 10:37 Dose: Infused Documented by: Insulin Human Lispro (Insulin Lispro 100 Unit/Ml 3 Ml Vial) 0 unit SUBCUT QIDACHS [facility]; Protocol Last Admin: 05/05/21 07:50 Dose: 2 unit Documented by: Levothyroxine Sodium (Levothyroxine Sodium 75 Mcg Tablet) 75 mcg PO DAILY@0600 [facility] Last Admin: 05/05/21 05:54 Dose: 75 mcg Documented by: Loratadine (Loratadine 10 Mg Tablet) 10 mg PO DAILY [facility] Last Admin: 05/05/21 09:00 Dose: 10 mg Documented by: Melatonin (Melatonin 3 Mg Tablet) 6 mg PO BEDTIME PRN PRN Reason: Insomnia Nitroglycerin (Nitroglycerin 0.4 Mg Tab.Subl) 0.4 mg SUBLINGUAL Q5MX3 PRN PRN Reason: Chest Pain Omeprazole (Omeprazole 40 Mg Capsule.Dr) 40 mg PO DAILY@0630 [facility] Last Admin: 05/05/21 05:54 Dose: 40 mg Documented by: Pharmacy Consult (Consult Rx Vancomycin Dosing) 1 each MISCELLANE DAILY PRN PRN Reason: Consult order Pharmacy Consult (Consult Rx Vancomycin Dosing) 1 each MISCELLANE DAILY PRN PRN Reason: Consult order Senna (Sennosides 8.6 Mg Tablet) 17.2 mg PO BEDTIME PRN PRN Reason: Constipation Sodium Chloride (0.9 % Sodium Chloride Flush 3 Ml Syringe) 3 ml IVFLUSH QSHIFT [facility] Last Admin: 05/05/21 09:00 Dose: Not Given Documented by: Ziprasidone (Ziprasidone 20 Mg Capsule) 20 mg PO BID [facility] Last Admin: 05/05/21 09:00 Dose: 20 mg Documented by: Labs CBC & Chem 7: 05/05/21 02:10 05/05/21 02:10 Labs: Laboratory Results - last 24 hr 05/04/21 05/04/21 05/04/21 11:13 16:15 20:06 MCV MCH MCHC RDW Plt Count MPV Absolute Nucleated RBC Nucleated RBC % (auto) Anion Gap Estim Creat Clear Calc Estimated GFR POC Glucose 143 H 133 H 143 H Random Glucose Calcium Vancomycin Trough 05/05/21 05/05/21 05/05/21 02:10 02:10 02:10 MCV 106.4 H MCH 33.2 H MCHC 31.2 RDW 14.4 Plt Count 376 MPV 10.1 Absolute Nucleated RBC 0.000 Nucleated RBC % (auto) 0.0 Anion Gap 12 Estim Creat Clear Calc 63.3 Estimated GFR > 60 POC Glucose Random Glucose 159 H Calcium 8.1 L Vancomycin Trough 13.8 05/05/21 07:31 MCV MCH MCHC RDW Plt Count MPV Absolute Nucleated RBC Nucleated RBC % (auto) Anion Gap Estim Creat Clear Calc Estimated GFR POC Glucose 170 H Random Glucose Calcium Vancomycin Trough Microbiology Microbiology Results: Microbiology 05/01/21 06:49 Urine clean catch - Urine horowitz top Urine Culture - Final Pseudomonas aeruginosa 05/01/21 22:35 Blood - Venous Blood Culture - Preliminary No growth after 48 hours. 05/01/21 22:32 Blood - Venous Blood Culture - Preliminary No growth after 48 hours. Quality Stroke Does the patient have a stroke diagnosis?: No VTE Prior VTE?: No VTE Risk Level:: Medical - moderate - high VTE Device Contraindication: Treatment Not Indicated VTE Drug Contraindication: N/A - Med Ordered
[2021-05-05 12:07] LABS: Glucose, Whole Blood 124 mg/dL (60-115)
--- NOTE | 2021-05-05 13:10 | PM.IDPN ---
Subjective Subjective Date of Service: 05/05/21 Critical Care Time (minutes): 15 Comment: She has Pseudomonas in urine She has no complaints Objective Data Labs CBC & Chem 7: 05/05/21 02:10 05/05/21 02:10 Labs: Laboratory Results - last 24 hr 05/04/21 05/04/21 05/05/21 16:15 20:06 02:10 WBC RBC Hgb Hct MCV MCH MCHC RDW Plt Count MPV Absolute Nucleated RBC Nucleated RBC % (auto) Sodium Potassium Chloride Carbon Dioxide Anion Gap BUN Creatinine Estim Creat Clear Calc Estimated GFR POC Glucose 133 H 143 H Random Glucose Calcium Vancomycin Trough 13.8 05/05/21 05/05/21 05/05/21 02:10 02:10 07:31 WBC 12.5 H RBC 3.43 L Hgb 11.4 L Hct 36.5 L MCV 106.4 H MCH 33.2 H MCHC 31.2 RDW 14.4 Plt Count 376 MPV 10.1 Absolute Nucleated RBC 0.000 Nucleated RBC % (auto) 0.0 Sodium 146 H Potassium 4.4 Chloride 116 H Carbon Dioxide 22 Anion Gap 12 BUN 16 D Creatinine 0.86 Estim Creat Clear Calc 63.3 Estimated GFR > 60 POC Glucose 170 H Random Glucose 159 H Calcium 8.1 L Vancomycin Trough 05/05/21 12:04 WBC RBC Hgb Hct MCV MCH MCHC RDW Plt Count MPV Absolute Nucleated RBC Nucleated RBC % (auto) Sodium Potassium Chloride Carbon Dioxide Anion Gap BUN Creatinine Estim Creat Clear Calc Estimated GFR POC Glucose 124 H Random Glucose Calcium Vancomycin Trough Microbiology Microbiology Results: Microbiology 05/01/21 06:49 Urine clean catch - Urine horowitz top Urine Culture - Final Pseudomonas aeruginosa 05/01/21 22:35 Blood - Venous Blood Culture - Preliminary No growth after 48 hours. 05/01/21 22:32 Blood - Venous Blood Culture - Preliminary No growth after 48 hours. Physical Exam Vital Signs: Vital Signs: Last Vital Signs Temp 98.2 F 05/05/21 07:45 Pulse 88 05/05/21 12:00 Resp 18 05/05/21 12:00 BP 136/60 05/05/21 12:00 Pulse Ox 96 05/05/21 12:00 Body Mass Index 31.3 Const: General: cooperative Eyes: General: appearance normal, both eyes and all related structures Resp: Effort & Inspection: normal respiratory effort Cardio: Rate: regular rate Rhythm: regular rhythm GI: Palpation (GI): Soft to palpation and nontender Assessment and Plan Assessment and plan (1) Toxic metabolic encephalopathy: Problem details: Pseudomonas urine 7 days [place] Status: Acute (2) Severe sepsis: Status: Acute Time Spent With Patient Time: Total time spent is greater than 50% in coordination of care (as documented) at patient's floor/unit and/or counseling patient: Time with patient: 15 - 24 minutes
[2021-05-05 16:07] LABS: Glucose, Whole Blood 121 mg/dL (60-115)
[2021-05-05] MEDS: 0.9 % Sodium Chloride Flush 3 ML SYRINGE IVFLUSH ×2 (17:01→22:03)
[2021-05-05 19:53] LABS: Glucose, Whole Blood 130 mg/dL (60-115)
[2021-05-05] MEDS: clonazePAM 0.5 MG TABLET 0.25 MG PO (22:01)
[2021-05-06] VITALS (7 sets, daily range): BP systolic 128–159; BP diastolic 68–110; PULSE 78–98; RESP 16–20; TEMP 36.3–37.6; O2SAT 92–97
[2021-05-06] MEDS: Acetaminophen 325 MG TABLET 650 MG PO ×2 (00:53→21:35)
[2021-05-06] MEDS: Omeprazole 40 MG CAPSULE.DR PO (05:44)
[2021-05-06] MEDS: Levothyroxine Sodium 75 MCG TABLET PO (05:44)
[2021-05-06] MEDS: Heparin Sodium,Porcine 5,000 UNIT/ML VIAL 5000 UNIT SUBCUT ×3 (05:44→21:35)
[2021-05-06 07:03] LABS: Hematocrit 33.5 % (37.0-47.0); Hemoglobin 10.4 g/dl (12.0-16.0); Mean Corpuscular Hemoglobin 32.3 pg (27.0-33.0); Platelet Count 366 X10*3/uL (160-400); Red Blood Count 3.22 X10*6/uL (4.20-5.50); White Blood Count 8.6 X10*3/uL (4.8-10.8)
[2021-05-06 07:20] LABS: Glucose, Whole Blood 131 mg/dL (60-115)
[2021-05-06 07:43] LABS: Anion Gap 12 (12-20); Blood Urea Nitrogen 10 mg/dL (9-16); Calcium 7.6 mg/dL (8.4-10.2); Carbon Dioxide 22 mmol/L (22-29); Chloride 113 mmol/L (96-108); Creatinine Clr Calc Pharmacy 74.5; Estimated Glomerular Filt Rate > 60; Glucose Random 128 mg/dL (60-115); Potassium 3.7 mmol/L (3.3-5.1); Sodium 143 mmol/L (135-145)
[2021-05-06] MEDS: Cyanocobalamin (Vitamin B-12) 100 MCG TABLET 200 MCG PO (10:01)
[2021-05-06] MEDS: FLUoxetine HCl 20 MG CAPSULE 40 MG PO (10:01)
[2021-05-06] MEDS: Gabapentin 600 MG TABLET PO ×2 (10:02→21:35)
[2021-05-06] MEDS: Ziprasidone 20 MG CAPSULE PO ×2 (10:02→21:35)
[2021-05-06] MEDS: Benztropine Mesylate 1 MG TABLET PO ×2 (10:02→21:35)
[2021-05-06] MEDS: FLUoxetine HCl 10 MG CAPSULE PO (10:02)
[2021-05-06] MEDS: Gabapentin 400 MG CAPSULE PO (10:03)
[2021-05-06] MEDS: Loratadine 10 MG TABLET PO (10:03)
[2021-05-06] MEDS: 0.9 % Sodium Chloride Flush 3 ML SYRINGE IVFLUSH ×3 (10:14→21:36)
[2021-05-06 11:17] LABS: Glucose, Whole Blood 127 mg/dL (60-115)
--- NOTE | 2021-05-06 11:56 | MHC.SL.DTX ---
Dysphagia Diet modifications: Last documented Solid diet consistencies: Pureed (NDD1) Last documented Liquid consistency: [place] Thick Last documented Medication Administration: crushed in puree Changes made to current diet?: No Liquid Consistency and Strategies: Liquid Intake Recommendation: [place] Thick Compensatory Strategies for Safe Swallow: Small Sips No Straws Compensatory Strategies for Safe Swallow(b): Sitting Upright (90 deg) No Straw Small Bites and Sips Alternate Liquids/Solids Solid Food Consistency: Dietary Recommendations: Pureed (NDD1) Additional Modifications to Solids: Oral Medication Intake: Crushed with Puree Strategies and Precautions to be Taken for Safe Swallow: Sitting Upright (90 deg) No Straw Small Bites and Sips Alternate Liquids/Solids Supervision While Eating and/Drinking: Total Assistance Swallowing Recommended Treatments: Compens. Strategy Educat. Level of Impact on: Daily activities: Moderate Interpersonal interactions: Education: None Employment: None Community: Moderate Prognosis for Improvement: Fair Recommendation for Speech: Inpatient Speech Therapy Additional Comments: Treatment: Pt was seen for dysphagia treatment while seated upright in bed. Pt was alert. Current diet consistency NDD1 PUREED solids with NECTAR THICK liquids. Pt unable to participate in ST 05/04 or 05/05 due to lethargy. Pt accepted minimal trials of nectar thick liquids via clinician controlled cup sips. Pt demonstrated a delayed pharyngeal swallow trigger and no overt s/s aspiration. She accepted 1 tsp of applesauce and then stated she did not like it. She declined an alternative offered, stating she did not feel well. Continue with current diet consistency, aspiration precautions, and 1:1 assist with all PO intake. Pt remains dependent for all PO intake. QUALITY ASSURANCE MONITOR [facility] will continue to follow pt throughout her stay. Base Manager Clinican/Clinical Fellow: No Supervisory Statement: I have reviewed and agree with the student/clinical fellow's documentation: N/A Speech Language Pathologist: Celestina Kahn M.A., [facility]-QUALITY ASSURANCE MONITOR [facility]
--- NOTE | 2021-05-06 12:24 | MHC.CM.PN ---
per rounds at this time no dc date at this time dc plan reman ins retrun to ruma bass
--- NOTE | 2021-05-06 13:43 | MHC.CLN ---
F/U 100% PO X1 MEAL DIET RX: 2GM NA PUREED WITH NT LIQ-APPROPRIATE CAREER TECHNOLOGY TEACHER FOLLOWING FOR APPROPRIATE DIET CONSISTENCY NOTED PT IS LETHARGIC AND DROWSY SANDRITA REMAINS 12 WITH FRAGILE SKIN RECOMMEND ADDING ENSURE BID TO INCREASE KCALS MONITOR PO INTAKE CLOSELY
--- NOTE | 2021-05-06 14:04 | P.PNIM_ITS ---
Subjective Subjective Date of Service: 05/06/21 Interval History: f/u uti, pna, encephallpathy,,she is awak but not saying much Review of Systems no no able to obtain o/w Physical Exam Vital Signs: Vital Signs: Last Vital Signs Temp 99.7 F 05/06/21 11:49 Pulse 98 05/06/21 11:49 Resp 18 05/06/21 11:49 BP 159/110 H 05/06/21 11:49 Pulse Ox 96 05/06/21 11:49 Body Mass Index 31.3 Const: Other: General: alert, didnn't talek, no distress Resp: CTA bilateral CVS: S1,S2,RRR GI: +BS, NT, no distention Skin: No rash no rash, Neuro: motor grossly intact Psych: flat Objective Data Active Medications Acetaminophen (Acetaminophen 325 Mg Tablet) 650 mg PO Q6H PRN PRN Reason: Pain, Mild (Pain Scale 1-3) Last Admin: 05/06/21 00:53 Dose: 650 mg Documented by: SULTANA Benztropine Mesylate (Benztropine Mesylate 1 Mg Tablet) 1 mg PO BID [facility] Last Admin: 05/06/21 10:02 Dose: 1 mg Documented by: MAKEDA Clonazepam (Clonazepam 0.5 Mg Tablet) 0.25 mg PO BEDTIME [facility] Last Admin: 05/05/21 22:01 Dose: 0.25 mg Documented by: SULTANA Comments: per md order Cyanocobalamin (Cyanocobalamin (Vitamin B-12) 100 Mcg Tablet) 200 mcg PO DAILY [facility] Last Admin: 05/06/21 10:01 Dose: 200 mcg Documented by: MAKEDA Dextrose (Dextrose 50 % 25 Gm/50 Ml Vial) 25 gm IVPUSH Q15M PRN; Protocol PRN Reason: per Hypoglycemia Standing Ord. Fluoxetine HCl (Fluoxetine Hcl 10 Mg Capsule) 10 mg PO DAILY [facility] Last Admin: 05/06/21 10:02 Dose: 10 mg Documented by: MAKEDA Fluoxetine HCl (Fluoxetine Hcl 20 Mg Capsule) 40 mg PO DAILY [facility] Last Admin: 05/06/21 10:01 Dose: 40 mg Documented by: MAKEDA Gabapentin (Gabapentin 400 Mg Capsule) 400 mg PO DAILY [facility] Last Admin: 05/06/21 10:03 Dose: 400 mg Documented by: MAKEDA Gabapentin (Gabapentin 600 Mg Tablet) 600 mg PO BID [facility] Last Admin: 05/06/21 10:02 Dose: 600 mg Documented by: MAKEDA Glucose (Glucose Gel 15 Gm Gel..Gram.) 15 gm PO Q15M PRN; Protocol PRN Reason: per Hypoglycemia Standing Ord. Heparin Sodium (Porcine) (Heparin Sodium,Porcine 5,000 Unit/Ml Vial) 5,000 unit SUBCUT Q8H [facility] Last Admin: 05/06/21 05:44 Dose: 5,000 unit Documented by: SULTANA Meropenem 1 gm/ Sodium (Chloride) 100 mls @ 100 mls/hr IV Q8H [facility] Last Infusion: 05/06/21 12:56 Dose: 0 mls/hr Documented by: MAKEDA Insulin Human Lispro (Insulin Lispro 100 Unit/Ml 3 Ml Vial) 0 unit SUBCUT QIDACHS [facility]; Protocol Last Admin: 05/06/21 12:56 Dose: Not Given Documented by: MAKEDA Non-Admin Reason: No Insulin Coverage Levothyroxine Sodium (Levothyroxine Sodium 75 Mcg Tablet) 75 mcg PO DAILY@0600 [facility] Last Admin: 05/06/21 05:44 Dose: 75 mcg Documented by: SULTANA Loratadine (Loratadine 10 Mg Tablet) 10 mg PO DAILY [facility] Last Admin: 05/06/21 10:03 Dose: 10 mg Documented by: MAKEDA Melatonin (Melatonin 3 Mg Tablet) 6 mg PO BEDTIME PRN PRN Reason: Insomnia Nitroglycerin (Nitroglycerin 0.4 Mg Tab.Subl) 0.4 mg SUBLINGUAL Q5MX3 PRN PRN Reason: Chest Pain Omeprazole (Omeprazole 40 Mg Capsule.Dr) 40 mg PO DAILY@0630 [facility] Last Admin: 05/06/21 05:44 Dose: 40 mg Documented by: SULTANA Pharmacy Consult (Consult Rx Vancomycin Dosing) 1 each MISCELLANE DAILY PRN PRN Reason: Consult order Pharmacy Consult (Consult Rx Vancomycin Dosing) 1 each MISCELLANE DAILY PRN PRN Reason: Consult order Senna (Sennosides 8.6 Mg Tablet) 17.2 mg PO BEDTIME PRN PRN Reason: Constipation Sodium Chloride (0.9 % Sodium Chloride Flush 3 Ml Syringe) 3 ml IVFLUSH QSHIFT [facility] Last Admin: 05/06/21 10:14 Dose: 3 ml Documented by: MAKEDA Ziprasidone (Ziprasidone 20 Mg Capsule) 20 mg PO BID [facility] Last Admin: 05/06/21 10:02 Dose: 20 mg Documented by: MAKEDA Labs CBC & Chem 7: 05/06/21 06:44 05/06/21 06:44 Labs: Laboratory Results - last 24 hr 05/05/21 05/05/21 05/06/21 16:04 19:49 06:44 MCV 104.0 H MCH 32.3 MCHC 31.0 RDW 14.0 Plt Count 366 MPV 10.0 Absolute Nucleated RBC 0.000 Nucleated RBC % (auto) 0.0 Anion Gap Estim Creat Clear Calc Estimated GFR POC Glucose 121 H 130 H Random Glucose Calcium 05/06/21 05/06/21 05/06/21 06:44 07:16 11:02 MCV MCH MCHC RDW Plt Count MPV Absolute Nucleated RBC Nucleated RBC % (auto) Anion Gap 12 Estim Creat Clear Calc 74.5 Estimated GFR > 60 POC Glucose 131 H 127 H Random Glucose 128 H Calcium 7.6 L D Assessment and Plan (1) Acute UTI: Status: Acute Assessment and Plan: 75-year-old female with a past medical history of hypertension, hyperlipidemia, diabetes, CKD, paroxysmal AFib-not on anticoagulation, vitamin B12 deficiency, hypothyroidism, dysphagia, GERD, osteoarthritis, [place] [facility] resident, history of UTIs, history of aspiration pneumonia sent [place] the [place] [facility] with a chief complaint of poor oral intake for the past few days and nausea/vomiting Concern for aspiration pneumonia.? Admitted for further management. Sever3 sepsis. resolved Pseudomonas UTI Aspiration pneumonia -clnically responding to treatment -continue Meropenem for 7 days per ID, initially was on vanco and cefepime -requesting mid line for this. Toxic metabolic encephalopathy--related UTI, high sodium, pna--she's improved, baseline not quite clear Hypernatremia--very mild 146, now 143 Tremors. no hx of parkinsons--appear chronic, MRI no stroke, Neuro recommend further eval after completing UTI, PNA treatment Nausea/Vomiting--likely related to UTI, no SBO on CT, gallstone biliary sludge, no intervention per surgery JUAN. Likely prerenal. Resolved Hyperkalemia. Likely in the setting of JUAN.?resolved Diabetes--SSI Hypothyroidism. Continue home levothyroxine Hypertension--BP meds have been on hold, d/t hypotension, BP now on high side, restart meds Paroxysmal AFib--not anticoagulated, HR controlled, no rate controlling agents History of bipolar/major depression Continue home clonazepam? Continue fluoxetine, ziprasidone Dysphagia puree diet ? aspiration precautions DVT prophylaxis:? Subcu heparin Attending Dr. Zamora Quality Stroke Does the patient have a stroke diagnosis?: No VTE Prior VTE?: No VTE Risk Level:: Medical - moderate - high VTE Device Contraindication: Treatment Not Indicated VTE Drug Contraindication: N/A - Med Ordered
[2021-05-06 16:13] LABS: Glucose, Whole Blood 133 mg/dL (60-115)
[2021-05-06 19:37] LABS: Glucose, Whole Blood 119 mg/dL (60-115)
[2021-05-06] MEDS: clonazePAM 0.5 MG TABLET 0.25 MG PO (21:32)
[2021-05-07 02:33] LABS: Vancomycin Trough 10.3 mcg/mL (10.0-20.0)
[2021-05-07 03:51] VITALS: BP 133/84; PULSE 89; RESP 20; TEMP 36.8; O2SAT 97
[2021-05-07] MEDS: Levothyroxine Sodium 75 MCG TABLET PO (05:24)
[2021-05-07] MEDS: Omeprazole 40 MG CAPSULE.DR PO (05:25)
[2021-05-07] MEDS: Heparin Sodium,Porcine 5,000 UNIT/ML VIAL 5000 UNIT SUBCUT ×3 (05:25→21:19)
[2021-05-07 06:55] LABS: Creatinine Clr Calc Pharmacy 76.7; Estimated Glomerular Filt Rate > 60
[2021-05-07 07:48] LABS: Glucose, Whole Blood 115 mg/dL (60-115)
[2021-05-07 08:00] VITALS: BP 139/76; PULSE 82; RESP 16; TEMP 36.3; O2SAT 94
[2021-05-07] MEDS: 0.9 % Sodium Chloride Flush 3 ML SYRINGE IVFLUSH ×3 (09:42→21:19)
[2021-05-07] MEDS: Loratadine 10 MG TABLET PO (09:42)
[2021-05-07] MEDS: FLUoxetine HCl 20 MG CAPSULE 40 MG PO (09:42)
[2021-05-07] MEDS: Cyanocobalamin (Vitamin B-12) 100 MCG TABLET 200 MCG PO (09:42)
[2021-05-07] MEDS: Gabapentin 600 MG TABLET PO ×2 (09:42→21:19)
[2021-05-07] MEDS: Ziprasidone 20 MG CAPSULE PO ×2 (09:42→21:19)
[2021-05-07] MEDS: FLUoxetine HCl 10 MG CAPSULE PO (09:42)
[2021-05-07] MEDS: Benztropine Mesylate 1 MG TABLET PO ×2 (09:42→21:19)
[2021-05-07] MEDS: Gabapentin 400 MG CAPSULE PO (09:42)
--- NOTE | 2021-05-07 11:10 | HO.PM.IMPN ---
Subjective Subjective Date of Service: 05/07/21 Interval History: f/u uti, pna, encephallpathy, more awake, alert, refused midline yesterday Review of Systems no fever no sob Physical Exam Vital Signs: Vital Signs: Last Vital Signs Temp 97.3 F 05/07/21 08:00 Pulse 82 05/07/21 08:00 Resp 16 05/07/21 08:00 BP 139/76 05/07/21 08:00 Pulse Ox 94 05/07/21 08:00 Body Mass Index 31.3 Const: Other: General: alert, didnn't talek, no distress Resp: CTA bilateral CVS: S1,S2,RRR GI: +BS, NT, no distention Skin: No rash no rash, Neuro: motor grossly intact Psych: flat Objective Data Active Medications Acetaminophen (Acetaminophen 325 Mg Tablet) 650 mg PO Q6H PRN PRN Reason: Pain, Mild (Pain Scale 1-3) Last Admin: 05/06/21 21:35 Dose: 650 mg Documented by: OLE Benztropine Mesylate (Benztropine Mesylate 1 Mg Tablet) 1 mg PO BID [facility] Last Admin: 05/07/21 09:42 Dose: 1 mg Documented by: JUANIS Clonazepam (Clonazepam 0.5 Mg Tablet) 0.25 mg PO BEDTIME [facility] Last Admin: 05/06/21 21:32 Dose: 0.25 mg Documented by: OLE Cyanocobalamin (Cyanocobalamin (Vitamin B-12) 100 Mcg Tablet) 200 mcg PO DAILY [facility] Last Admin: 05/07/21 09:42 Dose: 200 mcg Documented by: JUANIS Dextrose (Dextrose 50 % 25 Gm/50 Ml Vial) 25 gm IVPUSH Q15M PRN; Protocol PRN Reason: per Hypoglycemia Standing Ord. Fluoxetine HCl (Fluoxetine Hcl 10 Mg Capsule) 10 mg PO DAILY [facility] Last Admin: 05/07/21 09:42 Dose: 10 mg Documented by: JUANIS Fluoxetine HCl (Fluoxetine Hcl 20 Mg Capsule) 40 mg PO DAILY [facility] Last Admin: 05/07/21 09:42 Dose: 40 mg Documented by: JUANIS Gabapentin (Gabapentin 400 Mg Capsule) 400 mg PO DAILY [facility] Last Admin: 05/07/21 09:42 Dose: 400 mg Documented by: JUANIS Gabapentin (Gabapentin 600 Mg Tablet) 600 mg PO BID [facility] Last Admin: 05/07/21 09:42 Dose: 600 mg Documented by: JUANIS Glucose (Glucose Gel 15 Gm Gel..Gram.) 15 gm PO Q15M PRN; Protocol PRN Reason: per Hypoglycemia Standing Ord. Heparin Sodium (Porcine) (Heparin Sodium,Porcine 5,000 Unit/Ml Vial) 5,000 unit SUBCUT Q8H [facility] Last Admin: 05/07/21 05:25 Dose: 5,000 unit Documented by: OLE Meropenem 1 gm/ Sodium (Chloride) 100 mls @ 100 mls/hr IV Q8H [facility] Last Infusion: 05/07/21 10:46 Dose: 0 mls/hr Documented by: JUANIS Insulin Human Lispro (Insulin Lispro 100 Unit/Ml 3 Ml Vial) 0 unit SUBCUT QIDACHS [facility]; Protocol Last Admin: 05/07/21 07:50 Dose: Not Given Documented by: JUANIS Non-Admin Reason: No Insulin Coverage Levothyroxine Sodium (Levothyroxine Sodium 75 Mcg Tablet) 75 mcg PO DAILY@0600 [facility] Last Admin: 05/07/21 05:24 Dose: 75 mcg Documented by: OLE Loratadine (Loratadine 10 Mg Tablet) 10 mg PO DAILY [facility] Last Admin: 05/07/21 09:42 Dose: 10 mg Documented by: JUANIS Melatonin (Melatonin 3 Mg Tablet) 6 mg PO BEDTIME PRN PRN Reason: Insomnia Nitroglycerin (Nitroglycerin 0.4 Mg Tab.Subl) 0.4 mg SUBLINGUAL Q5MX3 PRN PRN Reason: Chest Pain Omeprazole (Omeprazole 40 Mg Capsule.Dr) 40 mg PO DAILY@0630 [facility] Last Admin: 05/07/21 05:25 Dose: 40 mg Documented by: OLE Pharmacy Consult (Consult Rx Vancomycin Dosing) 1 each MISCELLANE DAILY PRN PRN Reason: Consult order Pharmacy Consult (Consult Rx Vancomycin Dosing) 1 each MISCELLANE DAILY PRN PRN Reason: Consult order Senna (Sennosides 8.6 Mg Tablet) 17.2 mg PO BEDTIME PRN PRN Reason: Constipation Sodium Chloride (0.9 % Sodium Chloride Flush 3 Ml Syringe) 3 ml IVFLUSH QSHIFT [facility] Last Admin: 05/07/21 09:42 Dose: 3 ml Documented by: JUANIS Ziprasidone (Ziprasidone 20 Mg Capsule) 20 mg PO BID [facility] Last Admin: 05/07/21 09:42 Dose: 20 mg Documented by: JUANIS Labs CBC & Chem 7: 05/06/21 06:44 05/07/21 05:58 Labs: Laboratory Results - last 24 hr 05/06/21 05/06/21 05/06/21 11:02 16:09 19:28 Estim Creat Clear Calc Estimated GFR POC Glucose 127 H 133 H 119 H Vancomycin Trough 05/07/21 05/07/21 05/07/21 02:06 05:58 07:44 Estim Creat Clear Calc 76.7 Estimated GFR > 60 POC Glucose 115 Vancomycin Trough 10.3 Microbiology Microbiology Results: Microbiology 05/01/21 22:35 Blood Culture - Final Blood - Venous No growth after 5 days. 05/01/21 22:32 Blood Culture - Final Blood - Venous No growth after 5 days. Assessment and Plan (1) Acute UTI: Status: Acute Assessment and Plan: 75-year-old female with a past medical history of hypertension, hyperlipidemia, diabetes, CKD, paroxysmal AFib-not on anticoagulation, vitamin B12 deficiency, hypothyroidism, dysphagia, GERD, osteoarthritis, [place] [facility] resident, history of UTIs, history of aspiration pneumonia sent from the [place] [facility] with a chief complaint of poor oral intake for the past few days and nausea/vomiting Concern for aspiration pneumonia.? Admitted for further management. Severe sepsis. resolved Pseudomonas UTI Aspiration pneumonia -clnically responding to treatment -continue Meropenem for 7 days per ID, initially was on vanco and cefepime D3 -she refused midline, will check if SNF can handle peripheral line for 4 more day Toxic metabolic encephalopathy--related UTI, high sodium, pna--she's improved, baseline not quite clear Hypernatremia--very mild 146, now 143 Tremors. no hx of parkinsons--appear chronic, MRI no stroke, Neuro recommend further eval after completing UTI, PNA treatment Nausea/Vomiting--likely related to UTI, no SBO on CT, gallstone biliary sludge, no intervention per surgery JUAN. Likely prerenal. Resolved Hyperkalemia. Likely in the setting of JUAN.?resolved Diabetes--SSI Hypothyroidism. Continue home levothyroxine Hypertension--BP meds have been on hold, d/t hypotension, BP now on high side, restart meds Paroxysmal AFib--not anticoagulated, HR controlled, no rate controlling agents History of bipolar/major depression Continue home clonazepam? Continue fluoxetine, ziprasidone Dysphagia puree diet ? aspiration precautions D/C today Quality Stroke Does the patient have a stroke diagnosis?: No VTE Prior VTE?: No VTE Risk Level:: Medical - moderate - high VTE Device Contraindication: Treatment Not Indicated VTE Drug Contraindication: N/A - Med Ordered
--- NOTE | 2021-05-07 11:37 | MHC.SP.ADU ---
Referring provider: Dr. Raul Pierre Reason for Referral: pt with aspiration pneumonia, baseline dysphagia Type of Treatment: 76167 Clinical Swallowing Evaluation Date of Plan of Treatment: 05/02/21 Onset of Symptoms/Illness: 03/07/21 Date Treatment Started: 05/02/21 Medical Diagnosis: aspiration pneumonia, toxic metabolic encephalopathy secondary to severe sepsis, partial small bowel obstruction/gallstones/biliary sludge, acute UTI, hypoxia Primary Speech Language Diagnosis: R13.12 Oropharyngeal Phase Dysphagia Secondary Speech Language Diagnosis: History Pt is a 75 year old female who presented from the [facility] at [facility] she resides due to decreased O2 SAT, nausea, vomiting, and poor PO intake for several days. Pt has a history of dysphagia. RN reported pt's baseline diet consistency was documented to be NDD1 PUREED solids and THIN liquids. Chest CT 04/22 revealed bilateral consolidations including a dense consolidation at the right lower lobe felt to be consistent with an aspiration pneumonia. Imaging also revealed a partial small bowel obstruction. + UTI also noted. Medical History: Acid Reflux Allergies COPD Diabetes High Blood Pressure Other: several medication allergies (see allergies list), esophageal achalasia, anxiety, bipolar disorder, CKD, depression, dysphagia, history of COVID-19, hypothyroidism, OA, paroxysmal atrial fibrillation, polyneuropathy, vitamin B12 deficiency anemia Medication List: Please see pt's chart for list of medications. Recent Hospitalizations: No Respiratory Needs: Non-Rebreather Mask Patient Orientation: Unable to Assess Social History: Employment Status: Highest level of education obtained: Current Living Situation: Pt resides at a [facility] care facility. RN reported that pt consumes an NDD1 PUREED diet with THIN liquids at baseline. Assistive Devices in use: Comment: Past Speech Language Therapy: Other Therapies Seen in Current Calendar Year: Unknown Other: Swallowing History: Dysphagia Specific: Risk of Aspiration Oralpharyngeal Dysphagia Comments: Pre-eval Risk for Aspiration: Poor PO Intake Pre-evaluation Dietary Consistencies: Pureed (NDD1) Pre-eval Liquid Intake: [place] Thick Pre-eval Medication Intake: NPO Reported Speech, Language, Cognition difficulties: Cognition Swallowing Comments: Pt diet currently pureed (NDD1) with nectar thick liquids. On evaluation today, Pt tolerated small trial amounts of nectar thick liquid with delayed pharyngeal phase noted, good oral clearance, and no cough or vocal change noted. Pt. expressed displeasure regarding thickening of liquids, education given regarding current need for thickening and patient safety. Quality of Life: Patient Stated Goal of Speech-Language Therapy: Assessment Speech Production: Clinical Impression: Observations: Informal Voice Assessment: Voice Loudness: Voice Nasal Resonance: Voice Oral Resonance: Voice Phonatory-based Quality: Voice Pitch: Voice Other Observations: Clinical Impression: Clinicial Observations: Tests of Speech & Lang Adults: Clinical Impression: Observations: Tests of Cognition: Clinical Impression: Observations: Augmentative and Alternative Communication: Observations: Impressions and Recommendations Summary: Impact on Daily Function/Activity Limitations: Daily Activities: Moderate Interpersonal Interactions: Moderate Education: None Employment: None Community: Moderate Prognosis for Improvement: Fair Comment: Recommendation for Speech Therapy: Inpatient Speech Therapy Frequency/Duration: Date Range for Service Requested: Time to Reassess: Retirement Goals: Short Term Goals: Goal # : Goal Status: Goal# : Goal Status: Goal # : Goal Status: Goal # : Goal Status: Recommended Referrals to be Discussed with Primary Care Provider: Patient Education: Completed: Yes Patient/Caregiver Education: Described Results of Evaluation Comments/Barriers to Learning: impaired cognition Computer Operations Technician Clinican/Clinical Fellow: No Supervisory Statement: N/A Speech Language Pathologist: Sarita Patel M.A., CCC-DENTAL OFFICE MANAGER
[2021-05-07 11:39] LABS: Glucose, Whole Blood 148 mg/dL (60-115)
--- NOTE | 2021-05-07 11:45 | MHC.SL.SWA ---
Speech Pathologist Impression: Risk of Aspiration Oralpharyngeal Dysphagia Risk of Aspiration Due to: Poor PO Intake Dysphasia Diet Status: Upgrade Liquid Consistency and Strategies for Safe Swallow: Liquid Intake Recommendation: [place] Thick Liquid Intake Strategies: Small Sips No Straws Solid Food Consistency: Dietary Recommendations: Pureed (NDD1) Additional Modifications to Solid Foods: Oral Medication Intake: Crushed with Puree Compensatory Strategies and Precautions to be Taken for Safe Swallow: Sitting Upright (90 deg) No Straw Small Bites and Sips Alternate Liquids/Solids Supervision While Eating and Drinking for Safe Swallow: Total Assistance Foods to Avoid: Swallowing Recommended Treatments: Compens. Strategy Educat. Recommendation for Speech: Inpatient Speech Therapy Comment: Frequency/Duration: Date Range for Service Req: Timeline to reassess: Senior Manager Quality Assurance Clinican/Clinical Fellow: No Supervisory Statement: I have reviewed and agree with the student/clinical fellow's documentation: N/A Speech Language Pathologist: Sarita aPtel M.A., CCC-IMPLEMENTATION SERVICES ANALYST
--- NOTE | 2021-05-07 11:49 | MHC.SL.SWA ---
Speech Pathologist Impression: Risk of Aspiration Oralpharyngeal Dysphagia Risk of Aspiration Due to: Poor PO Intake Dysphasia Diet Status: Upgrade Liquid Consistency and Strategies for Safe Swallow: Liquid Intake Recommendation: [place] Thick Liquid Intake Strategies: Small Sips No Straws Solid Food Consistency: Dietary Recommendations: Pureed (NDD1) Additional Modifications to Solid Foods: Oral Medication Intake: Crushed with Puree Compensatory Strategies and Precautions to be Taken for Safe Swallow: Sitting Upright (90 deg) No Straw Small Bites and Sips Alternate Liquids/Solids Supervision While Eating and Drinking for Safe Swallow: Total Assistance Foods to Avoid: Swallowing Recommended Treatments: Compens. Strategy Educat. Recommendation for Speech: Inpatient Speech Therapy Comment: Pt was seen for dysphagia treatment while seated upright in bed. Pt was alert and oriented to place and person. Current diet consistency NDD1 PUREED solids with NECTAR THICK liquids. Explanation/education was given to Pt. re: need for thickened liquids. Pt accepted spoonful of thickened orange juice, with mildly delayed oral phase mild delay of pharyngeal swallow. Oral cavity was clear after swallow. No cough or change in vocal quality was noted following swallow trials. Pt. refused trial of puree consistency. Water with thickener was noted to be at bedside. Continue with current diet as previously recommended. [ End ] Frequency/Duration: Date Range for Service Req: Timeline to reassess: Staffing Branch Manager Clinican/Clinical Fellow: No Supervisory Statement: I have reviewed and agree with the student/clinical fellow's documentation: N/A Speech Language Pathologist: Sarita Patel M.A., CCC-SALES CENTER MANAGER
[2021-05-07 12:00] VITALS: BP 163/91; PULSE 87; RESP 18; TEMP 36.6; O2SAT 96
--- NOTE | 2021-05-07 12:21 | MHC.CM.PN ---
Addendum entered by Pamela Cheema 05/07/21 12:32: PT WILL DC BACK TO [facility] TOMORROW AFTER HAVING A NEW PERIPHERAL LINE PLACED BLS TRANSPORT NEEDED Original Note: PT IS CLEARED TO DC HOWEVER WILL NEED 4 MORE DAYS OF IV MEDS AND REFUSED TO HAVE A MIDLINE PLACED. CM SPOKE TO [facility] LIAISON WHO REPORTED CONCERN THAT THERE WOULD BE NO ONE AVAILABLE AT THE SNF IF PT NEEDED A NEW LINE. SHE REPORTED IF A NEW LARGE-BORE IV LINE WAS PLACED TOMORROW MORNING, THEY WOULD BE ABLE TO TAKE HER AFTER THAT THE LINE SHOULD LAST THREE DAYS. SHE ALSO ASKED THAT CM FIND OUT OF PT IS A DIFFICULT STICK IN CASE ONE NEEDED TO BE DONE UNEXPECTEDLY
--- NOTE | 2021-05-07 12:35 | PM.PNGS ---
Subjective Subjective Date of Service: 05/07/21 Interval history: More alert today Answers questions Says he has a little bit of discomfort in the abdomen Says she feels ?okay? Physical Exam Vital Signs: Vital Signs: Last Vital Signs Temp 97.3 F 05/07/21 08:00 Pulse 82 05/07/21 08:00 Resp 16 05/07/21 08:00 BP 139/76 05/07/21 08:00 Pulse Ox 94 05/07/21 08:00 Body Mass Index 31.3 Const: Other: Chemistry 05/05/21 05/06/21 05/07/21 02:10 06:44 05:58 Sodium 146 H 143 Potassium 4.4 3.7 Carbon Dioxide 22 22 BUN 16 D 10 Creatinine 0.86 0.73 0.71 Calcium 8.1 L 7.6 L D Hematology 05/05/21 05/06/21 02:10 06:44 WBC 12.5 H 8.6 Hgb 11.4 L 10.4 L Plt Count 376 366 General: no acute distress Resp: Effort & Inspection: normal respiratory effort Cardio: Rhythm: abnormal rhythm GI: Other: Soft, nondistended, and no guarding or rebound Procedures Date of Service Date of Service: 05/07/21 Progress Note: A&P Assessment and plan (1) Abnormal CT of the abdomen: Status: Acute Assessment and Plan: No significant tenderness Seemed to have good GI function Abdomen soft, nontender, benign Diet as tolerated No surgical intervention at this time Fall Risk Details Current Medications: Current Medications Acetaminophen (Acetaminophen 325 Mg Tablet) 650 mg PO Q6H PRN PRN Reason: Pain, Mild (Pain Scale 1-3) Last Admin: 05/06/21 21:35 Dose: 650 mg Documented by: Benztropine Mesylate (Benztropine Mesylate 1 Mg Tablet) 1 mg PO BID [facility] Last Admin: 05/07/21 09:42 Dose: 1 mg Documented by: Clonazepam (Clonazepam 0.5 Mg Tablet) 0.25 mg PO BEDTIME [facility] Last Admin: 05/06/21 21:32 Dose: 0.25 mg Documented by: Cyanocobalamin (Cyanocobalamin (Vitamin B-12) 100 Mcg Tablet) 200 mcg PO DAILY [facility] Last Admin: 05/07/21 09:42 Dose: 200 mcg Documented by: Dextrose (Dextrose 50 % 25 Gm/50 Ml Vial) 25 gm IVPUSH Q15M PRN; Protocol PRN Reason: per Hypoglycemia Standing Ord. Fluoxetine HCl (Fluoxetine Hcl 10 Mg Capsule) 10 mg PO DAILY [facility] Last Admin: 05/07/21 09:42 Dose: 10 mg Documented by: Fluoxetine HCl (Fluoxetine Hcl 20 Mg Capsule) 40 mg PO DAILY [facility] Last Admin: 05/07/21 09:42 Dose: 40 mg Documented by: Gabapentin (Gabapentin 400 Mg Capsule) 400 mg PO DAILY [facility] Last Admin: 05/07/21 09:42 Dose: 400 mg Documented by: Gabapentin (Gabapentin 600 Mg Tablet) 600 mg PO BID [facility] Last Admin: 05/07/21 09:42 Dose: 600 mg Documented by: Glucose (Glucose Gel 15 Gm Gel..Gram.) 15 gm PO Q15M PRN; Protocol PRN Reason: per Hypoglycemia Standing Ord. Heparin Sodium (Porcine) (Heparin Sodium,Porcine 5,000 Unit/Ml Vial) 5,000 unit SUBCUT Q8H [facility] Last Admin: 05/07/21 11:48 Dose: 5,000 unit Documented by: Meropenem 1 gm/ Sodium (Chloride) 100 mls @ 100 mls/hr IV Q8H [facility] Last Infusion: 05/07/21 10:46 Dose: Infused Documented by: Insulin Human Lispro (Insulin Lispro 100 Unit/Ml 3 Ml Vial) 0 unit SUBCUT QIDACHS [facility]; Protocol Last Admin: 05/07/21 11:40 Dose: Not Given Documented by: Levothyroxine Sodium (Levothyroxine Sodium 75 Mcg Tablet) 75 mcg PO DAILY@0600 [facility] Last Admin: 05/07/21 05:24 Dose: 75 mcg Documented by: Loratadine (Loratadine 10 Mg Tablet) 10 mg PO DAILY [facility] Last Admin: 05/07/21 09:42 Dose: 10 mg Documented by: Melatonin (Melatonin 3 Mg Tablet) 6 mg PO BEDTIME PRN PRN Reason: Insomnia Nitroglycerin (Nitroglycerin 0.4 Mg Tab.Subl) 0.4 mg SUBLINGUAL Q5MX3 PRN PRN Reason: Chest Pain Omeprazole (Omeprazole 40 Mg Capsule.Dr) 40 mg PO DAILY@0630 [facility] Last Admin: 05/07/21 05:25 Dose: 40 mg Documented by: Pharmacy Consult (Consult Rx Vancomycin Dosing) 1 each MISCELLANE DAILY PRN PRN Reason: Consult order Pharmacy Consult (Consult Rx Vancomycin Dosing) 1 each MISCELLANE DAILY PRN PRN Reason: Consult order Senna (Sennosides 8.6 Mg Tablet) 17.2 mg PO BEDTIME PRN PRN Reason: Constipation Sodium Chloride (0.9 % Sodium Chloride Flush 3 Ml Syringe) 3 ml IVFLUSH QSHIFT [facility] Last Admin: 05/07/21 09:42 Dose: 3 ml Documented by: Ziprasidone (Ziprasidone 20 Mg Capsule) 20 mg PO BID [facility] Last Admin: 05/07/21 09:42 Dose: 20 mg Documented by: Time Spent With Patient Time: Total time spent is greater than 50% in coordination of care (as documented) at patient's floor/unit and/or counseling patient: Time with patient: 15 - 24 minutes Quality Stroke Does the patient have a stroke diagnosis?: No VTE Prior VTE?: No VTE Risk Level:: Medical - moderate - high VTE Device Contraindication: Treatment Not Indicated VTE Drug Contraindication: N/A - Med Ordered
[2021-05-07 14:59] VITALS: BP 114/72; PULSE 105; RESP 18; TEMP 36.7; O2SAT 94
[2021-05-07 16:39] LABS: Glucose, Whole Blood 142 mg/dL (60-115)
[2021-05-07 20:00] VITALS: BP 140/73; PULSE 94; RESP 18; TEMP 36.3; O2SAT 98
[2021-05-07 22:02] LABS: Glucose, Whole Blood 121 mg/dL (60-115)
[2021-05-07 23:34] VITALS: BP 141/74; PULSE 88; RESP 18; TEMP 36.7; O2SAT 93
[2021-05-08 04:00] VITALS: BP 140/97; PULSE 95; RESP 18; TEMP 36.8; O2SAT 94
[2021-05-08] MEDS: Levothyroxine Sodium 75 MCG TABLET PO (06:01)
[2021-05-08] MEDS: Heparin Sodium,Porcine 5,000 UNIT/ML VIAL 5000 UNIT SUBCUT (06:01)
[2021-05-08] MEDS: Omeprazole 40 MG CAPSULE.DR PO (06:01)
[2021-05-08 06:46] LABS: Creatinine Clr Calc Pharmacy 77.8; Estimated Glomerular Filt Rate > 60
--- NOTE | 2021-05-08 07:35 | P.DS_ITS ---
DS: Providers Provider Date of Service: 05/08/21 Date of admission: 05/02/21 02:08 Primary care physician: Justin Sahu MD Consults: 05/02/21 02:15 Consult to Infectious Diseases Routine Consulting Provider: Cathy Gamez Reason for consultation: sepsis 05/02/21 04:08 Consult to General Surgery Routine Consulting Provider: Paulina Cotton Reason for consultation: Partial SBO; Biliary sludge/stones 05/04/21 09:01 Consult to Cardiology Routine Consulting Provider: Julius Marion Reason for consultation: afib rvr Has provider been notified: No 05/04/21 09:07 Consult to Neurology Routine Consulting Provider: [facility] Reason for consultation: tremors, facial twitching Has provider been notified: No 05/05/21 08:48 Consult to Infectious Diseases Routine Consulting Provider: Cathy Gamez Reason for consultation: pseudomonas ucx Has provider been notified: No 05/05/21 11:12 Consult to Infectious Diseases Stat Consulting Provider: Susan Lundberg Reason for consultation: MEROPENEM Has provider been notified: Yes DS: Diagnosis Discharge Diagnosis (1) Abnormal CT of the abdomen: Status: Resolved DS: Summary Hospital Course Hospital Course: Chief Complaint: Nausea/Vomiting 75-year-old female with a past medical history of hypertension, hyperlipidemia, diabetes, CKD, paroxysmal AFib-not on anticoagulation, vitamin B12 deficiency, hypothyroidism, dysphagia, GERD, osteoarthritis, detention resident, history of UTIs, history of aspiration pneumonia sent from the detention with a chief complaint of poor oral intake for the past few days and nausea/vomiting today; Patient is drowsy but able to follow simple commands and responds to verbal stimuli.? Patient is a poor historian. [facility] [place]spoke to the nurse Garry's who mentioned that for past many days patient has not been eating and drinking well; today patient had few episodes of nausea and vomiting; denies any blood in the vomitus and appears weak in general; subsequently sent to the hospital for further management. Denies patient complaining of any chest pain lightheadedness or dizziness.? Denies any falls. Reports that patient is on liquid diet and has poor oral intake. Review of all other systems is limited given patient appears confused and RN unable to provide much information. ZULMA Castañeda at the rehab facility mentioned that patient has a most form from glucose of 90 nurses do not resuscitate do not intubate.? Unable to provide me the information of the patient's healthcare proxy. I spoke to the patient's son Garry over the phone who mentioned that he was not informed about the patient being transferred to the hospital; and does not know anything about the patient's current history of presenting illness. After discussion with the patient's son he wants her mother to be full code. ER course:? Per ER team patient unable to provide much information; patient has coarse breath sounds, rales and rhonchi; concern for aspiration pneumonia.? Given antibiotics.? Lab showed leukocytosis.? Patient initially had soft blood pressure-improved with IV fluids.? Admitted for further management.? Also noted to be in JUAN. Hospital course: Patient presented with nausea and vomitting, poor oral intake, renal failure, and altered mental status, CT chest showed bilateral penumonia associated with acute hypoxic respiratory failure, CT scan which showed dilated small bowel loops with no transition point and air in the colon and reviewd by surgery and thought that the finding were do to ileus rather than a veronica obstruction, additionally she had UTI with severe spsis,and culture grew Psuedomonas and has been seen by ID Dr. Lux who recommend 7 days treatments for UTI and also to treat pneumonia. she has been treated for 9 doses so far and has 12 more doses to go with Meropenem 1gram Q8. Presently afebrile, last WBC normal. As for Toxic metabolic encephalopathy due to UTI, JUAN, dehydration this has resolved and she at her baseline mental status. She had mild hypernatremia that has resolved. Juan was due to pre renal azotemia and has resolved with IVF. Hyperkalemia due to renal failure has also resolved. For all other chronic issues including AFIB, Diabetes, Tremors, Hypothyroidism, Psych (bipolar depression) to continue prior meds. Of note was seen by Dr. Contreras, Neurologist assessed her and recommends recommended MRI which showed no acute finding, tremors can be further eval on outpatient basis. To have dysphagia. She refused a PICC line and therefore will complete the rest of antibiotics via a peripheral line Final diagnoses: 1/Severe sepsis 2/bilateral pneumonia 3/Pseudomonas UTI 4/JUAN 5/Hyperkalemia 6/Toxic metabolic encephalopathy 7/tremors 8/ileus Time Spent with Patient Time attestation: Total time spent providing and/or coordinating discharge services: Discharge coordination time: Greater than 30 minutes Quality: Stroke Does the patient have a stroke diagnosis?: No Physical Exam Vital Signs: Vital Signs: Last Vital Signs Temp 98.2 F 05/08/21 04:00 Pulse 95 05/08/21 04:00 Resp 18 05/08/21 04:00 BP 140/97 H 05/08/21 04:00 Pulse Ox 94 05/08/21 04:00 Body Mass Index 31.3 DS: Data Data Completed and Pending Completed studies during hospitalization [Text1]: Procedures Extirpation of Matter from Esophagus, Via Natural or Artificial Opening Endoscopic (03/08/21) Labs on day of discharge: Laboratory Results - last 24 hr 05/07/21 05/07/21 05/07/21 07:44 11:09 16:23 Creatinine Estim Creat Clear Calc Estimated GFR POC Glucose 115 148 H 142 H 05/07/21 05/08/21 21:55 05:50 Creatinine 0.70 Estim Creat Clear Calc 77.8 Estimated GFR > 60 POC Glucose 121 H Discharge Plan Discharge Anticipated Discharge Date/Time: 05/08/21 09:43 Patient Disposition: Xfer SNF Discharge Diagnosis: UTI Sepsis, Pneumonia Toxic metabolic encephalopathy Referrals: [facility] [Outside] - 1 Week Justin Sahu MD [Primary Care Provider] - 1 Week Discharge Medications: New meropenem 1 gram recon soln 1 g IV Q8H Qty: 12 RF: 0 Continued pioglitazone [Actos] 15 mg Tablet 15 mg PO DAILY RF: 0 gabapentin 600 mg tablet 1 tab PO BID RF: 0 cyanocobalamin (vitamin B-12) 100 mcg Tablet 200 mcg PO DAILY RF: 0 enalapril maleate [Vasotec] 5 mg Tablet 5 mg PO DAILY RF: 0 cetirizine 10 mg Tablet 10 mg PO DAILY RF: 0 clonazepam 0.5 mg tablet 1 tab PO BEDTIME RF: 0 gabapentin 400 mg capsule 1 cap PO DAILY RF: 0 levothyroxine 75 mcg tablet 1 tab PO DAILY RF: 0 ziprasidone HCl [Geodon] 20 mg Capsule 20 mg PO BID RF: 0 benztropine 1 mg tablet 1 tab PO BID RF: 0 fluoxetine 10 mg capsule 1 cap PO DAILY RF: 0 nitroglycerin 0.4 mg tablet, sublingual 0.4 mg sublingual DIRECTED PRN (Reason: Chest Pain) RF: 0 fluoxetine 20 mg capsule 2 cap PO QAM RF: 0 oxycodone 5 mg tablet 1 tab PO BID PRN (Reason: Pain) RF: 0 clonazepam 0.25 mg Tablet,Disintegrating 0.25 mg PO DAILY PRN (Reason: Anxiety) RF: 0 fentanyl 12 mcg/hr patch 72 hour 1 patch topical Q3D RF: 0 omeprazole 40 mg capsule,delayed release(DR/EC) 40 mg PO DAILY Qty: 30 RF: 0 Discharge Orders: Discharge Order (Routine); Ordered 05/08/21 Ordered By: Christian Li Diet: advance to usual diet Activity on Discharge: As tolerated Stand Alone Forms: Patient Portal Discharge page Care Plan Goals: Full recovery from sepsis, pneumonia and UTI Health Concerns: Pneumonia, aspiration risk, UTI Plan of Treatment: Meopenem 1 loly Q8 for 3 more days--(needs 12 more dose for total of 21 doses, 9 doses in the hospital) Assessment: As above Discharge Date/Time: 05/08/21 12:12
[2021-05-08 07:41] LABS: Glucose, Whole Blood 145 mg/dL (60-115)
[2021-05-08 07:59] VITALS: BP 145/69; PULSE 117; RESP 18; TEMP 37.2; O2SAT 94
[2021-05-08] MEDS: 0.9 % Sodium Chloride Flush 3 ML SYRINGE IVFLUSH (09:33)
[2021-05-08] MEDS: Gabapentin 400 MG CAPSULE PO (09:34)
[2021-05-08] MEDS: Cyanocobalamin (Vitamin B-12) 100 MCG TABLET 200 MCG PO (09:34)
[2021-05-08] MEDS: Loratadine 10 MG TABLET PO (09:34)
[2021-05-08] MEDS: FLUoxetine HCl 10 MG CAPSULE PO (09:35)
[2021-05-08] MEDS: FLUoxetine HCl 20 MG CAPSULE 40 MG PO (09:35)
[2021-05-08] MEDS: Gabapentin 600 MG TABLET PO (09:36)
[2021-05-08] MEDS: Ziprasidone 20 MG CAPSULE PO (09:36)
[2021-05-08] MEDS: Benztropine Mesylate 1 MG TABLET PO (09:37)
--- NOTE | 2021-05-08 10:39 | MHC.SL.DTX ---
Dysphagia Diet modifications: Last documented Solid diet consistencies: Pureed (NDD1) Last documented Liquid consistency: [place] Thick Last documented Medication Administration: crushed in puree Changes made to current diet?: No Liquid Consistency and Strategies: Liquid Intake Recommendation: [place] Thick Compensatory Strategies for Safe Swallow: Small Sips No Straws Compensatory Strategies for Safe Swallow(b): Sitting Upright (90 deg) No Straw Small Bites and Sips Alternate Liquids/Solids Solid Food Consistency: Dietary Recommendations: Pureed (NDD1) Additional Modifications to Solids: Oral Medication Intake: Crushed with Puree Strategies and Precautions to be Taken for Safe Swallow: Sitting Upright (90 deg) No Straw Small Bites and Sips Alternate Liquids/Solids Supervision While Eating and/Drinking: Total Assistance Foods to Avoid: Swallowing Recommended Treatments: Compens. Strategy Educat. Level of Impact on: Daily activities: Moderate Education: None Employment: None Community: Moderate Prognosis for Improvement: Fair Recommendation for Speech: Inpatient Speech Therapy Additional Comments: Treatment: Pt was seen for dysphagia treatment with RN present. Current diet consistency NDD1 PUREED solids with NECTAR thick liquids. Pt's nearly full breakfast tray was at her bedside which demonstrated pt did not consume much at all. RN reported pt has had a poor PO intake. RD notified via secure text. Pt declined all solids and liquids offered, stating I'm not hungry . Pt even declined a trial of a tsp of thin water despite education provided. Pt demonstrated a moderately delayed pharyngeal swallow trigger with medications crushed in puree provided by RN followed by continuous mastication like movements despite her oral cavity being empty. Pt complained about the foul taste of the medication though again continued to decline all liquids offered to clear the taste from her oral cavity. Continue with pt's current diet as stated above. Pt's reported baseline diet is NDD1 PUREED solids with thin liquids. [facility] will continue to follow pt. Data Management Manager Clinican/Clinical Fellow: No Supervisory Statement: I have reviewed and agree with the student/clinical fellow's documentation: N/A Speech Language Pathologist: Celestina Kahn M.A., [facility]
[2021-05-08 11:15] LABS: Glucose, Whole Blood 167 mg/dL (60-115)
--- NOTE | 2021-05-08 11:37 | MHC.CM.PN ---
PT HAD A NEW IV LINE PLACED THIS MORNING AND IS SCHEDULED TO RETURN TO [facility] FOR LTC AFTER 1200 HOURS TODAY. A VM MESSAGE WAS LEFT FOR PTS SON, LYNSEY ([phone]) INFORMING HIM OF [place] AND MEDICARE RIGHTS.
== END 2021-05-08 12:12 | disposition skilled nursing facility (03) | DRG 871 ==
LOC: HO.ED 22:16 → HO.EDOVER 05-02 02:32 → HO.IMC 05-03 16:42
PROVIDERS: Nurse Practitioner Acute Care; Admitting Provider Hospitalist; Emergency Provider Student in an Organized Health Care Education/Training Program; PCP Family Medicine; Visit Provider Internal Medicine
DX: A41.9 Sepsis, unspecified organism (principal); J69.0 Pneumonitis due to inhalation of food and vomit; G92.8 Other toxic encephalopathy; N39.0 Urinary tract infection, site not specified; N17.9 Acute kidney failure, unspecified; K56.7 Ileus, unspecified; E87.0 Hyperosmolality and hypernatremia; R65.20 Severe sepsis without septic shock; I12.9 Hypertensive chronic kidney disease with stage 1 through stage 4 chronic kidney disease, or unspecified chronic kidney disease; I48.0 Paroxysmal atrial fibrillation; E87.5 Hyperkalemia; F31.9 Bipolar disorder, unspecified; R00.0 Tachycardia, unspecified; R25.1 Tremor, unspecified; R13.10 Dysphagia, unspecified; B96.5 Pseudomonas (aeruginosa) (mallei) (pseudomallei) as the cause of diseases classified elsewhere; N18.9 Chronic kidney disease, unspecified; E11.22 Type 2 diabetes mellitus with diabetic chronic kidney disease; E86.0 Dehydration; E03.9 Hypothyroidism, unspecified; Z20.822 Contact with and (suspected) exposure to COVID-19; Z88.0 Allergy status to penicillin; Z88.2 Allergy status to sulfonamides; Z79.890 Hormone replacement therapy; Z79.899 Other long term (current) drug therapy
CPT/HCPCS: 36415; 70551; 71045; 71250; 74176; 80048; 80202; 81001; 82565; 82947; 83605; 84484; 85025; 85027; 87040; 87086; 87088; 87186; 87635; 92610; 96361; 96374; 97162; 99285; C1758; J0692; J0696; J2185; J3370

== ENCOUNTER 2021-05-25 22:05 | Outpatient (REF) | payer SELFPAY ==
[2021-05-25 07:09] LABS: Hematocrit 34.9 % (37.0-47.0); Hemoglobin 10.8 g/dl (12.0-16.0); Mean Corpuscular HGB Conc 30.9 g/dl (31.0-35.0); Mean Corpuscular Hemoglobin 32.3 pg (27.0-33.0); Mean Corpuscular Volume 104.5 fL (80.0-98.0); Mean Platelet Volume 10.1 fL (9.4-12.3); Platelet Count 290 X10*3/uL (160-400); Red Blood Count 3.34 X10*6/uL (4.20-5.50); Red Cell Distribution Width 14.5 % (11.0-16.0); White Blood Count 5.5 X10*3/uL (4.8-10.8)
[2021-05-25 07:33] LABS: Anion Gap 13 (12-20); Blood Urea Nitrogen 11 mg/dL (9-16); Calcium 8.5 mg/dL (8.4-10.2); Carbon Dioxide 28 mmol/L (22-29); Chloride 106 mmol/L (96-108); Estimated Glomerular Filt Rate > 60; Glucose Random 97 mg/dL (60-115); Potassium 4.2 mmol/L (3.3-5.1); Sodium 143 mmol/L (135-145)
== END 2021-05-25 22:06 | disposition home or self-care (01) ==
LOC: HO.MMNH3L 22:05
PROVIDERS: Visit Provider Family Medicine
DX: A41.52 Sepsis due to Pseudomonas (principal); N18.9 Chronic kidney disease, unspecified
CPT/HCPCS: 36415; 80048; 85027

== ENCOUNTER 2021-06-01 00:53 | Outpatient (REF) | payer MEDICARE, MEDICAID, SELFPAY ==
[2021-06-01 07:10] LABS: Hematocrit 34.6 % (37.0-47.0); Hemoglobin 10.7 g/dl (12.0-16.0); Mean Corpuscular HGB Conc 30.9 g/dl (31.0-35.0); Mean Corpuscular Hemoglobin 32.5 pg (27.0-33.0); Mean Corpuscular Volume 105.2 fL (80.0-98.0); Mean Platelet Volume 9.9 fL (9.4-12.3); Platelet Count 322 X10*3/uL (160-400); Red Blood Count 3.29 X10*6/uL (4.20-5.50); Red Cell Distribution Width 15.1 % (11.0-16.0); White Blood Count 5.1 X10*3/uL (4.8-10.8)
[2021-06-01 07:25] LABS: Anion Gap 11 (12-20); Blood Urea Nitrogen 21 mg/dL (9-16); Calcium 8.6 mg/dL (8.4-10.2); Carbon Dioxide 30 mmol/L (22-29); Chloride 107 mmol/L (96-108); Estimated Glomerular Filt Rate 37; Glucose Random 83 mg/dL (60-115); Potassium 5.2 mmol/L (3.3-5.1); Sodium 143 mmol/L (135-145)
== END 2021-06-01 00:54 | disposition home or self-care (01) ==
LOC: HO.MMNH3L 00:53
PROVIDERS: Visit Provider Family Medicine
DX: A41.52 Sepsis due to Pseudomonas (principal); J18.9 Pneumonia, unspecified organism
CPT/HCPCS: 36415; 80048; 85027

== ENCOUNTER 2021-06-08 00:12 | Outpatient (REF) | payer MEDICARE, MEDICAID, SELFPAY ==
[2021-06-08 07:56] LABS: Hematocrit 36.8 % (37.0-47.0); Hemoglobin 11.4 g/dl (12.0-16.0); Mean Corpuscular Volume 103.4 fL (80.0-98.0); Mean Platelet Volume 10.1 fL (9.4-12.3); Platelet Count 390 X10*3/uL (160-400); Red Blood Count 3.56 X10*6/uL (4.20-5.50); Red Cell Distribution Width 14.9 % (11.0-16.0); White Blood Count 6.4 X10*3/uL (4.8-10.8)
[2021-06-08 08:13] LABS: Anion Gap 12 (12-20); Blood Urea Nitrogen 20 mg/dL (9-16); Calcium 8.7 mg/dL (8.4-10.2); Carbon Dioxide 29 mmol/L (22-29); Chloride 107 mmol/L (96-108); Estimated Glomerular Filt Rate 44; Glucose Random 93 mg/dL (60-115); Potassium 4.9 mmol/L (3.3-5.1); Sodium 143 mmol/L (135-145)
== END 2021-06-08 00:13 | disposition home or self-care (01) ==
LOC: HO.MMNH3L 00:12
PROVIDERS: Visit Provider Family Medicine
DX: A41.52 Sepsis due to Pseudomonas (principal); J18.9 Pneumonia, unspecified organism
CPT/HCPCS: 36415; 80048; 85027

== ENCOUNTER 2021-06-12 01:49 | Emergency (ER) | payer MEDICARE, MEDICAID, SELFPAY ==
[2021-06-12 01:50] VITALS: BP 120/90; PULSE 80; O2SAT 78
--- NOTE | 2021-06-12 02:12 | PC.NURSE ---
[facility] notified of pt expiration. Declined per Segundo Membreno, case # [id number]
--- NOTE | 2021-06-12 03:20 | ED_ITS ---
HPI - General Adult General Chief complaint: Cardiac Arrest/CPR Stated complaint: UNRESPONSIVE Time Seen by Provider: 06/12/21 03:20 Source: EMS Mode of arrival: EMS History of Present Illness HPI narrative: 75-year-old female brought in by EMS after they were called by [facility] for a sick person and on arrival to the facility patient was found to be cyanotic, clammy, with agonal breathing and noted on her MOLST to be DNR / DNI. As per EMS her blood pressure continued to decline, they were unable to obtain access and then state that patient became asystolic at 1:41 a.m.. Related Data Home Medications Medication Instructions Recorded Confirmed benztropine 1 mg tablet 1 tab PO BID 03/08/21 05/02/21 cetirizine 10 mg tablet 10 mg PO DAILY 03/08/21 05/02/21 clonazepam 0.25 mg disintegrating 0.25 mg PO DAILY PRN 03/08/21 05/02/21 tablet clonazepam 0.5 mg tablet 1 tab PO BEDTIME 03/08/21 05/02/21 cyanocobalamin (vitamin B-12) 100 200 mcg PO DAILY 03/08/21 05/02/21 mcg tablet enalapril maleate 5 mg tablet 5 mg PO DAILY 03/08/21 05/02/21 (Vasotec) fentanyl 12 mcg/hr transdermal 1 patch TOPICAL Q3D 03/08/21 05/02/21 patch fluoxetine 10 mg capsule 1 cap PO DAILY 03/08/21 05/02/21 fluoxetine 20 mg capsule 2 cap PO QAM 03/08/21 05/02/21 gabapentin 400 mg capsule 1 cap PO DAILY 03/08/21 05/02/21 gabapentin 600 mg tablet 1 tab PO BID 03/08/21 05/02/21 levothyroxine 75 mcg tablet 1 tab PO DAILY 03/08/21 05/02/21 nitroglycerin 0.4 mg sublingual 0.4 mg SUBLINGUAL DIRECTED PRN 03/08/21 05/02/21 tablet oxycodone 5 mg tablet 1 tab PO BID PRN 03/08/21 05/02/21 pioglitazone 15 mg tablet (Actos) 15 mg PO DAILY 03/08/21 05/02/21 ziprasidone HCl 20 mg capsule 20 mg PO BID 03/08/21 05/02/21 (Geodon) Previous Rx's Medication Instructions Recorded omeprazole 40 mg capsule,delayed 40 mg PO DAILY #30 cap 03/12/21 release meropenem 1 gram intravenous 1 g IV Q8H #12 ea 05/08/21 solution Allergies Allergy/AdvReac Type Severity Reaction Status Date / Time ciprofloxacin [From CIPRO] Allergy Unknown UNKNOWN Verified 05/01/21 22:14 clarithromycin [From Biaxin] Allergy Unknown UNKNOWN Verified 05/01/21 22:14 Effexor Allergy Unknown Unknown Verified 05/01/21 22:14 Floxin Otic Allergy Unknown Unknown Verified 05/01/21 22:14 levofloxacin [From LEVAQUIN] Allergy Unknown UNKNOWN Verified 05/01/21 22:14 loratadine [From CLARITIN] Allergy Unknown UNKNOWN Verified 05/01/21 22:14 ofloxacin [From FLOXIN] Allergy Unknown UNKNOWN Verified 05/01/21 22:14 penicillin V Allergy Unknown Unknown Verified 05/01/21 22:14 Penicillins [PENICILLINS] Allergy Unknown UNKNOWN Verified 05/01/21 22:14 sertraline [Zoloft] Allergy Unknown Unknown Verified 05/01/21 22:14 Sulfa (Sulfonamide Allergy Unknown Unknown Verified 05/01/21 22:14 Antibiotics) sulfamethoxazole Allergy Unknown UNKNOWN Verified 05/01/21 22:14 [From BACTRIM] trimethoprim [From BACTRIM] Allergy Unknown UNKNOWN Verified 05/01/21 22:14 Review of Systems Review of Systems: Yes Unobtainable due to mental condition PMFSH Past Medical History Source: nursing notes reviewed Medical History Abnormal CT of the abdomen Achalasia, esophageal Anxiety Bipolar 1 disorder CKD (chronic kidney disease) Coarse tremors COPD (chronic obstructive pulmonary disease) Depression Difficulty in walking Dysphagia Gastro-esophageal reflux History of COVID-19 Hypertension Hypothyroidism Osteoarthritis Paroxysmal atrial fibrillation Polyneuropathy Tachycardia Toxic metabolic encephalopathy Type 2 diabetes mellitus Vitamin B12 deficiency 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 No spontaneous movement. Course Course Course Narrative: 0141: Patient in asystole as per EMS. 0153: ER assessment and confirmation of asystole 0400: ME declined case #[id number] Reevaluation(s) Reevaluation #1: Called next of kin, Garry Gutierrez ([phone]), and left a message for him to call the ER. Time: 02:31 Discharge Plan Discharge Clinical Impression: Cardiac arrest Patient Disposition: Date/Time: 06/12/21 01:41
--- NOTE | 2021-06-12 05:04 | PC.NURSE ---
[place] [facility] [place]
== END 2021-06-12 05:05 | disposition expired ==
PROVIDERS: Emergency Provider Student in an Organized Health Care Education/Training Program; PCP Family Medicine
DX: I46.9 Cardiac arrest, cause unspecified (principal); Z79.899 Other long term (current) drug therapy
CPT/HCPCS: 99283; 99284